=== PATIENT | male | born 1955 | race Caucasian/White ===

== ENCOUNTER 2017-09-12 07:53 | Inpatient (IN) | payer OTHER, BC ==
--- NOTE | 2017-09-12 08:44 | EDPHY ---
H & P Stated Complaint: 3 days of increasing weakness to bilat legs, difficulty in walking. HPI/ROS: CHIEF COMPLAINT: Leg weakness, "I'm losing so much strength" HISTORY OF PRESENT ILLNESS: The patient is a 62 y/o male complaining of progressive leg weakness and right-sided back pain over the past few weeks. He has a history of a remote neck injury causing incomplete quadriplegia with weakness in all extremities that is worse on the left side at baseline and multiple spinal fusions. He normally walks with a cane over short distances and wheelchair for long distances. He developed right-sided back pain a couple weeks ago that he was evaluated for by his PCP. X-rays at that time showed nothing acute. His weakness seemed to worsen from baseline around the same time and began to rapidly deteriorate this Saturday, 5 days ago. Since then his says he has been dragging his legs much more and having significant difficulty getting around. She called his neurosurgeon, Dr. Johnson, yesterday and was advised to come into the ED if symptoms worsened. This morning the patient "couldn't get in my truck this morning to go to work" so he came to the ED. He denies incontinence, saddle anesthesias, fever, recent illness, or recent trauma. REVIEW OF SYSTEMS: Constitutional: No fever, no chills Eyes: No visual changes ENT: No sore throat Respiratory: No cough, no shortness of breath Cardiac: No chest pain Gastrointestinal: No nausea, no vomiting, no abdominal pain Genitourinary: No hematuria, no dysuria Musculoskeletal: Worsening leg swelling Skin: Truncal rash for months Neurological: see HPI Psychiatric: No depression - Personal History Current Tetanus Diphtheria and Acellular Pertussis (TDAP): Yes - Medical/Surgical History PMH: PMH includes: 1. Incomplete quadriplegia secondary to neck injury 30 years ago 2. Multiple spinal fusions, spanning 8 vertebrae per patient, unsure of levels but thinks it is lumbar-midthoracic Hx Asthma: No Hx Chronic Respiratory Disease: No Hx Diabetes: No Hx Cardiac Disease: No Hx Renal Disease: No Hx Cirrhosis: No Hx Alcoholism: No Hx HIV/AIDS: No Hx Splenectomy or Spleen Trauma: No Other PMH: Back and neck surgery December. 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 Nonsmoker. Neurosurgeon: Dr. Johnson. PCP: Dr. Xiao - Physical Exam Exam: General Appearance: Alert, no distress Eyes: Pupils equal and round, no conjunctival pallor or injection ENT, Mouth: Mucous membranes moist Neck: Normal inspection Respiratory: Lungs are clear to auscultation Cardiovascular: Regular rate and rhythm Gastrointestinal: Abdomen is soft and non- tender Neurological: A&O, symmetric face, moving all extremities. Dorsiflexion of ankles is 4 on left and 4+ right, he is unable to raise his legs off bed and his left leg is worse than the right. 1+ patellar reflexes bilaterally. Gait: using walker and walking very slowly dragging both feet. Skin: Warm and dry, patchy rash on right lower thoracic area and right lateral abdomen Extremities: Nontender, 1+ pedal edema bilaterally. Psychiatric: Mood and affect normal Constitutional: Initial Vital Signs Temperature (C) 36.5 C 09/12/17 07:55 Heart Rate 55 L 09/12/17 07:55 Respiratory Rate 16 09/12/17 07:55 Blood Pressure 152/83 H 09/12/17 07:55 O2 Sat (%) 96 09/12/17 07:55 O2 Delivery Mode Nasal Cannula Allergies/Adverse Reactions: No Known Allergies Allergy (Unverified 05/18/09 07:59) Home Medications: Medication Instructions Recorded Acetaminophen [Tylenol ES 500 mg 1,500 mg PO BID PRN 09/12/17 (*)] Allopurinol [Allopurinol 300 MG 300 mg PO HS 09/12/17 (RX)] Baclofen [Baclofen 10 mg (*)] 10 mg PO HS 09/12/17 Herbals/Supplements -Info Only 1 ea PO DAILY 09/12/17 Hydrocodone/Acetaminophen 1 each PO 1200,2100 09/12/17 [Hydrocodon-Acetaminophn 10-325] Ibuprofen [Motrin (*)] 600 mg PO BID PRN 09/12/17 Indomethacin [Indocin 25 mg (*)] 50 mg PO DAILY PRN 09/12/17 Metaxalone [METAXALONE] 800 mg PO BID PRN 09/12/17 Pregabalin [Lyrica 100mg (*)] 100 mg PO TID 09/12/17 Terazosin HCl [Hytrin 2 MG (*)] 2 mg PO HS 09/12/17 Medical Decision Making - Diagnostics EKG Interpretation: EKG interpreted by me reveals normal sinus rhythm, rate 62, PVCs, no ST or T segment changes. Imaging Results: Cervical Spine MRI 09/12/17 08:42 Impression: Postsurgical changes of fusion at C4 to C7, with metal susceptibility artifact from the hardware, limiting visualization of this region. There does appear to be myelomalacia in the cervical cord. Mild degenerative disk and degenerative joint disease in the cervical spine above and below the level of fusion as above by level. Results called and discussed with Dr. Shelia Bell on September 12, 2017 at 1117 hours. Imaging: Discussed imaging studies w/ director call center sales Radiologist, I viewed and interpreted images myself ED Course/Re-evaluation: This is a 62 y/o male with incomplete quadriplegia resulting in extremity weakness that is worse on his left side who presents with several weeks of right midback pain and worsening leg weakness that accelerated over the last 5 days. He is now barely able to walk and is dragging both legs while using a walker. He has diminished strength in both legs on exam. Concerning for spinal cord compression. Plan for MRI of C/T/L/S spine, IV, basic labs, and UA. Consulted with Dr. Ortiz, neurosurgery. 1mg IV Dilaudid and 1mg IV Ativan administered prior to MRI scan. 1135: Consulted with Dr. Johnson, neurosurgery. He is reviewing imaging right now and is planning to take the pt to the OR for severe thoracic (T9-10) spinal stenosis. MRA of the thoracic spine reveals severe central spinal cord stenosis at T9-10 and possible diskitis/osteomyelitis. Reevaluated patient and discussed Dr. Johnson's recommendations with the pt. 1210: Dr. Johnson is in the ED assessing patient. Pt has been NPO throughout his ED stay. Preoperative labs and EKG unremarkable. Differential Diagnosis: includes though not limited to cauda equina syndrome, spinal fracture, osteomyelitis, epidural abscess, diskitis, CVA. - Data Points Laboratory Results: Laboratory Results 09/12/17 09:10 09/12/17 09:10 Medications Given: Acetaminophen (Tylenol) 1,000 mg PO Q8HRS FERDINAND Stop: 03/11/18 21:59 Last Admin: 09/13/17 14:45 Dose: 1,000 mg Baclofen (Baclofen) 10 mg PO HS FERDINAND Stop: 03/12/18 20:59 Last Admin: 09/13/17 20:12 Dose: 10 mg Famotidine (Pepcid) 20 mg PO BID FERDINAND Stop: 03/11/18 20:59 Last Admin: 09/13/17 20:13 Dose: 20 mg Hydromorphone HCl (Dilaudid) 0.2 - 0.4 mg IVP Q1HR PRN PRN Reason: Pain, Breakthrough Stop: 09/22/17 17:02 Last Admin: 09/13/17 20:05 Dose: 0.4 mg Norepinephrine/Sodium Chloride (Norepinephrine 8 Mcg/Ml (Premix)) 500 mls @ 0 mls/hr IV CONT FERDINAND; Titrate PRN Reason: Protocol Stop: 03/11/18 17:29 Last Admin: 09/12/17 22:20 Dose: 500 mls Sodium Chloride (Ns) 500 mls @ 1,500 mls/hr IV PRN PRN PRN Reason: map less than 85 Stop: 03/11/18 17:13 Last Admin: 09/12/17 23:03 Dose: 500 mls Methocarbamol (Robaxin) 750 mg PO QID PRN PRN Reason: Spasms Stop: 03/11/18 17:02 Last Admin: 09/13/17 16:18 Dose: 750 mg Oxycodone HCl (Oxycodone Ir) 5 - 10 mg PO Q4HRS PRN PRN Reason: Pain, Severe Able to Take PO Stop: 09/22/17 17:02 Last Admin: 09/13/17 16:17 Dose: 10 mg Polyethylene Glycol (Miralax) 17 gm PO TID FERDINAND Stop: 03/11/18 21:59 Last Admin: 09/13/17 16:18 Dose: 17 gm Pregabalin (Lyrica) 100 mg PO TID FERDINAND Stop: 03/12/18 08:59 Last Admin: 09/13/17 16:17 Dose: 100 mg Senna/Docusate Sodium (Senokot-S) 1 - 2 tab PO BID FERDINAND PRN Reason: Protocol Stop: 03/11/18 20:59 Last Admin: 09/13/17 20:13 Dose: 2 tab Terazosin HCl (Hytrin) 2 mg PO HS FERDINAND Stop: 03/12/18 20:59 Last Admin: 09/13/17 20:13 Dose: 2 mg Discontinued Medications Bacitracin (Bacitracin Syringe) Confirm Administered Dose 200,000 units IRR .STK -MED ONE Stop: 09/12/17 12:47 Last Admin: 09/12/17 14:37 Dose: 200,000 units Bupivacaine HCl (Sensorcaine 0.25% Sdv) Confirm Administered Dose 60 ml .ROUTE .STK-MED ONE Stop: 09/12/17 12:46 Last Admin: 09/12/17 15:31 Dose: 60 ml Chlorhexidine Gluconate (Hibiclens) Confirm Administered Dose 1 btl TP .STK-MED ONE Stop: 09/12/17 13:44 Last Admin: 09/12/17 14:38 Dose: 4 oz Epinephrine HCl (Epinephrine) Confirm Administered Dose 1 mg .ROUTE .STK-MED ONE Stop: 09/12/17 12:47 Last Admin: 09/12/17 14:41 Dose: 1 mg Fentanyl (Sublimaze) 25 - 100 mcg IVP Q5M PRN PRN Reason: PACU, IMMEDIATE Pain control Stop: 09/12/17 13:31 Last Admin: 09/12/17 17:26 Dose: 100 mcg Hydromorphone HCl (Dilaudid) 1 mg IVP EDNOW ONE Stop: 09/12/17 10:19 Last Admin: 09/12/17 10:31 Dose: 1 mg Hydromorphone HCl (Dilaudid) 0.1 - 0.4 mg IVP Q10M PRN PRN Reason: PACU, PAIN Stop: 09/12/17 13:31 Last Admin: 09/12/17 17:26 Dose: 0.4 mg Cefazolin Sodium (Cefazolin Syringe) 2 gm in 20 mls @ 200 mls/hr IVP ONCALL ONE PRN Reason: Protocol Stop: 09/12/17 13:00 Last Admin: 09/12/17 13:46 Dose: 20 mls Lactated Ringer's (Lr) 1,000 mls @ 0 mls/hr IV ONCE ONE PRN Reason: KVO Stop: 09/12/17 13:06 Last Admin: 09/12/17 19:57 Dose: Not Given Potassium Chloride/Sodium Chloride (Ns W/ 20 Kcl/L) 1,000 mls @ 100 mls/hr IV CONT FERDINAND Stop: 09/13/17 17:14 Last Admin: 09/13/17 06:17 Dose: 1,000 mls Cefazolin Sodium (Cefazolin Syringe) 2 gm in 20 mls @ 200 mls/hr IVP Q8HRS FERDINAND Stop: 09/13/17 06:05 Last Admin: 09/13/17 06:17 Dose: 20 mls Lorazepam (Ativan Injection) 1 mg IVP EDNOW ONE Stop: 09/12/17 10:53 Last Admin: 09/12/17 10:57 Dose: 1 mg Midazolam HCl (Versed) 2 mg IVP ONCALL ONE Stop: 09/12/17 12:32 Last Admin: 09/12/17 14:42 Dose: Not Given Thrombin (Thrombin-Jmi) Confirm Administered Dose 5,000 unit TP .STK-MED ONE Stop: 09/12/17 12:46 Last Admin: 09/12/17 14:42 Dose: 5,000 unit Departure - Departure Disposition: To OP Cath/Surgery Clinical Impression: Spinal stenosis, thoracic, Spinal cord compression, Leg weakness, bilateral Condition: Fair Report Scribed for: Shelia Bell Report Scribed by: Geovanna Johnson Date of Report: 09/12/17 Time of Report: 08:46 Physician Review and Approval Statement: 09/12/17 08:46 Portions of this note were transcribed by a medical device sales. I personally performed a history, physical exam, medical decision making, and confirmed accuracy of information the transcribed note.
[2017-09-12 09:14] LABS: PLATELET COUNT 206 10^3/uL (150-400)
[2017-09-12] MEDS ORDERED: HYDROmorphONE/DILAUDID 1 MG/ML INJ IVP ONE (10:18)
[2017-09-12] MEDS ORDERED: LORazepam 2 MG/ML INJ IVP ONE (10:52)
--- NOTE | 2017-09-12 12:23 | CPEKG ---
Heart Rate: 62 RR Interval: 968 P-R Interval: 172 QRSD Interval: 104 QT Interval: 436 QTC Interval: 443 P [place]: 46 QRS [place]: 5 T Wave [place]: 12 EKG Severity - ABNORMAL ECG - EKG Impression: SINUS RHYTHM EKG Impression: MULTIPLE VENTRICULAR PREMATURE COMPLEXES Electronically Signed By: Shelia Bell 12-Sep-2017 15:09:22
[2017-09-12] MEDS ORDERED: MIDAZOLAM 2 MG/2 ML VIAL IVP ONE (12:31)
[2017-09-12] MEDS ORDERED: ACETAMINOPHEN 500 MG TAB PO PRN (12:31)
[2017-09-12] MEDS ORDERED: ONDANSETRON 4 MG/2 ML VIAL IVP PRN ×2 (12:31→17:03)
[2017-09-12] MEDS ORDERED: HYDROmorphONE/DILAUDID 1 MG/ML INJ IVP PRN (12:31)
[2017-09-12] MEDS ORDERED: fentaNYL 100 MCG/2 ML INJ IVP PRN (12:31)
[2017-09-12] MEDS ORDERED: ALBUTEROL 3 ML DEYVIAL IH PRN (12:31)
[2017-09-12] MEDS ORDERED: DEXAMETHASONE 4 MG/ML VIAL IVP PRN (12:31)
[2017-09-12] MEDS ORDERED: NALOXONE HCL 0.4 MG/ML INJ IVP PRN (12:31)
--- NOTE | 2017-09-12 12:31 | PDANEPAE ---
ANE History of Present Illness Revision of Thoracic Fusion ANE Past Medical History - Cardiovascular History Hx Hypertension: No Hx Arrhythmias: No - Pulmonary History Hx COPD: No Hx Asthma/Reactive Airway Disease: No Hx Oxygen in Use at Home: No - Endocrine History Hx Diabetes: No - Neurological & Psychiatric Hx Hx Neurological and Psychiatric Disorders: Yes Neurological / Psychiatric History Comment: Incomplete Quadriplegia ANE Review of Systems Review of Systems: - Exercise capacity Exercise capacity: limited by disability ANE Patient History - Allergies Allergies/Adverse Reactions: No Known Allergies Allergy (Unverified 05/18/09 07:59) - Home Medications Home Medications: Allopurinol 09/12/17 [Last Taken Unknown] Baclofen 09/12/17 [Last Taken Unknown] Hydrocodone-Acetamin 10-300 mg 09/12/17 [Last Taken Unknown] Indomethacin 09/12/17 [Last Taken Unknown] Lyrica 09/12/17 [Last Taken Unknown] METAXALONE 09/12/17 [Last Taken Unknown] Terazosin HCl 09/12/17 [Last Taken Unknown] - NPO status NPO Since - Liquids (Date): 09/12/17 NPO Since - Liquids (Time): 06:00 NPO Since - Solids (Date): 09/12/17 NPO Since - Solids (Time): 06:00 - Smoking Hx Smoking Status: Never smoked ANE Labs/Vital Signs - Labs Result Diagrams: 09/12/17 09:10 09/12/17 09:10 - Vital Signs Blood Pressure: 133/50 Heart Rate: 55 Respiratory Rate: 18 O2 Sat (%): 96 Height: 177.8 cm Weight: 90.718 kg ANE Physical Exam - Airway Neck exam: FROM Mallampati Score: Class 2 Mouth exam: normal dental/mouth exam - Pulmonary Pulmonary: clear to auscultation - Cardiovascular Cardiovascular: regular rate and rhythym - ASA Status ASA Status: III, E ANE Anesthesia Plan Anesthesia Plan: general endotracheal anesthesia Lines/Monitors: arterial line Total IV Anesthesia: Yes
--- NOTE | 2017-09-12 12:32 | PDGENHP ---
History and Physical History and Physical: full note has been dictated. patient is well known to me an d has a fusion T10- Sacrum and presents with a 7 days history of progressive LE weaknes/paralysis. MRI T spine shows adjacent level breakdown with severe spinal stenosis and cord compression with some cord signal changes. he has profound weakness in his legs. plan for surgical intervention in the way of a T9/10 laminectomy/ interbody cage with extension of his hardware and fusion up to T9. all questions answered and he and his were in agreement with the plan.
[2017-09-12] MEDS ORDERED: BUPIVACAINE 0.25% 30 ML SDV ONE (12:45)
[2017-09-12] MEDS ORDERED: THROMBIN (BOVINE) 5,000 UNIT VIAL TP ONE (12:45)
[2017-09-12] MEDS ORDERED: BACITRACIN 50,000 UNITS/10 ML SYR IRR ONE (12:46)
[2017-09-12] MEDS ORDERED: SUCCINYLCHOLINE CHLORIDE 200 MG/10 ML SYR IVP ONE (12:50)
[2017-09-12] MEDS ORDERED: PROPOFOL/EMULSION 500 MG/50 ML BOTTLE IV ONE ×3 (12:50)
[2017-09-12] MEDS ORDERED: VASOPRESSIN 20 UNIT/ML VIAL ONE (12:51)
[2017-09-12] MEDS ORDERED: ceFAZolin 2 GM/SWFI 2 GM/20 ML SYR IVP ONE (12:55)
[2017-09-12] MEDS ORDERED: REMIFENTANIL HCL 1 MG VIAL ONE ×3 (12:55)
[2017-09-12] MEDS ORDERED: LIDOCAINE 2% 5 ML SDV ONE (13:00)
[2017-09-12] MEDS ORDERED: ceFAZolin 2 GM/SWFI 20 ML SYR IVP ONE (13:04)
[2017-09-12] MEDS ORDERED: LR 1,000 ML IV ONE (13:05)
--- NOTE | 2017-09-12 13:07 | GCON ---
[f rep st] CONSULTATION REASON FOR CONSULTATION: Lower extremity paralysis and weakness, progressive over 7-days. HISTORY OF PRESENT ILLNESS: This gentleman is well known to me. He is a 62- year-old gentleman with a known history of lower extremity weakness who has undergone extensive spinal surgery by myself including most recently a T10 through sacral fusion. He has also had a remote neck injury, which caused complete quadriplegia and weakness in all his extremities, a long time ago, which causes baseline left-sided greater than right-sided weakness. He generally ambulates with a cane, but states that approximately 1-week ago he developed worsening radiating pain around towards his umbilicus with worsening lower extremity weakness. He monitored this closely over last several days, and in fact, called our office on the 11 September 2016. The patient was encouraged to go to the emergency department for his ongoing weakness. He went to the emergency department this morning at [facility] where imaging studies demonstrate severe adjacent level spinal stenosis at the T9-T10 level with cord signal changes. The patient had been complaining of extensive weakness of the lower extremities, left worse than right, but no bowel or bladder incontinence, which is different from his baseline. He was unable to get into his car, which prompted his visit to the emergency department this morning. He currently denies any saddle anesthesia, fevers or recent chills and no traumas. REVIEW OF SYSTEMS: Complete 10-point review of systems from the patient intake form reviewed by myself significant only for those noted above in the HPI as well as increased bilateral leg swelling as well as increased truncal rash. PAST MEDICAL HISTORY: History of cervical spine trauma with lower extremity weakness. PAST SURGICAL HISTORY: Patient has undergone extensive spinal surgeries with most recent including a T10 to sacral fusion completed by myself at [facility]. He has also undergone prior cervical decompression fusion. 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 He is and his is at the bedside. Denies tobacco use. FAMILY HISTORY: Noncontributory. ALLERGIES: No known drug allergies. MEDICATIONS: Prior to admission: 1. Allopurinol. 2. Baclofen. 3. Vicodin. 4. Indomethacin. 5. Lyrica. 6. Metaxalone. 7. Terazosin. PHYSICAL EXAMINATION: VITAL SIGNS: Temperature 36.9, heart rate 55, respiratory rate 16, blood pressure is 152/83, saturating 96% on room air. GENERAL: The patient is lying in the bed. He has no acute distress. He is quite pleasant and cooperative with the examination. Mood and affect are appropriate. HEENT: Head is atraumatic, normocephalic. Pupils are equal, round, and reactive to light bilaterally. Extraocular movements are intact. Oropharynx is moist. CARDIOVASCULAR AND PULMONARY: Deferred. NEURO: Motor exam: The patient has 5/5 strength with bilateral animal rehabilitator strength biceps, triceps , deltoid. He has 0/5 right hip flexor and 2/5 left hip flexor, no evidence of any knee flexion extension at either leg, and 2/5 right dorsiflexion and plantar flexion of the right foot and 0/5 motion of the left plantar dorsiflexion. Sensory exam: Intact sensation to light touch throughout all the major dermatomes of bilateral upper and lower extremities throughout. Reflexes: He has 2+ reflexes at the bilateral brachioradialis and 1+ at the bilateral patella. No Babinski, no Peres. Cranial nerves 2 through 12 are intact. Tongue protrudes in the midline. Face is symmetric. Pupils are equal , round, and reactive to light bilaterally. Extraocular movements are intact. There is intact sensation. Denies numbness to his face to light touch bilaterally and hearing is intact to scratch plate bilaterally. MEDICAL DECISION MAKING: Patient underwent an MRI scan of the cervical and thoracic spine both of which were reviewed by myself on the [facility] PAC System. The MRI of the cervical spine demonstrates postsurgical changes, fusion C4 through C7 with stenosis distally artifact from hardware and limiting visualization of the area, but there is myelomalacia in the cervical cord and degenerative disk disease in the cervical spine above and below the level of fusion. Thoracic spine MRI demonstrates evidence of hardware from T10 extending into the lumbar spine. There is adjacent level breakdown with severe spinal cord stenosis T9-T10 with significant cord signal changes. There is slight kyphosis and disk height loss at the T9-T10 level. LABS: White count 4.91, platelets 206, sodium 143, potassium 4.2, BUN of 18, creatinine of 0.7. ASSESSMENT AND PLAN: The patient is a 62-year-old gentleman with a known history of prior spinal cord injury after neck trauma who has undergone prior lumbar fusions extensively by myself including most recently a T10 to sacral fusion. He presents with a 1-week history of progressive weakness in lower extremities and has profound weakness this morning on clinical examination. Imaging studies demonstrated adjacent level breakdown of the T9-T10 level with cord signal changes and severe spinal stenosis. I did review the films with the patient and his in the emergency department this afternoon where he was seen by myself. Given his profound lower extremity weakness and adjacent level breakdown, I have recommended surgical intervention in the way of a decompressive laminectomy, T9-T10 with extension of his hardware up to T9 level with interbody cage. He understands the risks, benefits, treatment and alternatives of surgery, but I am concerned about the fact of his ongoing paralysis and lack of improvement without surgical intervention. He understands and wishes to proceed. Consent has been signed at the bedside. Will to plan to take him emergently to the operating theater. All questions were answered. The patient and his are in agreement. /[id number]/MODL MTDD
[2017-09-12] MEDS ORDERED: CHLORHEXIDINE GLUC HIBICLENS 118 ML BTL TP ONE (13:43)
[2017-09-12] MEDS ORDERED: HYDROmorphONE/DILAUDID 2 MG/ML INJ ONE (15:51)
[2017-09-12] MEDS ORDERED: PROPOFOL 200 MG/20 ML VIAL ONE (16:49)
[2017-09-12] MEDS ORDERED: ALTEPLASE 2 MG VIAL IVP PRN (16:57)
[2017-09-12] MEDS ORDERED: ONDANSETRON DISINTEGRATING 4 MG TAB PO PRN (17:03)
[2017-09-12] MEDS ORDERED: BISACODYL 10 MG SUPP PR PRN (17:03)
[2017-09-12] MEDS ORDERED: MAGNESIUM HYDROXIDE 30 ML UDCUP PO PRN (17:03)
[2017-09-12] MEDS ORDERED: PROMETHAZINE HCL 25 MG/ML INJ IVP PRN (17:03)
[2017-09-12] MEDS ORDERED: LACTULOSE 20 GM/30 ML UDCUP PO PRN (17:03)
[2017-09-12] MEDS ORDERED: POLYETHYLENE GLYCOL 3350 17 GM PKT PO PRN (17:03)
[2017-09-12] MEDS ORDERED: fentaNYL 100 MCG/2 ML INJ ONE (17:24)
[2017-09-12] MEDS ORDERED: HYDROmorphONE/DILAUDID 1 MG/ML INJ ONE (17:24)
--- NOTE | 2017-09-12 17:25 | POSTOPPROG ---
Post Op Note Date of Operation: 09/12/17 Surgeon: Shamika Claudio Pasta Press Operator: Aiden Claudio PA-C Anesthesiologist: Brooke Anesthesia: GET(General Endotracheal) Pre-op Diagnosis: thoracic spinal stenosis, leg weakness Post-op Diagnosis: same Indication: severe leg weakness with associated spinal stenosis Procedure: T9-10 laminectomy, interbody cage placement, extension of fusion to T9 Findings: Please see dictation Inf/Abcess present in the surg proc area at time of surgery?: No Depth: Organ Space EBL: 100-500 Complications: none Drains: Marcio Perez Specimen(s): cultures sent PA Addendum - Addendum .: S: Pt in PACU, c/o back pain O: AAOx3 NAD VSS MAEx4 Motor 5/5 BUE, R quad 2+/5, L quad 2/5, slight twitch R foot when asked to wiggle toes, no movement left foot. No knee flexion or extension bilaterally thoracic spine incision is dressed cdi JPx1 Martin in [address] +LT A: 62 yo M s/p tie in to prior hardware with extension of fusion up to T9, T9- 10 laminectomy, interbody cage placement P: Pain management Pt is very weak in his legs and his exam is overall stable compared to pre operatively PT/OT Spine precautions Will determine what type of brace he needs tomorrow Martine, TOOs, renee POD#2 Post op xrays pending Keep MAP > 85 Call NS with any questions or concerns D/w Dr Johnson
--- NOTE | 2017-09-12 17:27 | POSTANESTH ---
Post Anesthetic Evaluation Cardiovascular Status: Normal, Stable Respiratory Status: Normal, Stable Level of Consciousness/Mental Status: Can Participate in Eval, Alert and Oriented Pain Control: Adequate, Prn Tx Ordered Nausea/Vomiting Control: Adequate, Prn Tx Ordered Complications Possibly Related to Anesthesia: None Noted
[2017-09-12] MEDS: HYDROmorphONE/DILAUDID 1 MG/ML INJ IVP PRN ×4 (18:28→22:24)
--- NOTE | 2017-09-12 19:28 | GOP ---
[f rep st] OPERATIVE REPORT DATE OF OPERATION: 09/12/2017 SURGEON: Oj Johnson MD DIANETICIST: QUINTEN oTrrez ANESTHESIA: General. PREOPERATIVE DIAGNOSIS: 1. Adjacent level breakdown at T9-T10 with history of prior fusion T10 to the sacrum. 2. Lower extremity paraparesis, progressive. 3. Back pain. POSTOPERATIVE DIAGNOSIS: 1. Adjacent level breakdown at T9-T10 with history of prior fusion T10 to sacrum. 2. Lower extremity paraparesis, progressive. 3. Back pain. PROCEDURE PERFORMED: 1. Posterior arthrodesis with approach to T9, T10, and T11. 2. Exploration of prior thoracic hardware and subsequent removal of nonsegmental instrumentation. 3. Placement of new bilateral pedicle screws into T9 from the Graftworxra 4.75 system. 4. Posterolateral fusion on the left between T9 and T10/T11, with morselized autograft and allograft. 5. Decompressive laminectomy with bilateral facetectomies, T9-T10. 6. Right-sided T9-T10 transforaminal interbody fusion using a 6 x 26 mm titanium coated PEEK cage filled with morselized autograft and allograft. 7. Use of intraoperative 3D Stealth navigation. 8. Use of intraoperative fluoroscopy, less than 1 hour physician time. 9. Use of neuromonitoring. 10. Use of the operating microscope. FINDINGS: per imaging; lots of scarring noted around the cord at the T9/10 level SPECIMENS: Culture was taken from the T9-T10 disk space. ESTIMATED BLOOD LOSS: 200 mL. INDICATIONS: Patient is a 62-year-old gentleman who is well known to me and has undergone multiple spinal fusions with the most recent one being a thoracic fusion T10 down to the lumbar spine. The patient had a 7-day history of progressive back pain with worsening lower extremity weakness and on clinical examination, had almost complete paralysis of his lower extremities. Imaging studies demonstrated spinal stenosis, severe in nature at the T9-T10 level above his prior spinal fusion. After discussion of risks, benefits, and treatment alternatives, after failing nonoperative interventions, we decided to proceed forth with surgery as described above. This was completed in an urgent manner given his profound weakness. Consents were signed and he agreed to proceed. DESCRIPTION OF PROCEDURE: Patient was brought to the operating theater and underwent general endotracheal anesthesia without complications. He had Venodynes, KRISTAN hose, and the appropriate lines placed by Anesthesia. His blood pressure was maintained with a MAP greater than 85 throughout the entire induction and throughout the entire surgical procedure. Baseline neuromonitoring was obtained in the lower extremities and was noted to be weaker in the lower extremities compared to the upper extremities with regard to the motor function. At this point, the patient was then flipped prone onto the Marcio table and all bony prominences inspected and padded. The previous incision was identified and marked more cranially. This area was then prepped and draped in usual sterile surgical fashion. A time-out was completed per protocol. The patient received antibiotics within 1 hour of incision. The incision was infiltrated with Marcaine with epinephrine and taken down with the scalpel blade. Using monopolar, the incision was taken down the midline through the thoracic fascia and a subperiosteal dissection carried out laterally to the edges of the transverse processes bilaterally at T9 with exposure of the hardware at T10 down to T11. Deep retractors were placed to maintain our exposure. We attached the 3D Stealth navigation clamp to the spinous process of T10 and completed a 3D Stealth navigation spin. Using 3D Stealth navigation, we placed the captain airline pilot holes for the bilateral pedicle screws in T9. All holes were manually palpated with no evidence of any cortical breaches. We then tapped and placed 5.0 x 45 mm screw on the left at T9 and 5.5 x 50 mm screw on the right T9 from the Medtronic Solera 4.75 system. At this point, we explored the hardware at the T10-T11 level and removed the midline cross connector which was then passed off the field. This was completed after we removed the bone growth around the hardware. The patient appeared to be solidly fused between the T9-T10 level with good bony growth around the hardware. At this point, we brought the microscope into field to assist with microscopic dissection and maintain illumination and magnification. Using a combination of bur tip on the drill bit, Kerrison punches, and Leksell rongeur, we completed decompressive laminectomy at the T9-T10 level. The tissues were noted to be extremely adherent and ligamentum flavum thickening circumferentially around the cord, which was taken down very carefully with the micro pituitaries and #2 Kerrison punch. Once we felt that we had good circumferential dissection, we resected the pars on the right side and completed a facetectomy between T9 and T10. We distracted the right-sided disk space and completed a right-sided T9/T10 diskectomy. We did a culture of the T9-T10 disk space and sent it off to Microbiology just in case based on the imaging. We measured the interbody space and then placed a 6 x 26 mm titanium- coated PEEK cage filled with morselized autograft and allograft anteriorly toward the midline. We packed additional morcellized autograft in the disk space for the interbody fusion. We let down distraction, decorticated the bone on the left side between T9 and T10-T11. The wound was irrigated copiously with bacitracin irrigation. We placed 2 lateral connectors between the T10-T11 level and connected up the rods that were connected into the heads of the screws bilaterally at T9. Given his slight kyphosis at the adjacent level, we applied some dorsal compression across the screws to help compression dorsally. The rods were then secured down with cap screws, which were tightened per the assistant maintenance manager's setting. A drain was left in the subfascial space and we decorticated the bone on the left side between T9 and T10-T11 for the posterolateral fusion. We placed morselized autograft and allograft on the left side between T9 and T10-T11 for the posterolateral fusion. A drain was left in the subfascial space and the wound was then closed in multiple layers using Vicryl sutures for the deep layers and Dermabond for the skin. The patient's wounds were dressed sterilely. The neuromonitoring was noted to be stable throughout the entire procedure. There were no complications , and the sponge, needle and instrument counts were correct at the end of the case. The patient was still asleep at the time of this dictation. COMPLICATIONS: None. /[id number]/MODL MTDD
[2017-09-12] MEDS: METHOCARBAMOL 750 MG TAB PO PRN (21:05)
[2017-09-12] MEDS: oxyCODONE IR 5 MG TAB PO PRN ×2 (21:05→22:24)
[2017-09-12] MEDS: SENNOSIDES/DOCUSATE SODIUM TAB PO SCH (21:06)
[2017-09-12] MEDS: FAMOTIDINE 20 MG TAB PO SCH (21:06)
[2017-09-12] MEDS ORDERED: ceFAZolin 2 GM/DEXTROSE 100 ML IV SCH (22:00)
[2017-09-12] MEDS: ceFAZolin 2 GM/SWFI 2 GM/20 ML SYR IVP SCH (22:20)
[2017-09-12] MEDS: NOREPINEPHRINE/NS 500 ML IV SCH (22:20)
[2017-09-12] MEDS: POLYETHYLENE GLYCOL 3350 17 GM PKT PO SCH (22:21)
[2017-09-12] MEDS: ACETAMINOPHEN 500 MG TAB PO SCH (22:24)
[2017-09-12] MEDS: NS 500 ML IV PRN (23:03)
[2017-09-12] MEDS: NS W/ 20 KCl/L 1,000 ML IV SCH (23:07)
[2017-09-13] MEDS: HYDROmorphONE/DILAUDID 1 MG/ML INJ IVP PRN ×2 (02:38→20:05)
[2017-09-13] MEDS: oxyCODONE IR 5 MG TAB PO PRN ×5 (02:42→22:02)
[2017-09-13] MEDS: METHOCARBAMOL 750 MG TAB PO PRN ×3 (04:35→16:18)
[2017-09-13 04:38] LABS: PLATELET COUNT 168 10^3/uL (150-400)
[2017-09-13] MEDS: NS W/ 20 KCl/L 1,000 ML IV SCH (06:17)
[2017-09-13] MEDS: ACETAMINOPHEN 500 MG TAB PO SCH ×3 (06:17→22:01)
[2017-09-13] MEDS: ceFAZolin 2 GM/SWFI 2 GM/20 ML SYR IVP SCH (06:17)
--- NOTE | 2017-09-13 08:31 | NEUSURGPN ---
Assessment/Plan: A: 62 yo M s/p tie in to prior hardware with extension of fusion up to T9, T9- 10 laminectomy, interbody cage placement for spinal stenosis and profound leg weakness POD#1 P: Pain management Pt leg strength is improved significantly this am PT/OT Spine precautions Pt's to bring brace from home, he should wear this when OOB Cx - NGTD, gram stain clear TEDs, SCDs, lovenox POD#2 Post op xrays pending Keep MAP > 85 Call NS with any questions or concerns PT seen and d/w Dr Johnson Subjective: Pt resting in bed, c/o significant back pain. Left foot feels numb. Objective: AAOx3 NAD VSS MAEx4 Incision dressed cdi ASHA drain productive Motor exam: R quad 4/5, L quad 4-/5, R foot df/pf 4/5, L foot wiggles toes, df/ pf 3+/5 +LT Urinary Catheter in Place: Yes Urinary Catheter Indication: Surgical Requirement Catheter Insertion Date: 09/12/17 - Physician Discussed Patient with DrBrent: Elizabeth Patient Seen by : Elizabeth Neurosurgery Physical Exam - Vitals, I&O, Labs I and O 09/12/17 09/13/17 09/14/17 05:59 05:59 05:59 Intake Total 3779 Output Total 1780 10 Balance 1998 Weight 91.9 kg 94.5 kg Intake: Oral (ml) 150 IV Intake (ml) 1900 IV Infused (ml) 1729 NS W/ 20 KCl/L 1,000 ml @ 1117 100 mls/hr IV CONT FERDINAND Rx#:[id number] Norepinephrine/Ns 500 ml 112 @ Titrate IV CONT FERDINAND Rx# :[id number] Ns 500 ml @ 1500 mls/hr 500 IV PRN PRN Rx#:[id number] Output: Urine (ml) 1300 Catheter 1300 Estimated Blood Loss (ml) 200 ASHA Drain Output (ml) 280 10 #1 Left Posterior Back 280 10 Marcio Perez Other: Number of Stools Catheter 0 Microbiology 09/12/17 16:07 Gram Stain - Final Vertebral Disc Vital Signs Temp Pulse Resp BP Pulse Ox 37.1 C 75 19 131/83 H 99 09/13/17 07:00 09/13/17 07:00 02/09/18 07:00 09/13/17 07:00 09/13/17 07:00 Laboratory Results 09/13/17 04:25 09/13/17 04:25 ICD10 Worksheet Patient Problems: Problems Problem Status Onset Leg weakness, bilateral Acute Spinal cord compression Acute Spinal stenosis, thoracic Acute
[2017-09-13] MEDS: PREGABALIN 100 MG CAP PO SCH ×2 (09:24→16:17)
[2017-09-13] MEDS: FAMOTIDINE 20 MG TAB PO SCH ×2 (09:24→20:13)
[2017-09-13] MEDS: POLYETHYLENE GLYCOL 3350 17 GM PKT PO SCH ×3 (09:25→22:47)
[2017-09-13] MEDS: SENNOSIDES/DOCUSATE SODIUM TAB PO SCH ×2 (09:25→20:13)
--- NOTE | 2017-09-13 10:07 | ASMTCASEMG ---
Living Arrangements What is your living Answers: With Spouse arrangement? Who do you live with? Type Of Residence What kind of residence do Answers: House you live in? Discharge Plan Comments Coordination Status Comments Notes: Patient is a 62 yo male who was admitted for bilateral leg weakness resulting from severe spinal stenosis and cord compression with some cord signal changes. Patient will need surgical intervention. OT/PT have been ordered. D/C needs TBD. CM will follow. Date Signed: 09/13/2017 10:06 AM Electronically Signed By:Ashley Wen LCSW
[2017-09-13] MEDS: BACLOFEN 10 MG TAB PO SCH (20:12)
[2017-09-13] MEDS: TERAZOSIN HCL 2 MG CAP PO SCH (20:13)
[2017-09-13] MEDS: ALLOPURINOL 300 MG TAB PO SCH (22:01)
[2017-09-13] MEDS: DIAZEPAM 5 MG TAB PO PRN (22:02)
[2017-09-14] MEDS: NOREPINEPHRINE/NS 500 ML IV SCH ×3 (00:06→23:12)
[2017-09-14] MEDS: NS 500 ML IV PRN ×2 (00:07→19:00)
[2017-09-14] MEDS: PREGABALIN 100 MG CAP PO SCH ×4 (03:09→20:46)
[2017-09-14] MEDS: METHOCARBAMOL 750 MG TAB PO PRN ×2 (05:08→10:35)
[2017-09-14] MEDS: POLYETHYLENE GLYCOL 3350 17 GM PKT PO SCH ×3 (05:08→20:46)
[2017-09-14] MEDS: ACETAMINOPHEN 500 MG TAB PO SCH ×3 (05:08→20:44)
[2017-09-14] MEDS: FAMOTIDINE 20 MG TAB PO SCH ×2 (07:41→20:45)
[2017-09-14] MEDS: oxyCODONE IR 5 MG TAB PO PRN ×4 (07:41→20:45)
[2017-09-14] MEDS: SENNOSIDES/DOCUSATE SODIUM TAB PO SCH ×2 (07:41→20:47)
--- NOTE | 2017-09-14 08:11 | NEUSURGPN ---
Date of Surgery: 09/12/17 Post Op Day: 2 Assessment/Plan: A: 62 yo M s/p tie in to prior hardware with extension of fusion up to T9, T9- 10 laminectomy, interbody cage placement for spinal stenosis and profound leg weakness POD#2 P: Pain management PT/OT Spine precautions Wear TLSO brace when out of bed Cx - NGTD, gram stain clear TEDs, SCDs, lovenox POD#2 Post op xrays pending Keep MAP > 85 for 5 days total, levophed if needed. Call NS with any questions or concerns Subjective: Pain controlled. [place] brace increases his incisional pain. Objective: AAOx3 NAD VSS MAEx4 Incision dressed cdi Motor exam: R quad 4-/5, L quad 4-/5, R foot df/pf 4/5, L foot wiggles toes, df/ pf 3+/5 +LT Catheter Insertion Date: 09/12/17 - Physician Discussed Patient with : Elizabeth Neurosurgery Physical Exam - Vitals, I&O, Labs I and O 09/13/17 09/14/17 09/15/17 05:59 05:59 05:59 Intake Total 3779 3559 Output Total 1780 4620 Balance 1998 Weight 91.9 kg 94.5 kg Intake: Oral (ml) 150 1150 IV Intake (ml) 1900 IV Infused (ml) 1729 2409 NS W/ 20 KCl/L 1,000 ml @ 1117 1240 100 mls/hr IV CONT FERDINAND Rx#:[id number] Norepinephrine/Ns 500 ml 112 669 @ Titrate IV CONT FERDINAND Rx# :[id number] Ns 500 ml @ 1500 mls/hr 500 500 IV PRN PRN Rx#:[id number] Output: Urine (ml) 1300 4600 Catheter 1300 4600 Estimated Blood Loss (ml) 200 ASHA Drain Output (ml) 280 20 #1 Left Posterior Back 280 20 Marcio Perez Other: Output Comment Catheter flatus Number of Stools Catheter 0 0 Microbiology 09/12/17 16:07 Gram Stain - Final Vertebral Disc Vital Signs Temp Pulse Resp BP Pulse Ox 37.1 C 95 12 127/64 H 93 09/13/17 21:00 09/14/17 07:00 09/14/17 07:00 09/14/17 07:00 09/14/17 07:00 Laboratory Results 09/13/17 04:25 09/13/17 04:25 ICD10 Worksheet Patient Problems: Problems Problem Status Onset Leg weakness, bilateral Acute Spinal cord compression Acute Spinal stenosis, thoracic Acute
[2017-09-14] MEDS ORDERED: MAGNESIUM HYDROXIDE 30 ML UDCUP PO PRN (10:47)
[2017-09-14] MEDS ORDERED: BISACODYL 10 MG SUPP PR PRN (10:47)
[2017-09-14] MEDS ORDERED: POLYETHYLENE GLYCOL 3350 17 GM PKT PO PRN (10:47)
[2017-09-14] MEDS ORDERED: LACTULOSE 20 GM/30 ML UDCUP PO PRN (10:47)
[2017-09-14] MEDS: HYDROmorphONE/DILAUDID 1 MG/ML INJ IVP PRN (13:11)
--- NOTE | 2017-09-14 13:37 | PDINTPN ---
Blueprint Machine Operator Progress Note Assessment/Plan: Assessment: Status post thoracic laminectomy and and fusion for spinal stenosis. Adequate pain control. Relative hypotension: On norepinephrine to keep MAP above 80 for cord perfusion. 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 Prophylaxis: On Lovenox and famotidine. Plan: The patient will be kept in the ICU on norepinephrine to maintain MAP 80 or greater. Continue pain management. Follow laboratory intermittently. Continue bowel protocol. Subjective: Doing well. Some expected back pain. Eating. He cannot tell yet if lower extremity strength is any better. Objective: Vital Signs Temp Pulse Resp BP Pulse Ox 37.6 C 96 14 125/68 H 90 L 09/14/17 13:00 09/14/17 13:00 09/14/17 13:00 09/14/17 13:00 09/14/17 13:00 Microbiology 09/12/17 16:07 Gram Stain - Final Vertebral Disc Laboratory Results 09/13/17 04:25 09/13/17 04:25 09/13/17 09/14/17 09/15/17 05:59 05:59 05:59 Intake Total 3779 3559 Output Total 1780 4620 1100 Balance 1998 -1061 -1100 Physical Exam - Physical Exam General Appearance: alert, no apparent distress EENT: PERRL/EOMI, other (On room air) Neck: normal inspection Respiratory: lungs clear, decreased breath sounds, No rales, No rhonchi Cardiac/Chest: regular rate, rhythm Abdomen: normal bowel sounds, non-tender, soft, distended (Somewhat distended. No BM yet.) Male Genitalia: other (Catheter in place, good urine output.) Skin: normal color, warm/dry Extremities: pedal edema (Trace) Neuro/Psych: No no motor/sensory deficits (No change in upper, lower extremity weakness and function), No cognition abnormalities ICD10 Worksheet Patient Problems: Problems Problem Status Onset Spinal stenosis, thoracic Acute Spinal cord compression Acute Leg weakness, bilateral Acute
[2017-09-14] MEDS: ENOXAPARIN 40 MG/0.4 ML SYR SC SCH (15:58)
[2017-09-14] MEDS: diphenhydrAMINE 25 MG CAP PO PRN (16:54)
[2017-09-14] MEDS ORDERED: PROTOCOL POTASSIUM 1 DOSE MISC PRN (20:07)
[2017-09-14] MEDS ORDERED: PROTOCOL MAGNESIUM 1 DOSE IV PRN (20:07)
[2017-09-14] MEDS ORDERED: METOPROLOL TARTRATE 5 MG/5 ML INJ IVP ONE (20:15)
[2017-09-14] MEDS ORDERED: POTASSIUM Cl (KCl) 50 ML IV ONE (20:28)
[2017-09-14] MEDS: ALLOPURINOL 300 MG TAB PO SCH (20:44)
[2017-09-14] MEDS: BACLOFEN 10 MG TAB PO SCH (20:44)
[2017-09-14] MEDS: TERAZOSIN HCL 2 MG CAP PO SCH (20:47)
[2017-09-14] MEDS ORDERED: SENNOSIDES/DOCUSATE SODIUM TAB PO SCH (21:00)
[2017-09-14] MEDS ORDERED: MAGNESIUM SULF 1 GM/DEXTROSE 100 ML IV ONE (22:26)
[2017-09-15] MEDS: oxyCODONE IR 5 MG TAB PO PRN ×4 (03:34→21:13)
[2017-09-15] MEDS: NOREPINEPHRINE/NS 500 ML IV SCH ×2 (03:36→17:58)
[2017-09-15] MEDS: NS 500 ML IV PRN (03:37)
[2017-09-15] MEDS ORDERED: MAGNESIUM SULF 1 GM/DEXTROSE 100 ML IV ONE (05:31)
[2017-09-15] MEDS: METHOCARBAMOL 750 MG TAB PO PRN ×3 (05:37→14:46)
[2017-09-15] MEDS: ACETAMINOPHEN 500 MG TAB PO SCH ×3 (05:37→21:12)
--- NOTE | 2017-09-15 08:31 | NEUSURGPN ---
Date of Surgery: 09/12/17 Post Op Day: 3 Assessment/Plan: A: 62 yo M s/p tie in to prior hardware with extension of fusion up to T9, T9- 10 laminectomy, interbody cage placement for spinal stenosis and profound leg weakness POD#3 P: Pain management PT/OT Spine precautions Wear TLSO brace when out of bed Cx - NGTD, gram stain clear TEDs, SCDs, lovenox POD#2 Post op xrays pending Keep MAP > 85 for 5 days total, levophed if needed. Appreciate critical care following Continue ICU status due to keeping MAPs elevated Call NS with any questions or concerns Subjective: Surgical pain controlled. No overnight issues. Objective: AAOx3 NAD VSS MAEx4 Incision dressed cdi Motor exam: R quad 4-/5, L quad 4-/5, R foot df/pf 4/5, L foot wiggles toes, df/ pf 3+/5 +LT Catheter Insertion Date: 09/12/17 Neurosurgery Physical Exam - Vitals, I&O, Labs I and O 09/14/17 09/15/17 09/16/17 05:59 05:59 05:59 Intake Total 3559 2693 Output Total 4620 2475 Balance -1061 218 Weight 94.5 kg Intake: Oral (ml) 1150 250 IV Intake (ml) 1000 IV Infused (ml) 2409 1443 NS W/ 20 KCl/L 1,000 ml @ 1240 100 mls/hr IV CONT FERDINAND Rx#:[id number] Norepinephrine/Ns 500 ml 669 1443 @ Titrate IV CONT FERDINAND Rx# :[id number] Ns 500 ml @ 1500 mls/hr 500 IV PRN PRN Rx#:[id number] Output: Urine (ml) 4600 2475 Catheter 4600 1100 Urinal 1375 ASHA Drain Output (ml) 20 #1 Left Posterior Back 20 Marcio Perez Other: Output Comment Catheter flatus Number of Voids Urinal 1 Number of Stools Catheter 0 Urinal 0 Post Void Residual Scan Volume (ml) Urinal 240 Microbiology 09/12/17 16:07 Gram Stain - Final Vertebral Disc Vital Signs Temp Pulse Resp BP Pulse Ox 37.0 C 84 17 137/63 H 95 09/15/17 07:00 09/15/17 08:00 09/15/17 08:00 09/15/17 08:00 09/15/17 08:00 Laboratory Results 09/13/17 04:25 09/15/17 04:30 ICD10 Worksheet Patient Problems: Problems Problem Status Onset Leg weakness, bilateral Acute Spinal cord compression Acute Spinal stenosis, thoracic Acute
[2017-09-15] MEDS: PREGABALIN 100 MG CAP PO SCH ×3 (08:47→21:13)
[2017-09-15] MEDS: SENNOSIDES/DOCUSATE SODIUM TAB PO SCH ×2 (08:48→21:13)
[2017-09-15] MEDS: ENOXAPARIN 40 MG/0.4 ML SYR SC SCH (08:48)
[2017-09-15] MEDS: FAMOTIDINE 20 MG TAB PO SCH ×2 (08:48→21:13)
[2017-09-15] MEDS: HYDROmorphONE/DILAUDID 1 MG/ML INJ IVP PRN (09:32)
--- NOTE | 2017-09-15 13:29 | PDINTPN ---
Communications Systems Engineer Progress Note Assessment/Plan: Assessment: Status post thoracic laminectomy and and fusion for spinal stenosis. Adequate pain control. Relative hypotension: On norepinephrine to keep MAP above 80 for cord perfusion. 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 Prophylaxis: On Lovenox and famotidine. Left lower extremity discomfort: Will rule out a DVT. Episode of SVT last night. Lasted a few minutes and spontaneously resolved. Not hypotensive, no chest pain. He has had several episodes of presumed SVT previously but evaluations did not seed cone picker the arrhythmia. Constipation: On bowel protocol. No BM yet. Plan: The patient will be kept in the ICU on norepinephrine to maintain MAP 80 or greater. Continue to monitor heart rate. If further SVT occurs then a beta- rojelio will be added. Ultrasound left lower extremity. Continue pain management. Follow laboratory intermittently. Continue bowel protocol. Subjective: Complains of pain in his left calf. He feels this may be neurogenic? Back pain is better. Objective: Vital Signs Temp Pulse Resp BP Pulse Ox 37.1 C 88 19 139/67 H 95 09/15/17 12:00 09/15/17 12:00 09/15/17 12:00 09/15/17 12:00 09/15/17 12:00 Microbiology 09/12/17 16:07 Gram Stain - Final Vertebral Disc Laboratory Results 09/13/17 04:25 09/15/17 04:30 09/14/17 09/15/17 09/16/17 05:59 05:59 05:59 Intake Total 3559 2693 Output Total 4620 2475 Balance -1061 218 Physical Exam - Physical Exam General Appearance: alert, no apparent distress, other (Up in the chair, brace in place) EENT: PERRL/EOMI, other (On room air: 95%) Neck: normal inspection Respiratory: lungs clear, decreased breath sounds (At bases) Cardiac/Chest: regular rate, rhythm Abdomen: non-tender, distended (Mild), other (No BM), No normal bowel sounds ( Decreased, present), No soft (Distant) Skin: warm/dry Extremities: swelling (Left lower extremity tender posteriorly over the calf. Approximately a 0.5 in in size greater than the right. No obvious cords.), No pedal edema Neuro/Psych: No no motor/sensory deficits, No cognition abnormalities ICD10 Worksheet Patient Problems: Problems Problem Status Onset Spinal stenosis, thoracic Acute Spinal cord compression Acute Leg weakness, bilateral Acute
[2017-09-15] MEDS: diphenhydrAMINE 25 MG CAP PO PRN (19:21)
[2017-09-15] MEDS: BACLOFEN 10 MG TAB PO SCH (21:13)
[2017-09-15] MEDS: ALLOPURINOL 300 MG TAB PO SCH (21:13)
[2017-09-15] MEDS: TERAZOSIN HCL 2 MG CAP PO SCH (21:13)
[2017-09-16] MEDS: oxyCODONE IR 5 MG TAB PO PRN ×4 (06:06→21:44)
[2017-09-16] MEDS: ACETAMINOPHEN 500 MG TAB PO SCH ×3 (06:06→21:43)
--- NOTE | 2017-09-16 06:52 | NEUSURGPN ---
Date of Surgery: 18 Post Op Day: 4 Assessment/Plan: Assessment: 62 yo M s/p tie in to prior hardware with extension of fusion up to T9, T9-10 laminectomy, interbody cage placement for spinal stenosis and profound leg weakness POD #4 Plan: -continue with pain management -PT/OT ordered -wear TLSO brace when out of bed -Cx - NGTD, gram stain clear (at 72 hrs) -TEDs, SCDs, lovenox started POD#2 -post op xrays pending -keep MAP > 85 for 5 days total, levophed if needed -appreciate critical care following -continue ICU status due to keeping MAPs elevated -call NS with any questions or concerns -d/w Dr Johnson -case management will need to find placement please Subjective: Awake and alert. NAD. Eating/drinking and voiding. No f/c/n/v/d. No new complaints per RN Objective: AAOx3 NAD VSS MAEx4 Incision dressed cdi Motor exam: R quad 3+/5, L quad 3/5, R foot df/pf 4-/5, L foot wiggles toes, df/ pf 3+/5 +LT Neuro Check Frequency: per routine Urinary Catheter in Place: No Catheter Insertion Date: 18 - Physician Discussed Patient with : Elizabeth Neurosurgery Physical Exam - Vitals, I&O, Labs I and O 18 18 18 05:59 05:59 05:59 Intake Total 2693 1483 Output Total 2475 1100 Balance 218 383 Intake: Oral (ml) 250 700 IV Intake (ml) 1000 319 IV Infused (ml) 1443 464 Norepinephrine/Ns 500 ml 1443 464 @ Titrate IV CONT FERDINAND Rx# :[id number] Output: Urine (ml) 2475 1100 Catheter 1100 Urinal 1375 1100 Other: Number of Voids Urinal 1 2 Number of Stools Urinal 0 Post Void Residual Scan Volume (ml) Urinal 240 Microbiology 09/12/17 16:07 Gram Stain - Final Vertebral Disc Vital Signs Temp Pulse Resp BP Pulse Ox 37.2 C 71 17 121/56 H 95 09/15/17 16:00 09/16/17 05:00 09/16/17 05:00 09/16/17 05:00 09/16/17 05:00 Laboratory Results 09/16/17 04:15 09/15/17 15:20 ICD10 Worksheet Patient Problems: Problems Problem Status Onset Leg weakness, bilateral Acute Spinal cord compression Acute Spinal stenosis, thoracic Acute
[2017-09-16] MEDS: ENOXAPARIN 40 MG/0.4 ML SYR SC SCH (08:14)
[2017-09-16] MEDS: FAMOTIDINE 20 MG TAB PO SCH ×2 (08:14→19:53)
[2017-09-16] MEDS: PREGABALIN 100 MG CAP PO SCH ×3 (08:15→21:44)
[2017-09-16] MEDS: SENNOSIDES/DOCUSATE SODIUM TAB PO SCH ×2 (08:15→19:53)
--- NOTE | 2017-09-16 09:11 | PDINTPN ---
Tube Drawer Progress Note Assessment/Plan: Assessment/Plan: * Status post thoracic laminectomy and fusion for spinal stenosis. Adequate pain control. * Relative hypotension: On norepinephrine to keep MAP above 80 for cord perfusion. 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 * Pain-well controlled. * Prophylaxis: On Lovenox and famotidine. * Left lower extremity discomfort: Will rule out a DVT. * Episode of SVT x1. No further episodes. * Constipation: On bowel protocol. * PT/OT-begin ambulation * Nutrition-adequate Subjective: Resting comfortably. Pain well controlled. Is having difficulty ambulating. Objective: Vital Signs Temp Pulse Resp BP Pulse Ox 37.1 C 86 16 135/70 H 93 09/16/17 08:00 09/16/17 08:00 09/16/17 08:00 09/16/17 08:00 09/16/17 08:00 Microbiology 09/12/17 16:07 Gram Stain - Final Vertebral Disc Laboratory Results 09/16/17 04:15 09/15/17 15:20 09/15/17 09/16/17 09/17/17 05:59 05:59 05:59 Intake Total 2693 2165 Output Total 2475 2000 Balance 218 165 - Time Spent With Patient Time Spent With Patient: 35 min of time spent with patient, over 1/2 involved with coordination of care or counseling. Case discussed with nursing. Physical Exam - Physical Exam General Appearance: alert EENT: PERRL/EOMI, normal ENT inspection Neck: non-tender, full range of motion, supple, normal inspection Respiratory: chest non-tender, lungs clear, normal breath sounds Cardiac/Chest: normal peripheral pulses, regular rate, rhythm Peripheral Pulses: 2+: carotid (R), carotid (L), femoral (R), femoral (L), dorsalis-pedis (R), dorsalis-pedis (L) Abdomen: normal bowel sounds, non-tender, soft Male Genitalia: deferred Rectal: deferred Skin: normal color, warm/dry Lymphatic: no adenopathy Extremities: non-tender ICD10 Worksheet Patient Problems: Problems Problem Status Onset Leg weakness, bilateral Acute Spinal cord compression Acute Spinal stenosis, thoracic Acute
[2017-09-16] MEDS: NOREPINEPHRINE/NS 500 ML IV SCH (10:14)
--- NOTE | 2017-09-16 16:11 | ASMTCMCOM ---
CM Note CM Note Notes: Spoke to patient and his [place]. They are very interested in Acute Rehab. He has [facility] which has been reluctant in the past to pay for Acute Rehab. He reports in the past being at [facility] and [facility]. He has also been at [facility] and didn't receive the rehab promised. This CM sent referrals to [facility], [facility] and [facility]. Patient and chose [facility]-they were informed and will work on ins auth. Date Signed: 09/16/2017 04:10 PM Electronically Signed By:Jane Mosley LCSW
[2017-09-16] MEDS: ALLOPURINOL 300 MG TAB PO SCH (19:53)
[2017-09-16] MEDS: TERAZOSIN HCL 2 MG CAP PO SCH (19:53)
[2017-09-16] MEDS: BACLOFEN 10 MG TAB PO SCH (19:53)
[2017-09-16] MEDS: METHOCARBAMOL 750 MG TAB PO PRN (19:56)
[2017-09-16] MEDS: DIAZEPAM 5 MG TAB PO PRN (21:44)
[2017-09-17] MEDS: NOREPINEPHRINE/NS 500 ML IV SCH (02:15)
[2017-09-17] MEDS: METHOCARBAMOL 750 MG TAB PO PRN ×2 (05:11→12:31)
[2017-09-17] MEDS: ACETAMINOPHEN 500 MG TAB PO SCH ×3 (05:12→22:16)
[2017-09-17] MEDS: oxyCODONE IR 5 MG TAB PO PRN ×4 (05:12→19:50)
--- NOTE | 2017-09-17 07:30 | NEUSURGPN ---
Assessment/Plan: Assessment: 62 yo M s/p tie in to prior hardware with extension of fusion up to T9, T9-10 laminectomy, interbody cage placement for spinal stenosis and profound leg weakness POD #5 Plan: -continue with pain management -PT/OT ordered -wear TLSO brace when out of bed -Cx - NGTD, gram stain clear (at 72 hrs) -TEDs, SCDs, lovenox started POD#2 -post op xrays show stable hardware -liberalize MAP goals and transfer to floor -appreciate critical care following -call NS with any questions or concerns -Pt seen and d/w Dr Johnson -case management will need to find placement please - working on [facility] inpt rehab Subjective: Pt resting in bed, c/o pain around ribs bilaterally, worse w/ movement Objective: AAOx3 NAD VSS MAEx4 Motor L quad 4/5, L knee flex/ex 3/5, L foot df/pf 4-/5. R quad 3+/5, R knee flex/ex 3/5, R foot df/pf 3+/5 +LT Incision dressed cdi Urinary Catheter in Place: No Catheter Insertion Date: 09/12/17 - Physician Discussed Patient with : Elizabeth Patient Seen by : Elizabeth Neurosurgery Physical Exam - Vitals, I&O, Labs I and O 09/16/17 09/17/17 09/18/17 05:59 05:59 05:59 Intake Total 2165 1820 Output Total 1999 1075 Balance 165 745 Intake: Oral (ml) 900 1600 IV Intake (ml) 319 IV Infused (ml) 946 220 Norepinephrine/Ns 500 ml 946 220 @ Titrate IV CONT FERDINAND Rx# :[id number] Output: Urine (ml) 1999 1075 Urinal 2000 1075 Other: Intake Quantity Yes Sufficient Number of Voids Urinal 2 6 Number of Stools Bedpan 1 Incontinence 1 Microbiology 09/12/17 16:07 Gram Stain - Final Vertebral Disc Vital Signs Temp Pulse Resp BP Pulse Ox 36.4 C 71 12 125/62 H 96 09/16/17 20:00 09/17/17 06:00 09/17/17 06:00 09/17/17 06:00 09/17/17 06:00 Laboratory Results 09/16/17 04:15 09/17/17 05:25 ICD10 Worksheet Patient Problems: Problems Problem Status Onset Leg weakness, bilateral Acute Spinal cord compression Acute Spinal stenosis, thoracic Acute
[2017-09-17] MEDS: ENOXAPARIN 40 MG/0.4 ML SYR SC SCH (09:39)
[2017-09-17] MEDS: FAMOTIDINE 20 MG TAB PO SCH ×2 (09:40→22:17)
[2017-09-17] MEDS: SENNOSIDES/DOCUSATE SODIUM TAB PO SCH ×2 (09:40→22:17)
[2017-09-17] MEDS: PREGABALIN 100 MG CAP PO SCH ×3 (09:40→22:17)
[2017-09-17] MEDS: TERAZOSIN HCL 2 MG CAP PO SCH (22:16)
[2017-09-17] MEDS: ALLOPURINOL 300 MG TAB PO SCH (22:16)
[2017-09-17] MEDS: BACLOFEN 10 MG TAB PO SCH (22:17)
[2017-09-17] MEDS: DIAZEPAM 5 MG TAB PO PRN (22:26)
[2017-09-18] MEDS: oxyCODONE IR 5 MG TAB PO PRN ×4 (04:31→18:29)
[2017-09-18] MEDS: ACETAMINOPHEN 500 MG TAB PO SCH ×3 (06:35→22:05)
[2017-09-18] MEDS: METHOCARBAMOL 750 MG TAB PO PRN ×2 (07:50→15:17)
--- NOTE | 2017-09-18 08:06 | NEUSURGPN ---
Date of Surgery: 18 Post Op Day: 6 Assessment/Plan: Assessment: 62 yo M s/p tie in to prior hardware with extension of fusion up to T9, T9-10 laminectomy, interbody cage placement for spinal stenosis and profound leg weakness POD #6 Plan: -continue with pain management -PT/OT ordered -wear TLSO brace when out of bed -Cx - NGTD, gram stain clear (at 72 hrs) -TEDs, SCDs, lovenox started POD#2 -post op xrays show stable hardware -liberalized MAP goals -appreciate critical care following -call NS with any questions or concerns -Pt seen and d/w Dr Johnson -case management will need to find placement please - working on [facility] inpt rehab Subjective: Awake and alert. NAD. Eating/drinking and voiding. No f/c/n/v/d. Objective: AAOx3 NAD AFVSS GUIDRY x 4 Incision dressed cdi Motor exam: R quad 3+/5, L quad 3/5, R foot df/pf 4-/5, L foot wiggles toes, df/ pf 3+/5 +LT Neuro Check Frequency: per routine Urinary Catheter in Place: No Catheter Insertion Date: 09/12/17 - Physician Discussed Patient with : Elizabeth Neurosurgery Physical Exam - Vitals, I&O, Labs I and O 18 18 18 05:59 05:59 05:59 Intake Total 1820 400 Output Total 1075 1725 225 Balance 745 -1325 -225 Intake: Oral (ml) 1600 400 IV Infused (ml) 220 Norepinephrine/Ns 500 ml 220 @ Titrate IV CONT FERDINAND Rx# :[id number] Output: Urine (ml) 1075 1725 225 Incontinence 425 Urinal 1075 1300 225 Other: Intake Quantity Yes Sufficient Number of Voids Urinal 6 Number of Stools Bedpan 1 Incontinence 1 Microbiology 09/12/17 16:07 Gram Stain - Final Vertebral Disc Vital Signs Temp Pulse Resp BP Pulse Ox 36.5 C 59 L 16 138/77 H 95 09/18/17 07:15 09/18/17 07:15 09/18/17 07:15 09/18/17 07:15 09/18/17 07:15 Laboratory Results 09/16/17 04:15 09/18/17 05:20 ICD10 Worksheet Patient Problems: Problems Problem Status Onset Leg weakness, bilateral Acute Spinal cord compression Acute Spinal stenosis, thoracic Acute
[2017-09-18] MEDS: SENNOSIDES/DOCUSATE SODIUM TAB PO SCH ×2 (09:28→22:04)
[2017-09-18] MEDS: PREGABALIN 100 MG CAP PO SCH ×3 (09:28→22:06)
[2017-09-18] MEDS: ENOXAPARIN 40 MG/0.4 ML SYR SC SCH (09:29)
[2017-09-18] MEDS: FAMOTIDINE 20 MG TAB PO SCH ×2 (09:30→22:06)
--- NOTE | 2017-09-18 14:58 | ASMTCMCOM ---
CM Note CM Note Notes: Pt and [facility] are waiting on [employer] insurance authorization for pt to d/c to [facility] inpatient rehab. CM to follow. Date Signed: 09/18/2017 02:24 PM Electronically Signed By:SHABANA Siu
[2017-09-18] MEDS: TERAZOSIN HCL 2 MG CAP PO SCH (22:06)
[2017-09-18] MEDS: BACLOFEN 10 MG TAB PO SCH (22:06)
[2017-09-18] MEDS: DIAZEPAM 5 MG TAB PO PRN (22:06)
[2017-09-18] MEDS: ALLOPURINOL 300 MG TAB PO SCH (22:06)
[2017-09-19] MEDS: METHOCARBAMOL 750 MG TAB PO PRN ×3 (01:49→14:07)
[2017-09-19] MEDS: oxyCODONE IR 5 MG TAB PO PRN ×4 (04:30→20:18)
[2017-09-19] MEDS: METAXALONE 800 MG TAB PO PRN (06:21)
[2017-09-19] MEDS: ACETAMINOPHEN 500 MG TAB PO SCH ×3 (06:22→21:10)
[2017-09-19] MEDS: SENNOSIDES/DOCUSATE SODIUM TAB PO SCH ×2 (07:50→21:10)
[2017-09-19] MEDS: FAMOTIDINE 20 MG TAB PO SCH ×2 (07:51→21:11)
[2017-09-19] MEDS: PREGABALIN 100 MG CAP PO SCH ×3 (07:51→21:11)
[2017-09-19] MEDS: ENOXAPARIN 40 MG/0.4 ML SYR SC SCH (07:51)
[2017-09-19] MEDS: HYDROmorphONE/DILAUDID 1 MG/ML INJ IVP PRN ×2 (07:53→10:00)
--- NOTE | 2017-09-19 07:54 | NEUSURGPN ---
Assessment/Plan: Assessment: 62 yo M s/p tie in to prior hardware with extension of fusion up to T9, T9-10 laminectomy, interbody cage placement for spinal stenosis and profound leg weakness POD #7 Plan: -continue with pain management -PT/OT ordered -wear TLSO brace when out of bed -Cx - NGTD, gram stain clear -Bowel protocol -TEDs, SCDs, lovenox started POD#2 -post op xrays show stable hardware -continued rib cage pain, will get MRI of the thoracic spine to eval decompression -liberalized MAP goal -call NS with any questions or concerns -Pt seen and d/w Dr Johnson -case management will need to find placement please - working on [facility] inpt rehab Subjective: Pt resting in bed, states pain is better when he is somewhat upright. Was almost able to stand up independently yesterday. Continued radiating pain. Objective: AAOX3 NAD VSS MAEx4 Motor: R quad 3+/5, R knee flex/ex 3+/5, R df/pf 4/5. L quad 3-/5, L knee flex/ ex 3-/5, L df/pf 3/5 Incision dressed cdi +LT Urinary Catheter in Place: No Catheter Insertion Date: 09/12/17 - Physician Discussed Patient with : Elizabeth Patient Seen by : Elizabeth Neurosurgery Physical Exam - Vitals, I&O, Labs I and O 09/18/17 09/19/17 09/20/17 05:59 05:59 05:59 Intake Total 400 100 Output Total 1725 1275 Balance -1325 -1175 Intake: Oral (ml) 400 100 Output: Urine (ml) 1725 1275 Incontinence 425 350 Urinal 1300 925 Other: Intake Quantity Yes Sufficient Number of Voids Incontinence 1 Microbiology 09/12/17 16:07 Gram Stain - Final Vertebral Disc Vital Signs Temp Pulse Resp BP Pulse Ox 36.7 C 63 14 116/74 92 09/19/17 07:17 09/19/17 07:17 09/19/17 07:17 09/19/17 07:17 09/19/17 07:17 Laboratory Results 09/16/17 04:15 09/19/17 00:41 ICD10 Worksheet Patient Problems: Problems Problem Status Onset Leg weakness, bilateral Acute Spinal cord compression Acute Spinal stenosis, thoracic Acute
--- NOTE | 2017-09-19 16:14 | ASMTCMCOM ---
CM Note CM Note Notes: Pt had MRI this morning which did not indicate any required intervention. [employer] insurance authorization not obtained from insurance company until after 14:00 today, this did not provide enough time to obtain appropriate d/c orders and safe transport to [facility] inpatient rehab so pt will likely d/c tomorrow. Pt and were understanding and were happy the insurance authorized [facility] inpatient rehab. CM to follow. Date Signed: 09/19/2017 04:13 PM Electronically Signed By:SHABANA Siu
[2017-09-19] MEDS: BACLOFEN 10 MG TAB PO SCH (21:11)
[2017-09-19] MEDS: TERAZOSIN HCL 2 MG CAP PO SCH (21:11)
[2017-09-19] MEDS: ALLOPURINOL 300 MG TAB PO SCH (21:11)
[2017-09-20 00:12] VITALS: RESP 18
[2017-09-20] MEDS: oxyCODONE IR 5 MG TAB PO PRN ×3 (03:37→12:55)
[2017-09-20] MEDS: METHOCARBAMOL 750 MG TAB PO PRN (03:37)
[2017-09-20] MEDS: ACETAMINOPHEN 500 MG TAB PO SCH (05:37)
[2017-09-20] MEDS: METAXALONE 800 MG TAB PO PRN (05:56)
[2017-09-20] MEDS: HYDROmorphONE/DILAUDID 1 MG/ML INJ IVP PRN (05:56)
[2017-09-20 07:38] VITALS: BP 109/58; PULSE 74; TEMP 98.7; O2SAT 90
[2017-09-20] MEDS: FAMOTIDINE 20 MG TAB PO SCH (08:16)
[2017-09-20] MEDS: SENNOSIDES/DOCUSATE SODIUM TAB PO SCH (08:16)
[2017-09-20] MEDS: ENOXAPARIN 40 MG/0.4 ML SYR SC SCH (08:16)
[2017-09-20] MEDS: PREGABALIN 100 MG CAP PO SCH (08:16)
--- NOTE | 2017-09-20 08:28 | NEUSURGPN ---
Assessment/Plan: Assessment: 62 yo M s/p tie in to prior hardware with extension of fusion up to T9, T9-10 laminectomy, interbody cage placement for spinal stenosis and profound leg weakness POD #8 Plan: -continue with pain management -PT/OT ordered -wear TLSO brace when out of bed -Cx - NGTD, gram stain clear -Bowel protocol -TEDs, SCDs, lovenox started POD#2 -post op xrays show stable hardware -continued rib cage pain, MRI of the thoracic spine reviewed by Dr. Johnson, no concerning findings. Radiologist reports continued stenosis and this is likely related to expected post op fluid collection. -liberalized MAP goal -call NS with any questions or concerns -Pt d/w Dr Johnson -DC to [facility] inpt rehab Subjective: Pt resting in bed, at bedside. Ready to go to rehab today. Objective: AAOx3 NAD VSS MAEx4 Motor: 4-/5 R quad, knee flex/ex, 4/5 df/pf. 3+/5 L quad, knee flex/ex, 4- df/pf Incision cdi surgical glue in place +LT Urinary Catheter in Place: No Catheter Insertion Date: 09/12/17 - Physician Discussed Patient with Dr.: Johnson Neurosurgery Physical Exam - Vitals, I&O, Labs I and O 09/19/1718 18 05:59 05:59 05:59 Intake Total 100 1450 Output Total 1275 900 Balance -1175 550 Intake: Oral (ml) 100 1450 Output: Urine (ml) 1275 900 Incontinence 350 75 Urinal 925 825 Other: Intake Quantity Yes Sufficient Number of Voids Bedpan 1 Incontinence 1 1 Urinal 1 Number of Stools Toilet 1 Microbiology 09/12/17 16:07 Gram Stain - Final Vertebral Disc Vital Signs Temp Pulse Resp BP Pulse Ox 37.1 C 74 18 109/58 L 90 L 09/20/17 07:36 09/20/17 07:36 09/20/17 07:36 09/20/17 07:36 09/20/17 07:36 Laboratory Results 09/16/17 04:15 09/19/17 00:41 ICD10 Worksheet Patient Problems: Problems Problem Status Onset Leg weakness, bilateral Acute Spinal cord compression Acute Spinal stenosis, thoracic Acute
--- NOTE | 2017-09-20 08:31 | PDIAF ---
- Diagnosis Code Status: Full Code - Medication Management Discharge Medications: Medications to Continue on Transfer Acetaminophen [Tylenol ES 500 mg (*)] 1,500 mg PO BID PRN 09/12/17 [Last Taken 09/12/17] Allopurinol [Allopurinol 300 MG (RX)] 300 mg PO HS 09/12/17 [Last Taken 09/11/17 ] Baclofen [Baclofen 10 mg (*)] 10 mg PO HS 09/12/17 [Last Taken 09/11/17] Metaxalone [METAXALONE] 800 mg PO BID PRN 09/12/17 [Last Taken 09/07/17] Pregabalin [Lyrica 100mg (*)] 100 mg PO TID 09/12/17 [Last Taken 09/12/17 08:00] Terazosin HCl [Hytrin 2 MG (*)] 2 mg PO HS 09/12/17 [Last Taken 09/11/17] Enoxaparin [Lovenox 40 MG (*)] 40 mg SC DAILY syr 09/20/17 [Last Taken Unknown] oxyCODONE IR [Oxycodone Ir (*)] 5 - 10 mg PO Q4HRS PRN tab 09/20/17 [Last Taken Unknown] Discharge Medications: Refer to the Discharge Home Medication list for PRN reason. - Orders Services needed: Registered Nurse, Physical Therapy, Occupational Therapy Diet Recommendation: no restrictions on diet Diet Texture: Regular Texture Diet Activity/Weight Bearing Restrictions: 5-10 lb weight limit. wear brace when out of bed. NO bending/lifting/twisting - Follow Up Care Current Providers and Referrals: Alec Xiao MD [Primary Care Provider] - As per Instructions Oj Johnson MD [Medical Doctor] -
--- NOTE | 2017-09-20 11:11 | ASMTCMCOM ---
CM Note CM Note Notes: Pt medically stable for d/c to [facility] inpatient rehab. Orders to be obtained via [employer]. [facility] stretcher transport arranged for 1300 and PCS copy in chart. Date Signed: 09/20/2017 11:10 AM Electronically Signed By:SHABANA Siu
--- NOTE | 2017-09-20 15:57 | ASDISCHSUM ---
Discharge Information Plan Status:Inpatient Rehab Medically Cleared to Leave: Discharge Date:09/20/2017 01:33 PM D/C Disposition:[facility] IP [facility] D/C Disposition:[facility] IP Projected Discharge Date:09/18/2017 11:00 AM Transportation at D/C: Discharge Delay Reason: Follow-Up Date:09/18/2017 11:00 AM Discharge Slot: Final Diagnosis:Thoracic Lami, Fusion for Spinal Stenosis Placement Information [facility] Type:[facility] Referral ID:[id number] Provider Name:[facility] Inpatient [facility] Address 1:[address] Phone Number: Address 2: Fax Number: City:[place] Selection Factors: State:[place] Patient Contact Information Contact Name:LORIE Relationship: Address:[address] City:[place] Alternate Phone: [facility]/Zip Code:[place] [address] Email: Financial Information Financial Class:HMO and PPO Plans Primary Plan Desc:[employer] [facility] Primary Plan Number:[id number] Secondary Plan Desc: OUT OF STATE [facility] Secondary Plan Number:[id number] Assessment Information [facility] Initial CM Assessment Living Arrangements What is your living Answers: With Spouse arrangement? Who do you live with? Type Of Residence What kind of residence do Answers: House you live in? Discharge Plan Comments Coordination Status Comments Notes: Patient is a 62 yo male who was admitted for bilateral leg weakness resulting from severe spinal stenosis and cord compression with some cord signal changes. Patient will need surgical intervention. OT/PT have been ordered. D/C needs TBD. CM will follow. Date Signed: 09/13/2017 10:06 AM Electronically Signed By:Ashley Wen LCSW [facility] CM Progress Note CM Note CM Note Notes: Spoke to patient and his [place]. They are very interested in Acute Rehab. He has [employer] which has been reluctant in the past to pay for Acute Rehab. He reports in the past being at [facility] and [facility]. He has also been at [facility] [address] and didn't receive the rehab promised. This CM sent referrals to [place], [facility] and [facility]. Patient and chose [facility]-they were informed and will work on ins auth. Date Signed: 09/16/2017 04:10 PM Electronically Signed By:Jane Mosley LCSW [facility] CM Progress Note CM Note CM Note Notes: Pt and [facility] are waiting on [employer] insurance authorization for pt to d/c to [facility] inpatient rehab. CM to follow. Date Signed: 09/18/2017 02:24 PM Electronically Signed By:SHABANA Siu [facility] CM Progress Note CM Note CM Note Notes: Pt had MRI this morning which did not indicate any required intervention. [employer] insurance authorization not obtained from insurance company until after 14:00 today, this did not provide enough time to obtain appropriate d/c orders and safe transport to [facility] inpatient rehab so pt will likely d/c tomorrow. Pt and were understanding and were happy the insurance authorized [facility] inpatient rehab. CM to follow. Date Signed: 09/19/2017 04:13 PM Electronically Signed By:SHABANA Siu [facility] CM Progress Note CM Note CM Note Notes: Pt medically stable for d/c to [facility] inpatient rehab. Orders to be obtained via [facility]. [facility] stretcher transport arranged for 1300 and [facility]CS copy in chart. Date Signed: 09/20/2017 11:10 AM Electronically Signed By:SHABANA Siu Intervention Information
== END 2017-09-20 13:33 | DRG 453 ==
LOC: F2N 18:15 → F3N 09-17 11:31
PROVIDERS: ADMIT Neurological Surgery; ATTEND Neurological Surgery
PROC: 0RP604Z Removal of Internal Fixation Device from Thoracic Vertebral Joint, Open Approach (ICD-10-PCS; principal; 2017-09-12 13:00)
PROC: 8E0WXBF Computer Assisted Procedure of Trunk Region, With Fluoroscopy (ICD-10-PCS; principal; 2017-09-12 13:00)
PROC: 0RG60AJ Fusion of Thoracic Vertebral Joint with Interbody Fusion Device, Posterior Approach, Anterior Column, Open Approach (ICD-10-PCS; principal; 2017-09-12 13:00)
PROC: 0RB90ZZ Excision of Thoracic Vertebral Disc, Open Approach (ICD-10-PCS; principal; 2017-09-12 13:00)
PROC: 4A1004G Monitoring of Central Nervous Electrical Activity, Intraoperative, Open Approach (ICD-10-PCS; principal; 2017-09-12 13:00)
PROC: 00NX0ZZ Release Thoracic Spinal Cord, Open Approach (ICD-10-PCS; principal; 2017-09-12 13:00)
PROC: 0RG6071 Fusion of Thoracic Vertebral Joint with Autologous Tissue Substitute, Posterior Approach, Posterior Column, Open Approach (ICD-10-PCS; principal; 2017-09-12 13:00)
PROC: 02HV33Z Insertion of Infusion Device into Superior Vena Cava, Percutaneous Approach (ICD-10-PCS; 2017-09-12 13:00)
DX: M48.04 Spinal stenosis, thoracic region (principal); G82.54 Quadriplegia, C5-C7 incomplete; S14.109S Unspecified injury at unspecified level of cervical spinal cord, sequela; Z98.1 Arthrodesis status
CPT/HCPCS: 96374; 97110-GP; 97162-GP; 97166-GO; 97530-GO; 97530-GP; 97535-GO; C1713; C1751; J0171; J0330; J0690; J1170; J1200; J1650; J2060; J2704; J2997; J3010; J3475; J3480

== ENCOUNTER 2017-09-17 11:39 | Inpatient (IN) | payer OTHER, BC ==
[2017-09-20] MEDS ORDERED: METAXALONE 800 MG TAB PO PRN (15:22)
[2017-09-20] MEDS ORDERED: MAGNESIUM HYDROXIDE 30 ML UDCUP PO PRN (15:39)
[2017-09-20] MEDS ORDERED: SENNOSIDES 17.6 MG/10 ML UDL PO PRN (15:39)
[2017-09-20] MEDS ORDERED: BISACODYL 10 MG SUPP PR PRN (15:39)
--- NOTE | 2017-09-20 15:55 | PDOREHIP ---
Admission IRF-[facility] - Admission - 3 Day Assessment Period Admission Date/Day 1: 09/20/17 Day 2: 09/21/17 Day 3: 09/22/17 - Skin Conditions # Stage 1 Pressure Ulcers-Admission: 0 # Stage 2 Pressure Ulcers-Admission: 0 # Stage 3 Pressure Ulcers-Admission: 0 # Stage 4 Pressure Ulcers-Admission: 0 # Unstageable Pressure Ulcers (Non-remove Dress)-Admission: 0 # Unstageable Pressure Ulcers (Slough/Eschar)-Admission: 0 # Unstageable Pressure Ulcers (Deep Tissue Injury)-Admission: 0
[2017-09-20] MEDS: ACETAMINOPHEN 500 MG TAB PO PRN (16:41)
[2017-09-20] MEDS: oxyCODONE IR 5 MG TAB PO PRN (16:44)
[2017-09-20] MEDS ORDERED: PREGABALIN 50 MG CAP PO ONE (17:00)
[2017-09-20] MEDS: PREGABALIN 100 MG CAP PO SCH ×2 (17:07→20:41)
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
[2017-09-20] MEDS ORDERED: METHOCARBAMOL 500 MG TAB ONE (18:20)
[2017-09-20] MEDS: METHOCARBAMOL 500 MG TAB PO SCH ×2 (18:26→20:40)
[2017-09-20] MEDS: ALLOPURINOL 300 MG TAB PO SCH (20:40)
[2017-09-20] MEDS: BACLOFEN 10 MG TAB PO SCH (20:40)
[2017-09-20] MEDS: TERAZOSIN HCL 2 MG CAP PO SCH (20:42)
[2017-09-20] MEDS ORDERED: METHOCARBAMOL 750 MG TAB PO SCH (22:00)
[2017-09-21] MEDS: oxyCODONE IR 5 MG TAB PO PRN ×5 (01:42→21:52)
[2017-09-21] MEDS: ACETAMINOPHEN 500 MG TAB PO PRN (06:38)
[2017-09-21 07:13] LABS: PLATELET COUNT 293 10^3/uL (150-400)
[2017-09-21] MEDS: METHOCARBAMOL 500 MG TAB PO SCH ×3 (08:48→18:25)
[2017-09-21] MEDS: ENOXAPARIN 40 MG/0.4 ML SYR SC SCH (08:48)
[2017-09-21] MEDS: PREGABALIN 100 MG CAP PO SCH ×3 (08:48→20:40)
[2017-09-21] MEDS ORDERED: ENOXAPARIN 40 MG/0.4 ML SYR SC SCH (09:00)
--- NOTE | 2017-09-21 10:10 | SOAPPROG ---
SOAP Progress Note Assessment/Plan: Assessment: 1. Bilateral lower extremity weakness, more pronounced on the left, with current less than antigravity strength of the right and left hip flexors, quadriceps and hamstrings. According to both the patient and his , who was present today during today's rounds, this is consistent with his immediate post surgery lower extremity strength.. PT and OT to maximize mobility and gait. Maximize activities of daily living. 2. Gout. Continue allopurinol 300 mg p.o. q.h.s. 3. Spasticity. Continue Baclofen 10 mg p.o. q.h.s for now. By his description , he may have a little bit of increased spasticity at night, however on today's exam no findings of velocity dependent spasticity and no ankle clonus. If nighttime spasticity continues to be bothersome then we may want to increase his nighttime dose of baclofen to 20 mg. Discontinue. Metaxalone 800 mg and begin Robaxin 500 mg q.6 hours. The patient also advised to apply ice 20 minutes 2-3 times per day to lower back for lower back spasms. 4. Neuropathic pain. Continue Lyrica 100 mg p.o. t.i.d. 5. Benign prostatic hypertrophy. Continue Hytrin 2 mg p.o. q.h.s. The patient has a history of frequent nighttime urination and, therefore, the dose of Hytrin may need to be titrated up. 6. DVT prophylaxis. Lovenox 40 mg subcu daily. SCDs to be worn at night. 7. Pain management. Oxycodone IR 5-10 mg; 5 mg pain level of 4/7, 10 mg pain level 8/10. 8. Spine precautions. The patient will wear [place] brace while out of bed, however discussed this with his occupational therapist who informs that he was previously showering without the [place] brace therefore will write order for him to shower without do it brace. Spine precautions are no repetitive bending , stooping, pushing, pulling, twisting or lifting. A lifting limitation of 5 pounds. 9. Left olecranon bursitis. The patient was instructed to apply ice 20 minutes several times per day. His was instructed to go to a sporting goods store and purchase elbow pads for protection. 10. Left rotator cuff tendonitis/subacromial bursitis. Physical therapy to work on rotator cuff strengthening exercises and strengthening of secondary scapular stabilizers, along with pendulum exercises. The patient may benefit from a short course of nonsteroid antiinflammatories to address subacromial bursitis/rotator cuff tendinitis. Plan: 09/21/17 09:56 09/21/17 10:14 Subjective: He is complaining of muscle spasms around the anterior and abdominal region which began after the surgery. He does not report significant parathoracic or para lumbar spasms. He does describe what sounds like intermittent lower extremity spasticity at night when he changes position while lying in bed. He does not describe ankle clonus or increased spasticity during transfers or ambulation prior to surgery. Objective: Vital Signs Temp Pulse Resp BP Pulse Ox 36.7 C 65 18 121/69 H 92 09/21/17 07:49 09/21/17 07:49 09/21/17 07:49 09/21/17 07:49 09/21/17 07:49 Laboratory Results 09/21/17 06:00 09/21/17 06:00 09/20/17 09/21/17 09/22/17 05:59 05:59 05:59 Intake Total 940 Output Total 500 Balance 440 Physical Exam - Physical Exam General Appearance: WD/WN, alert, no apparent distress (Appears comfortable seated in wheelchair) Respiratory: lungs clear Cardiac/Chest: No edema Abdomen: non-tender, distended Skin: other (Normal tone of the para thoracic and paralumbar muscles) Neuro/Psych: motor weakness (1/5 right and left hip flexors while seated, 2-/5 right and left quadriceps and hamstrings) ICD10 Worksheet Patient Problems: Problems Problem Status Onset Leg weakness, bilateral Acute Spinal cord compression Acute Spinal stenosis, thoracic Acute
[2017-09-21] MEDS: POLYETHYLENE GLYCOL 3350 17 GM PKT PO SCH (10:55)
[2017-09-21] MEDS: HYDROCORTISONE 0.5% CREAM TP SCH ×2 (13:01→21:53)
[2017-09-21] MEDS: BACLOFEN 10 MG TAB PO SCH (20:40)
[2017-09-21] MEDS: ALLOPURINOL 300 MG TAB PO SCH (20:40)
[2017-09-21] MEDS: TERAZOSIN HCL 2 MG CAP PO SCH (20:40)
[2017-09-22] MEDS: METHOCARBAMOL 500 MG TAB PO SCH ×4 (00:13→18:32)
[2017-09-22] MEDS: oxyCODONE IR 5 MG TAB PO PRN ×5 (02:04→21:08)
[2017-09-22] MEDS: PREGABALIN 100 MG CAP PO SCH ×3 (05:52→21:03)
[2017-09-22] MEDS: ACETAMINOPHEN 500 MG TAB PO PRN (06:45)
[2017-09-22] MEDS: ENOXAPARIN 40 MG/0.4 ML SYR SC SCH (08:23)
[2017-09-22] MEDS: POLYETHYLENE GLYCOL 3350 17 GM PKT PO SCH (08:23)
[2017-09-22] MEDS: HYDROCORTISONE 0.5% CREAM TP SCH ×2 (08:24→21:03)
--- NOTE | 2017-09-22 12:24 | SOAPPROG ---
SOAP Progress Note Assessment/Plan: Assessment: 1. Bilateral lower extremity weakness, more pronounced on the left, with current less than antigravity strength of the right and left hip flexors, quadriceps and hamstrings. According to both the patient and his , who was present today during today's rounds, this is consistent with his immediate post surgery lower extremity strength.. PT and OT to maximize mobility and gait. Maximize activities of daily living. 2. Gout. Continue allopurinol 300 mg p.o. q.h.s. 3. Spasticity. Continue Baclofen 10 mg p.o. q.h.s for now. By his description , he may have a little bit of increased spasticity at night, however on today's exam no findings of velocity dependent spasticity and no ankle clonus. If nighttime spasticity continues to be bothersome then we may want to increase his nighttime dose of baclofen to 20 mg. ROBAXIN INCREASED TO 500 FOUR TIMES DAILY YESTERDAY AND PATIENT REPORTS SIGNIFICANTLY LESS BACK PAIN AT NIGHT. The patient also advised to apply ice 20 minutes 2-3 times per day to lower back for lower back spasms. 4. Neuropathic pain. Continue Lyrica 100 mg p.o. t.i.d. 5. Benign prostatic hypertrophy. Continue Hytrin 2 mg p.o. q.h.s. The patient has a history of frequent nighttime urination and, therefore, the dose of Hytrin may need to be titrated up. 6. DVT prophylaxis. Lovenox 40 mg subcu daily. SCDs to be worn at night. 7. Pain management. Oxycodone IR 5-10 mg; 5 mg pain level of 4/7, 10 mg pain level 8/10. I HAVE ASKED NURSING TO REMIND HIM TO ASK FOR ICE PACKS TO APPLY TO THE PARATHORACIC REGION 20 MIN NEEDED FOR INCREASED MUSCLE SPASMS. 8. Spine precautions. The patient will wear Balaji brace while out of bed, however discussed this with his occupational therapist who informs that he was previously showering without the Bal[place] brace therefore will write order for him to shower without do it brace. Spine precautions are no repetitive bending , stooping, pushing, pulling, twisting or lifting. A lifting limitation of 5 pounds. 9. Left olecranon bursitis. AGAIN REMINDED NURSES TO CUE PATIENT to apply ice 20 minutes several times per day. HIS HAS PURCHASED ELBOW PADS WHICH HE WILL WEAR 24 HR PER DAY EXCEPT FOR WHILE IN SHOWER 10. Left rotator cuff tendonitis/subacromial bursitis. Physical therapy to work on rotator cuff strengthening exercises and strengthening of secondary scapular stabilizers, along with pendulum exercises. The patient may benefit from a short course of nonsteroid antiinflammatories to address subacromial bursitis/rotator cuff tendinitis. Plan: 09/21/17 09:56 09/21/17 10:14 09/22/17 12:22 Subjective: HE REPORTS SIGNIFICANTLY LESS BACK PAIN SINCE THE ROBAXIN WAS INCREASED TO 500 FOUR TIMES DAILY. Objective: Vital Signs Temp Pulse Resp BP Pulse Ox 36.8 C 60 16 114/71 93 09/22/17 05:57 09/22/17 05:57 09/22/17 05:57 09/22/17 05:57 09/22/17 05:57 Laboratory Results 09/21/17 06:00 09/21/17 06:00 09/21/17 09/22/17 09/23/17 05:59 05:59 05:59 Intake Total 940 1040 480 Output Total 500 1090 300 Balance 440 -50 180 Physical Exam - Physical Exam General Appearance: WD/WN, alert, no apparent distress Respiratory: chest non-tender, lungs clear Cardiac/Chest: No edema Abdomen: non-tender, soft Skin: other (LEFT ELBOW SLIGHTLY ERYTHEMATOUS OVER OLECRANON PROCESS. LEFT ELBOW) Neuro/Psych: motor weakness ICD10 Worksheet Patient Problems: Problems Problem Status Onset Leg weakness, bilateral Acute Spinal cord compression Acute Spinal stenosis, thoracic Acute
[2017-09-22] MEDS: BACLOFEN 10 MG TAB PO SCH (21:03)
[2017-09-22] MEDS: TERAZOSIN HCL 2 MG CAP PO SCH (21:03)
[2017-09-22] MEDS: ALLOPURINOL 300 MG TAB PO SCH (21:03)
[2017-09-23] MEDS: METHOCARBAMOL 500 MG TAB PO SCH ×5 (00:36→23:21)
[2017-09-23] MEDS: oxyCODONE IR 5 MG TAB PO PRN ×3 (04:33→15:39)
[2017-09-23] MEDS: PREGABALIN 100 MG CAP PO SCH ×3 (05:58→20:51)
[2017-09-23] MEDS: POLYETHYLENE GLYCOL 3350 17 GM PKT PO SCH ×2 (09:02→13:50)
[2017-09-23] MEDS: ENOXAPARIN 40 MG/0.4 ML SYR SC SCH (09:02)
[2017-09-23] MEDS: HYDROCORTISONE 0.5% CREAM TP SCH ×2 (09:04→23:22)
[2017-09-23] MEDS: DOCUSATE SODIUM 100 MG CAP PO SCH ×2 (16:24→20:50)
--- NOTE | 2017-09-23 17:27 | SOAPPROG ---
SORONNIE Progress Note Assessment/Plan: Assessment: 1. Bilateral lower extremity weakness, more pronounced on the left, with current less than antigravity strength of the right and left hip flexors, quadriceps and hamstrings. According to both the patient and his , who was present today during today's rounds, this is consistent with his immediate post surgery lower extremity strength.. PT and OT to maximize mobility and gait. Maximize activities of daily living. 2. Gout. Continue allopurinol 300 mg p.o. q.h.s. 3. Spasticity. Continue Baclofen 10 mg p.o. q.h.s for now. By his description , he may have a little bit of increased spasticity at night, however on today's exam no findings of velocity dependent spasticity and no ankle clonus. If nighttime spasticity continues to be bothersome then we may want to increase his nighttime dose of baclofen to 20 mg. ROBAXIN 500 FOUR TIMES [place]YSTAL. The patient also advised to apply ice 20 minutes 2-3 times per day to lower back for lower back spasms. 4. Neuropathic pain. Continue Lyrica 100 mg p.o. t.i.d. 5. Benign prostatic hypertrophy. Continue Hytrin 2 mg p.o. q.h.s. The patient has a history of frequent nighttime urination and, therefore, the dose of Hytrin may need to be titrated up. 6. DVT prophylaxis. Lovenox 40 mg subcu daily. SCDs to be worn at night. 7. Pain management. Oxycodone IR 5-10 mg; 5 mg pain level of 4/7, 10 mg pain level 8/10. HE HAS BEEN COMPLAINING OF INADEQUATE PAIN CONTROL AND HAS BEEN TAKING OXYCODONE EVERY 4 HR ON A FAIRLY REGULAR SCHEDULE. THEREFORE WILL BEGIN OXYCONTIN 10 MG 6:00 A.M. AND 6:00 P.M.. 8. Spine precautions. The patient will wear [place] brace while out of bed, however discussed this with his occupational therapist who informs that he was previously showering without the [place] brace therefore will write order for him to shower without do it brace. Spine precautions are no repetitive bending , stooping, pushing, pulling, twisting or lifting. A lifting limitation of 5 pounds. 9. Left olecranon bursitis. AGAIN REMINDED NURSES TO CUE PATIENT to apply ice 20 minutes several times per day. HIS HAS PURCHASED ELBOW PADS WHICH HE WILL WEAR 24 HR PER DAY EXCEPT FOR WHILE IN SHOWER 10. Left rotator cuff tendonitis/subacromial bursitis. Physical therapy to work on rotator cuff strengthening exercises and strengthening of secondary scapular stabilizers, along with pendulum exercises. The patient may benefit from a short course of nonsteroid antiinflammatories to address subacromial bursitis/rotator cuff tendinitis. 11. BOWEL PROGRAM-BY HIS REPORTS HE HAS ABOUT 2 BOWEL MOVEMENTS PER WEEK. NURSING REPORTS THAT HE IS SAID THAT HE TENDS NOT TO TAKE ANYTHING, HOWEVER HIS TOLD ME THAT HE TAKES A STOOL SOFTENER EACH WEEK. HE HAS BEEN REFUSING HIS BOWEL MEDICATIONS BECAUSE HE HAS BEEN UPSET OF HAVING FAIRLY LOOSE BOWELS AND IS AFRAID OF HAVING BOWEL INCONTINENCE. I ORDERED DOCUSATE 100 TWICE DAILY AND I WILL ALSO ORDER BENAFIBER TO HELP BULK UP HIS STOOLS. Plan: 09/21/17 09:56 09/21/17 10:14 09/22/17 12:22 09/23/17 17:28 Subjective: HE REPORTS HE IS STILL HAVING QUITE A BIT OF PAIN. HE DESCRIBES MOST OF HIS PAIN IS IN THE RIGHT PARATHORACIC REGION WITH RADIATION INTO THE RIGHT UPPER AND LOWER ABDOMINAL REGION. NURSING REPORTS THAT HE HAS BEEN TAKING OXYCODONE 5 MG EVERY 4 HR ON A FAIRLY REGULAR BASIS. HE ALSO HAS REPORTED TO NURSING THAT HE HAS BEEN ITCHING ON HIS CHEST AND TRUNK. HE HAS BEEN REFUSING BOWEL MEDICATIONS. HE HAS INDICATED THAT HIS USUAL BOWEL REGIMEN IS 2 BOWEL MOVEMENTS PER WEEK AND HE OCCASIONALLY TAKES A STOOL SOFTENER. HE HAS EXPRESSED THAT HE IS UPSET BECAUSE HIS BOWELS HAVE BEEN TOO LOOSE AND HE IS ANXIOUS OVER HAVING BOWEL INCONTINENCE. Objective: Vital Signs Temp Pulse Resp BP Pulse Ox 36.5 C 72 16 107/59 L 93 09/23/17 06:55 09/23/17 06:55 09/23/17 06:55 09/23/17 06:55 09/23/17 06:55 Laboratory Results 09/21/17 06:00 09/21/17 06:00 09/22/17 09/23/17 09/24/17 05:59 05:59 05:59 Intake Total 1040 1480 660 Output Total 1090 950 250 Balance -50 530 410 Physical Exam - Physical Exam General Appearance: alert Respiratory: lungs clear Cardiac/Chest: No edema Abdomen: non-tender, distended Skin: other (LUMBAR INCISION WITHOUT ERYTHEMA OR DRAINAGE) Neuro/Psych: alert, oriented x 3, motor weakness (NO CHANGE IN LOWER EXTREMITY MOTOR EXAM) ICD10 Worksheet Patient Problems: Problems Problem Status Onset Leg weakness, bilateral Acute Spinal cord compression Acute Spinal stenosis, thoracic Acute
[2017-09-23] MEDS: TERAZOSIN HCL 2 MG CAP PO SCH (20:50)
[2017-09-23] MEDS: BACLOFEN 10 MG TAB PO SCH (20:51)
[2017-09-23] MEDS: ALLOPURINOL 300 MG TAB PO SCH (20:51)
[2017-09-24] MEDS: oxyCODONE IR 5 MG TAB PO PRN ×4 (04:40→23:49)
[2017-09-24] MEDS: METHOCARBAMOL 500 MG TAB PO SCH ×4 (05:30→23:49)
[2017-09-24] MEDS ORDERED: PREGABALIN 50 MG CAP PO ONE (06:00)
[2017-09-24] MEDS: ENOXAPARIN 40 MG/0.4 ML SYR SC SCH (08:55)
[2017-09-24] MEDS: DOCUSATE SODIUM 100 MG CAP PO SCH ×2 (08:55→20:37)
[2017-09-24] MEDS: HYDROCORTISONE 0.5% CREAM TP SCH ×2 (08:57→20:38)
[2017-09-24] MEDS: MAG HYDROX/AL HYDROX/SIMETH 30 ML UDCUP PO PRN (09:09)
[2017-09-24] MEDS: POLYETHYLENE GLYCOL 3350 17 GM PKT PO SCH (09:46)
[2017-09-24] MEDS: PREGABALIN 100 MG CAP PO SCH ×2 (11:09→20:38)
[2017-09-24] MEDS ORDERED: POLYETHYLENE GLYCOL 3350 17 GM PKT PO PRN (11:25)
[2017-09-24 12:11] LABS: PLATELET COUNT 410 10^3/uL (150-400)
--- NOTE | 2017-09-24 12:20 | SOAPPROG ---
LAVERNE Progress Note Assessment/Plan: 62-year-old male with premorbid symptomatic cervical spinal cord injury from 30 years ago now with acute on chronic thoracic level spinal cord injury with lower limb weakness, neurogenic bowel and bladder superimposed on prior symptoms for his cervical level injury. Today's update: A total of 45 min was spent on the floor in the care of the patient, the majority of which was spent counseling and coordination of care regarding chronic spinal cord related issues including spasticity, neurogenic bowel and neurogenic bladder. All medical issues are new to this provider. Patient was treated in the for cervical level spinal cord injury at [facility]. Acute thoracic level spinal cord injury on chronic cervical level spinal cord injury with bilateral lower extremity weakness, more pronounced on the left, with current less than antigravity strength of the right and left hip flexors, quadriceps and hamstrings. Longstanding neurogenic bowel and bladder, incompletely controlled. Notably, he did have more weakness on the left leg premorbidly. * PT and OT to maximize mobility and gait. Maximize activities of daily living. * Monitor postoperatively Spinal cord injury related issues: Neurogenic bowel: Reports a history of incontinence every 3 months or so, premorbid bowel movement once or twice a week. Goal will be to get on a regularly scheduled bowel program * Daily bisacodyl suppository * Bowel medications to promote mobility and titrate to consistency * Work with nursing and occupational therapy to locate a suppository general duty nurse given his decreased hand function * Plan for KUB later in the week when clinically he appears to be cleared of stool * Ongoing upper motor neuron neurogenic bowel education * Follow-up with the rehabilitation physician for ongoing management * Monitor closely Neurogenic bladder: Reports a history of needing to urinate frequently, has bouts of incontinence. Has not had renal ultrasounds in the past. No knowledge of prior urodynamic studies. At high risk of high-pressure bladder. * Check postvoid residuals x3 * Education regarding neurogenic bladder * Outpatient evaluation with renal ultrasound * Follow-up with rehabilitation physician for long-term management * Follow-up with a urologist for possible urodynamic studies * Okay to continue terazosin as prescribed for BPH below, though as also described below he may not have BPH but rather just a history of neurogenic bladder. * Monitor closely Spasticity: Related to spinal cord injury, present in the upper limbs but no spasticity appreciated in the lower limbs at this point. this discrepancy is likely because of his new acute injury. * Continue Baclofen 10 mg p.o. q.h.s for now. * Consider increasing dose of baclofen if upper limb spasticity is problematic and as long as it is not interfering with lower limb strength * Monitor closely as he has a complex neurological status and his past distal likely evolve in an atypical fashion Neuropathic pain: Premorbid * Continue Lyrica 100 mg p.o. t.i.d. * Monitor Other medical issues: Gout: Appears to have a new gout flare of the right ring finger. Steroids and nonsteroidal anti-inflammatories are relatively contraindicated given his recent surgery. Patient has not tried colchicine in the past but is willing to. Uric acid 4.8 during the flare, and he states that in the past it has also been low during flares. On the clinical diagnostic tool, it is likely a gout flare. Normal liver and renal function. * Plan to prescribe colchicine 0.6 mg p.o. 3 times a day for the 1st day, may complicate his neurogenic bowel program because it could cause diarrhea. * Goal would be to continue colchicine at 0.6 mg daily or twice a day as tolerated for the duration of the flare if not resolved in 24 hr. * Continue allopurinol 300 mg p.o. q.h.s. * Monitor closely for improvement and consider differential diagnosis if no improvement Benign prostatic hypertrophy. Unclear if this is actually just neurogenic bladder or if he actually did have BPH. * Regardless of the etiology, continue terazosin 2 mg p.o. q.h.s. DVT prophylaxis. * Lovenox 40 mg subcutaneous daily, to continue while he is in inpatient regardless of mobility status. * SCDs to be worn at night. Pain management. This appears to be mostly acute pain related to the surgery. Goal to get pain under control so that he can participate in therapies. Opioid use may complicate his neurogenic bowel program. * Oxycodone 10 mg p.o. Twice daily, long-acting * Oxycodone 5-10 mg q.4 hours p.r.n. For breakthrough pain, short-acting * The patient also advised to apply ice 20 minutes 2-3 times per day to lower back for lower back spasms. * Changed acetaminophen dose to 1000 mg p.o. Twice daily, checking liver function tests as he stated that he would typically take up to 2000 mg single dose twice a day and sometimes for breakthrough. Advised patient to not take more than 1000 mg at a time, and take less than 3000 mg per day. Spine precautions. * The patient will wear [place] brace while out of bed, except when showering. * Spine precautions are no repetitive bending, stooping, pushing, pulling, twisting or lifting. A lifting limitation of 5 pounds. Left olecranon bursitis. * Apply ice 20 minutes several times per day. * Elbow pads to use except for when showering Left rotator cuff tendonitis/subacromial bursitis. Nonsteroidal anti- inflammatories are relatively contraindicated given his recent spine surgery. * Physical therapy to work on rotator cuff strengthening exercises and strengthening of secondary scapular stabilizers, along with pendulum exercises. Follow-up: Patient will need to follow up with physiatry for ongoing management of chronic spinal cord injury issues including neurogenic bowel, neurogenic bladder, renal ultrasound and renal function monitoring, this could be Dr. Ruelas or at [facility] per his preference. He was treated at [facility] 30 years ago for his spinal cord injury. He will also need follow up with a urologist and possibly need urodynamic studies. Follow up with surgery as well. 09/24/17 12:15 09/24/17 12:20 09/24/17 12:26 09/24/17 12:46 Subjective: Complaint: Acute on chronic spinal cord related issues No acute events overnight. Patient endorses no shortness of breath or chest pain, no new numbness, tingling, or weakness. The patient relates a history of cervical spinal cord injury in the 1980s and was treated for tetraplegia at [facility]. He has not seen by physiatry since that time except for a [facility] for acute pain issues. He endorses some bowel incontinence every 3 months or so and notes that it might be 3 or 4 days or more before he has bowel movements. He has inconsistent bowel movements when he does have them in his sometimes incontinent. He also has some bladder incontinence at times but does not quantify further. He states that these bouts of incontinence limit his activities. He has no history of a recent renal ultrasound or none that he can remember in the past. He also does not recall having urodynamic studies. He has no history of renal problems. He also endorsed taking acetaminophen 1500 mg to 2000 mg twice a day. He has done this for years. He also endorsed that in regards to bowel management, he found suppositories effective at times but has difficulty placing the because of his reduced hand function. He has not used a suppository tool in the past. He also states that his acute pain is not well controlled after surgery on the new regimen. Also notified by staff that he had new swelling of his right ring finger that he thinks is consistent with a gout flare. He has a history of gout and typically gets gout flares in the feet but can have them on other joints as well. No proximal joints, he has not had a flare for a while. Last time he had surgery he also had a flare. He has not tried colchicine but has tried nonsteroidal anti-inflammatories such as indomethacin the past which have been helpful. He has not tried steroids that he recalls. Objective: Vital Signs Temp Pulse Resp BP Pulse Ox 36.6 C 68 16 115/62 95 09/24/17 08:00 09/24/17 08:00 09/24/17 08:00 09/24/17 08:00 09/24/17 08:00 Laboratory Results 09/24/17 11:45 09/23/17 09/24/17 09/25/17 05:59 05:59 05:59 Intake Total 1480 1570 358 Output Total 950 1400 200 Balance 530 170 158 Physical Exam - Physical Exam General Appearance: WD/WN, alert, mild distress (Back pain related), other ( Wearing a back brace) EENT: No scleral icterus (R), No scleral icterus (L) Respiratory: No respiratory distress, No accessory muscle use Cardiac/Chest: normal peripheral pulses, regular rate, rhythm, No edema Abdomen: distended Skin: normal color, warm/dry, No cyanosis, No diaphoresis Extremities: swelling (Right ring finger, also with some erythema, minimal tenderness to palpation but does have pain with movement. Also has some warmth) , No normal range of motion, No normal inspection Neuro/Psych: alert, normal mood/affect, oriented x 3, motor weakness (Weakness in the bilateral upper and lower limbs, worse on the left than the right. Not quantified in detail today.), other (Spasticity is 1+ in the left-sided finger flexors, 1 in the right-sided finger flexors on the modified Arcenio scale. No clonus or spasticity in the bilateral lower limbs.) ICD10 Worksheet Patient Problems: Problems Problem Status Onset Leg weakness, bilateral Acute Spinal cord compression Acute Spinal stenosis, thoracic Acute
[2017-09-24] MEDS: COLCHICINE 0.6 MG CAP/TAB PO SCH ×2 (13:48→21:38)
[2017-09-24] MEDS: TERAZOSIN HCL 2 MG CAP PO SCH (20:37)
[2017-09-24] MEDS: SENNOSIDES 1 TAB PO SCH (20:37)
[2017-09-24] MEDS: BACLOFEN 10 MG TAB PO SCH (20:37)
[2017-09-24] MEDS: ALLOPURINOL 300 MG TAB PO SCH (20:38)
[2017-09-25] MEDS: PREGABALIN 100 MG CAP PO SCH ×3 (05:27→21:31)
[2017-09-25] MEDS: METHOCARBAMOL 500 MG TAB PO SCH ×4 (05:28→23:42)
[2017-09-25] MEDS ORDERED: BISACODYL 10 MG SUPP PR SCH (09:00)
[2017-09-25] MEDS: oxyCODONE IR 5 MG TAB PO PRN ×3 (09:27→19:09)
[2017-09-25] MEDS: ENOXAPARIN 40 MG/0.4 ML SYR SC SCH (09:28)
[2017-09-25] MEDS: DOCUSATE SODIUM 100 MG CAP PO SCH (09:33)
[2017-09-25] MEDS: SENNOSIDES 1 TAB PO SCH (09:33)
[2017-09-25] MEDS: HYDROCORTISONE 0.5% CREAM TP SCH ×2 (09:33→23:42)
[2017-09-25] MEDS ORDERED: COLCHICINE 0.6 MG CAP/TAB PO PRN (15:13)
[2017-09-25] MEDS ORDERED: SENNOSIDES 1 TAB PO PRN (15:15)
--- NOTE | 2017-09-25 15:21 | SOAPPROG ---
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 Acute thoracic level spinal cord injury on chronic cervical level spinal cord injury with bilateral lower extremity weakness, more pronounced on the left, with current less than antigravity strength of the right and left hip flexors, quadriceps and hamstrings. Longstanding neurogenic bowel and bladder, incompletely controlled. Notably, he did have more weakness on the left leg premorbidly. * PT and OT to maximize mobility and gait. Maximize activities of daily living. Assist of 2 for sliding board transfer as of 09/25/2017. * Monitor postoperatively Spinal cord injury related issues: Neurogenic bowel: Reports a history of incontinence every 3 months or so, premorbid bowel movement once or twice a week. Goal will be to get on a regularly scheduled bowel program * Daily bisacodyl suppository. He has been refusing; will change to p.r.n.. Suggest using after dinner. * Will consider stimulant and/or osmotic laxatives if no bowel movement with suppositories. * Work with nursing and occupational therapy to locate a suppository heavy equipment engine mechanic given his decreased hand function * Plan for KUB later in the week when clinically he appears to be cleared of stool * Ongoing upper motor neuron neurogenic bowel education * Monitor closely Neurogenic bladder: Reports a history of needing to urinate frequently, has bouts of incontinence. Has not had renal ultrasounds in the past. No knowledge of prior urodynamic studies. At high risk of high-pressure bladder. * Postvoid residuals 29 - 130 cc. No indication for catheterization. * Education regarding neurogenic bladder * Recommendo utpatient evaluation with renal ultrasound * Follow-up with rehabilitation physician for long-term management * Follow-up with a urologist for possible urodynamic studies * Okay to continue terazosin as prescribed for BPH below, though as also described below he may not have BPH but rather just a history of neurogenic bladder. * Monitor closely Spasticity: Related to spinal cord injury, present in the upper limbs but no spasticity appreciated in the lower limbs at this point. this discrepancy is likely because of his new acute injury. * Continue Baclofen 10 mg p.o. q.h.s for now. * Consider increasing dose of baclofen if upper limb spasticity is problematic and as long as it is not interfering with lower limb strength * Monitor closely as he has a complex neurological status and his past distal likely evolve in an atypical fashion Neuropathic pain: Premorbid * Continue Lyrica 100 mg p.o. t.i.d. * Monitor Other medical issues: Gout: Appears to have a new gout flare of the right ring finger. Steroids and nonsteroidal anti-inflammatories are relatively contraindicated given his recent surgery. Patient has not tried colchicine in the past but is willing to. Uric acid 4.8 during the flare, and he states that in the past it has also been low during flares. On the clinical diagnostic tool, it is likely a gout flare. Normal liver and renal function. * Improved after 2 doses of colchicine 0.6 mg on 09/24/2017. * Continue colchicine 0.6 mg twice daily p.r.n. Until gout flare resolves. * Continue allopurinol 300 mg p.o. q.h.s. Benign prostatic hypertrophy. Unclear if this is actually just neurogenic bladder or if he actually did have BPH. * Regardless of the etiology, continue terazosin 2 mg p.o. q.h.s. DVT prophylaxis. * Lovenox 40 mg subcutaneous daily, to continue while he is in inpatient regardless of mobility status. * SCDs to be worn at night. Pain management. This appears to be mostly acute pain related to the surgery. Goal to get pain under control so that he can participate in therapies. Opioid use may complicate his neurogenic bowel program. * Oxycodone 10 mg p.o. Twice daily, long-acting * Oxycodone 5-10 mg q.4 hours p.r.n. For breakthrough pain, short-acting * The patient also advised to apply ice 20 minutes 2-3 times per day to lower back for lower back spasms. * Changed acetaminophen dose to 1000 mg p.o. Twice daily, checking liver function tests as he stated that he would typically take up to 2000 mg single dose twice a day and sometimes for breakthrough. Advised patient to not take more than 1000 mg at a time, and take less than 3000 mg per day. Spine precautions. * The patient will wear [place] brace while out of bed, except when showering. * Spine precautions are no repetitive bending, stooping, pushing, pulling, twisting or lifting. A lifting limitation of 5 pounds. Left olecranon bursitis. * Apply ice 20 minutes several times per day. * Elbow pads to use except for when showering Left rotator cuff tendonitis/subacromial bursitis. Nonsteroidal anti- inflammatories are relatively contraindicated given his recent spine surgery. * Physical therapy to work on rotator cuff strengthening exercises and strengthening of secondary scapular stabilizers, along with pendulum exercises. Follow-up: Patient will need to follow up with physiatry for ongoing management of chronic spinal cord injury issues including neurogenic bowel, neurogenic bladder, renal ultrasound and renal function monitoring, this could be Dr. Ruelas or at [facility] per his preference. He was treated at [facility] 30 years ago for his spinal cord injury. He will also need follow up with a urologist and possibly need urodynamic studies. Follow up with surgery as well scheduled for 10/04/2017.. Tentative discharge home with family 10/14/2017. Home OT and PT. 09/25/17 15:21 Subjective: No complaints. Pain is adequately controlled. Gout pain on 3rd finger right hand is improved. He has been refusing laxatives and suppository out of concern that he will need to spend time on the toilet rather than in therapy. Discussed possibility of using suppository after dinner when there is no therapy scheduled. Objective: Vital Signs Temp Pulse Resp BP Pulse Ox 36.9 C 93 18 99/69 L 95 09/25/17 08:00 09/25/17 08:00 09/25/17 08:00 09/25/17 08:00 09/25/17 08:00 Laboratory Results 09/24/17 11:45 09/24/17 11:45 09/24/17 09/25/17 09/26/17 05:59 05:59 05:59 Intake Total 1570 998 Output Total 1400 1225 250 Balance 170 -227 -250 Physical Exam - Physical Exam General Appearance: WD/WN, alert, no apparent distress Respiratory: normal breath sounds, No crackles, No rhonchi, No wheezing Cardiac/Chest: regular rate, rhythm, No edema, No diastolic murmur, No systolic murmur Abdomen: normal bowel sounds, non-tender, soft, No distended Skin: normal color, warm/dry Neuro/Psych: alert, normal mood/affect, oriented x 3, motor weakness (Needs assist for bed mobility. Lacks sufficient arm strength to roll on side independently. Legs without antigravity strength.) ICD10 Worksheet Patient Problems: Problems Problem Status Onset Leg weakness, bilateral Acute Spinal cord compression Acute Spinal stenosis, thoracic Acute
[2017-09-25] MEDS: BACLOFEN 10 MG TAB PO SCH (21:31)
[2017-09-25] MEDS: TERAZOSIN HCL 2 MG CAP PO SCH (21:31)
[2017-09-25] MEDS: ALLOPURINOL 300 MG TAB PO SCH (21:31)
[2017-09-26] MEDS: oxyCODONE IR 5 MG TAB PO PRN ×4 (02:31→21:01)
[2017-09-26] MEDS: METHOCARBAMOL 500 MG TAB PO SCH ×4 (06:01→23:23)
[2017-09-26] MEDS: PREGABALIN 100 MG CAP PO SCH ×3 (06:02→21:01)
[2017-09-26] MEDS: ENOXAPARIN 40 MG/0.4 ML SYR SC SCH (09:11)
[2017-09-26] MEDS: HYDROCORTISONE 0.5% CREAM TP SCH (09:11)
--- NOTE | 2017-09-26 10:35 | SOAPPROG ---
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 Today's update: Per patient preference, goal will be to do bowel program nightly to avoid incontinent episodes during the day. Patient endorses having AFOs that he will bring in. He has had difficulty getting them on and off in the past because of his decreased hand function. A suppository qc manager has not been located, discussed with Sissy from occupational therapy who will look into this today with the patient. Also, he is having some discomfort that he feels may be associated with the fit of the brace, nursing will contact Pressing Department Supervisor for possible fit adjustment. A total of 35 min was spent on the floor in the care of the patient, the majority of which was spent counseling coordination of care regarding AFO fit, equipment procurement, and bowel management strategies Acute thoracic level spinal cord injury on chronic cervical level spinal cord injury with bilateral lower extremity weakness, more pronounced on the left, with current less than antigravity strength of the right and left hip flexors, quadriceps and hamstrings. Longstanding neurogenic bowel and bladder, incompletely controlled. Notably, he did have more weakness on the left leg premorbidly. * PT and OT to maximize mobility and gait. Maximize activities of daily living. Assist of 2 for sliding board transfer as of 09/25/2017. * Monitor postoperatively Spinal cord injury related issues: Neurogenic bowel: Reports a history of incontinence every 3 months or so, premorbid bowel movement once or twice a week. Goal will be to get on a regularly scheduled bowel program * Daily bisacodyl suppository. He has been refusing; will change to p.r.n.. Suggest using after dinner. * Will consider stimulant and/or osmotic laxatives if no bowel movement with suppositories. * Work with nursing and occupational therapy to locate a suppository qc manager given his decreased hand function * Plan for KUB later in the week when clinically he appears to be cleared of stool * Ongoing upper motor neuron neurogenic bowel education * Monitor closely Neurogenic bladder: Reports a history of needing to urinate frequently, has bouts of incontinence. Has not had renal ultrasounds in the past. No knowledge of prior urodynamic studies. At high risk of high-pressure bladder. * Postvoid residuals 29 - 130 cc. * Education regarding neurogenic bladder * Recommend outpatient evaluation with renal ultrasound * Follow-up with rehabilitation physician for long-term management * Follow-up with a urologist for possible urodynamic studies * Okay to continue terazosin as prescribed for BPH below, though as also described below he may not have BPH but rather just a history of neurogenic bladder. * Monitor closely Spasticity: Related to spinal cord injury, present in the upper limbs but no spasticity appreciated in the lower limbs at this point. this discrepancy is likely because of his new acute injury. * Continue Baclofen 10 mg p.o. q.h.s for now. * Consider increasing dose of baclofen if upper limb spasticity is problematic and as long as it is not interfering with lower limb strength * Monitor closely as he has a complex neurological status and his past distal likely evolve in an atypical fashion Neuropathic pain: Premorbid * Continue Lyrica 100 mg p.o. t.i.d. * Monitor Other medical issues: Gout: Appears to have a new gout flare of the right ring finger. Steroids and nonsteroidal anti-inflammatories are relatively contraindicated given his recent surgery. Patient has not tried colchicine in the past but is willing to. Uric acid 4.8 during the flare, and he states that in the past it has also been low during flares. On the clinical diagnostic tool, it is likely a gout flare. Normal liver and renal function. * Improved after 2 doses of colchicine 0.6 mg on 09/24/2017. * Continue colchicine 0.6 mg twice daily p.r.n. Until gout flare resolves. * Continue allopurinol 300 mg p.o. q.h.s. Benign prostatic hypertrophy. Unclear if this is actually just neurogenic bladder or if he actually did have BPH. * Regardless of the etiology, continue terazosin 2 mg p.o. q.h.s. DVT prophylaxis. * Lovenox 40 mg subcutaneous daily, to continue while he is in inpatient regardless of mobility status. * SCDs to be worn at night. Pain management. This appears to be mostly acute pain related to the surgery. Goal to get pain under control so that he can participate in therapies. Opioid use may complicate his neurogenic bowel program. * Oxycodone 10 mg p.o. Twice daily, long-acting * Oxycodone 5-10 mg q.4 hours p.r.n. For breakthrough pain, short-acting * The patient also advised to apply ice 20 minutes 2-3 times per day to lower back for lower back spasms. * Changed acetaminophen dose to 1000 mg p.o. Twice daily, checking liver function tests as he stated that he would typically take up to 2000 mg single dose twice a day and sometimes for breakthrough. Advised patient to not take more than 1000 mg at a time, and take less than 3000 mg per day. Spine precautions. * The patient will wear [place] brace while out of bed, except when showering. * Spine precautions are no repetitive bending, stooping, pushing, pulling, twisting or lifting. A lifting limitation of 5 pounds. Left olecranon bursitis. * Apply ice 20 minutes several times per day. * Elbow pads to use except for when showering Left rotator cuff tendonitis/subacromial bursitis. Nonsteroidal anti- inflammatories are relatively contraindicated given his recent spine surgery. * Physical therapy to work on rotator cuff strengthening exercises and strengthening of secondary scapular stabilizers, along with pendulum exercises. Follow-up: Patient will need to follow up with physiatry for ongoing management of chronic spinal cord injury issues including neurogenic bowel, neurogenic bladder, renal ultrasound and renal function monitoring, this could be Dr. Ruelas or at [facility] per his preference. He was treated at [facility] 30 years ago for his spinal cord injury. He will also need follow up with a urologist and possibly need urodynamic studies. Follow up with surgery as well scheduled for 10/04/2017.. Tentative discharge home with family 10/14/2017. Home OT and PT. 09/24/17 12:15 09/24/17 12:20 09/24/17 12:26 09/24/17 12:46 09/26/17 10:32 Subjective: Chief complaint: Neurogenic bowel management No acute events overnight. Patient denies any new shortness of breath or chest pain, no new numbness, tingling, or weakness. Patient does endorse some back discomfort that he associates with the brace made by Michael. Patient also has a secondary brace that he says was cleared by Neurosurgery to use after his surgery. Unclear where this is documented. Patient also notes that he had bilateral AFOs of unclear type and he will bring them in to trial in therapies now. A support reinsert her has not been located yet. Discussed this with occupational therapy will be working on this issue today. Patient was refusing suppositories and bowel program, electing to do them at night starting tonight. Objective: Vital Signs Temp Pulse Resp BP Pulse Ox 36.6 C 89 14 120/71 94 09/26/17 06:29 09/26/17 06:29 09/26/17 06:29 09/26/17 06:29 09/26/17 06:29 Laboratory Results 09/24/17 11:45 09/24/17 11:45 09/25/17 09/26/17 09/27/17 05:59 05:59 05:59 Intake Total 1498 1290 150 Output Total 1225 1108 Balance 273 182 150 ICD10 Worksheet Patient Problems: Problems Problem Status Onset Leg weakness, bilateral Acute Spinal cord compression Acute Spinal stenosis, thoracic Acute
[2017-09-26] MEDS: ACETAMINOPHEN 500 MG TAB PO PRN (12:49)
[2017-09-26] MEDS: BISACODYL 10 MG SUPP PR PRN (16:02)
[2017-09-26] MEDS: ALLOPURINOL 300 MG TAB PO SCH (21:01)
[2017-09-26] MEDS: TERAZOSIN HCL 2 MG CAP PO SCH (21:01)
[2017-09-26] MEDS: BACLOFEN 10 MG TAB PO SCH (21:01)
[2017-09-27] MEDS: METHOCARBAMOL 500 MG TAB PO SCH ×4 (05:45→23:42)
[2017-09-27] MEDS: oxyCODONE IR 5 MG TAB PO PRN ×3 (05:46→17:53)
[2017-09-27] MEDS: PREGABALIN 100 MG CAP PO SCH ×3 (05:46→21:02)
[2017-09-27] MEDS: ENOXAPARIN 40 MG/0.4 ML SYR SC SCH (09:29)
--- NOTE | 2017-09-27 12:29 | SOAPPROG ---
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 Acute thoracic level spinal cord injury with chronic cervical level spinal cord injury with bilateral lower extremity weakness, more pronounced on the left, with current less than antigravity strength of the right and left hip flexors, quadriceps and hamstrings. Longstanding neurogenic bowel and bladder, incompletely controlled. Notably, he did have more weakness on the left leg premorbidly. * PT and OT to maximize mobility and gait. Maximize activities of daily living. Moderate assist for sliding board transfer as of 09/26/2017. Working on standing in parallel bars. Upper body dressing is independent, lower body dressing requires maximal assist. * Monitor postoperatively Spinal cord injury related issues: Neurogenic bowel: Reports a history of incontinence every 3 months or so, premorbid bowel movement once or twice a week. Goal will be to get on a regularly scheduled bowel program * Daily bisacodyl suppository. He has been refusing; will change to p.r.n.. Suggested using after dinner and had good results yesterday 09/26/2017.. * Will consider stimulant and/or osmotic laxatives if no bowel movement with suppositories. * Work with nursing and occupational therapy to locate a suppository sales account director given his decreased hand function * Plan for KUB later in the week if clinically he appears to be constipated. * Ongoing upper motor neuron neurogenic bowel education * Monitor closely Neurogenic bladder: Reports a history of needing to urinate frequently, has bouts of incontinence. Has not had renal ultrasounds in the past. No knowledge of prior urodynamic studies. At high risk of high-pressure bladder. * Postvoid residuals 29 - 130 cc. No indication for catheterization. * Increase terazosin from 2 mg to 4 mg at HS starting 09/27/2017. Monitor for improvement in nocturia; symptoms may be due to neurogenic bladder rather than BPH.. * Education regarding neurogenic bladder * Recommend outpatient evaluation with renal ultrasound * Follow-up with rehabilitation physician for long-term management * Follow-up with a urologist for possible urodynamic studies * Monitor closely Spasticity: Related to spinal cord injury, present in the upper limbs but no spasticity appreciated in the lower limbs at this point. this discrepancy is likely because of his new acute injury. * Continue Baclofen 10 mg p.o. q.h.s for now. * Consider increasing dose of baclofen if upper limb spasticity is problematic and as long as it is not interfering with lower limb strength * Monitor closely as he has a complex neurological status and his past distal likely evolve in an atypical fashion Neuropathic pain: Premorbid * Continue Lyrica 100 mg p.o. t.i.d. * Monitor Other medical issues: Gout: Appears to have a new gout flare of the right ring finger. Steroids and nonsteroidal anti-inflammatories are relatively contraindicated given his recent surgery. Patient has not tried colchicine in the past but is willing to. Uric acid 4.8 during the flare, and he states that in the past it has also been low during flares. On the clinical diagnostic tool, it is likely a gout flare. Normal liver and renal function. * Improved after 2 doses of colchicine 0.6 mg on 09/24/2017. * Continue colchicine 0.6 mg twice daily p.r.n. Until gout flare resolves. * Continue allopurinol 300 mg p.o. q.h.s. DVT prophylaxis. * Lovenox 40 mg subcutaneous daily, to continue while he is in inpatient regardless of mobility status. * SCDs to be worn at night. Pain management. This appears to be mostly acute pain related to the surgery. Goal to get pain under control so that he can participate in therapies. Opioid use may complicate his neurogenic bowel program. * Oxycodone 10 mg p.o. Twice daily, long-acting * Oxycodone 5-10 mg q.4 hours p.r.n. For breakthrough pain, short-acting * The patient also advised to apply ice 20 minutes 2-3 times per day to lower back for lower back spasms. * Changed acetaminophen dose to 1000 mg p.o. Twice daily, checking liver function tests as he stated that he would typically take up to 2000 mg single dose twice a day and sometimes for breakthrough. Advised patient to not take more than 1000 mg at a time, and take less than 3000 mg per day. Spine precautions. * The patient will wear [place] brace while out of bed, except when showering. * Spine precautions are no repetitive bending, stooping, pushing, pulling, twisting or lifting. A lifting limitation of 5 pounds. Left olecranon bursitis. * Apply ice 20 minutes several times per day. * Elbow pads to use except for when showering Left rotator cuff tendonitis/subacromial bursitis. Nonsteroidal anti- inflammatories are relatively contraindicated given his recent spine surgery. * Physical therapy to work on rotator cuff strengthening exercises and strengthening of secondary scapular stabilizers, along with pendulum exercises. Follow-up: Patient will need to follow up with physiatry for ongoing management of chronic spinal cord injury issues including neurogenic bowel, neurogenic bladder, renal ultrasound and renal function monitoring, this could be Dr. Ruelas or at [facility] per his preference. He was treated at [facility] 30 years ago for his spinal cord injury. He will also need follow up with a urologist and possibly need urodynamic studies. Follow up with surgery as well scheduled for 10/04/2017.. Tentative discharge home with family 10/14/2017. Home OT and PT. 09/27/17 12:29 Subjective: No complaints. Reports sleep is interrupted by nocturia approximately 3 times through the night. Has pain but it is adequately controlled with his current pain medication. No fevers or chills, no cough or dyspnea. Objective: Vital Signs Temp Pulse Resp BP Pulse Ox 36.5 C 73 15 106/68 97 09/27/17 08:00 09/27/17 08:00 09/27/17 08:00 09/27/17 08:00 09/27/17 08:00 Laboratory Results 09/24/17 11:45 09/24/17 11:45 09/26/17 09/27/17 09/28/17 05:59 05:59 05:59 Intake Total 1290 750 594 Output Total 1233 905 150 Balance 57 -155 444 Physical Exam - Physical Exam General Appearance: WD/WN, alert, no apparent distress Respiratory: No respiratory distress, No accessory muscle use Skin: normal color, warm/dry Neuro/Psych: alert, normal mood/affect, oriented x 3 ICD10 Worksheet Patient Problems: Problems Problem Status Onset Leg weakness, bilateral Acute Spinal cord compression Acute Spinal stenosis, thoracic Acute
[2017-09-27] MEDS: ALLOPURINOL 300 MG TAB PO SCH (21:03)
[2017-09-27] MEDS: BACLOFEN 10 MG TAB PO SCH (21:03)
[2017-09-27] MEDS: TERAZOSIN HCL 2 MG CAP PO SCH (21:03)
[2017-09-28] MEDS: oxyCODONE IR 5 MG TAB PO PRN ×4 (03:32→19:20)
[2017-09-28] MEDS: PREGABALIN 100 MG CAP PO SCH ×3 (06:34→20:56)
[2017-09-28] MEDS: METHOCARBAMOL 500 MG TAB PO SCH ×3 (06:34→17:22)
[2017-09-28] MEDS: ENOXAPARIN 40 MG/0.4 ML SYR SC SCH (08:35)
--- NOTE | 2017-09-28 10:18 | SOAPPROG ---
LAVERNE Progress Note Assessment/Plan: A/P: 62-year-old male with premorbid symptomatic cervical spinal cord injury from 30 years ago now with acute on chronic thoracic level spinal cord injury with lower limb weakness, neurogenic bowel and bladder superimposed on prior symptoms for his cervical level injury. Acute thoracic level spinal cord injury with chronic cervical level spinal cord injury with bilateral lower extremity weakness, more pronounced on the left, with current less than antigravity strength of the right and left hip flexors, quadriceps and hamstrings. Longstanding neurogenic bowel and bladder, incompletely controlled. Notably, he did have more weakness on the left leg premorbidly. * PT and OT to maximize mobility and gait. Maximize activities of daily living. Moderate assist for sliding board transfer as of 09/26/2017. Working on standing in parallel bars. Upper body dressing is independent, lower body dressing requires maximal assist. * Monitor postoperatively Spinal cord injury related issues: Neurogenic bowel: Reports a history of incontinence every 3 months or so, premorbid bowel movement once or twice a week. Goal will be to get on a regularly scheduled bowel program * Daily bisacodyl suppository. He has been refusing; will change to p.r.n.. Suggested using after dinner and had good results yesterday 09/26/2017.. * Will consider stimulant and/or osmotic laxatives if no bowel movement with suppositories. * Work with nursing and occupational therapy to locate a suppository director state pharmacy given his decreased hand function * Plan for KUB later in the week if clinically he appears to be constipated. * Ongoing upper motor neuron neurogenic bowel education * Monitor closely Neurogenic bladder: Reports a history of needing to urinate frequently, has bouts of incontinence. Has not had renal ultrasounds in the past. No knowledge of prior urodynamic studies. At high risk of high-pressure bladder. * Postvoid residuals 29 - 130 cc. No indication for catheterization. * Increase terazosin from 2 mg to 4 mg at HS starting 09/27/2017. Monitor for improvement in nocturia; symptoms may be due to neurogenic bladder rather than BPH.. * Education regarding neurogenic bladder * Recommend outpatient evaluation with renal ultrasound * Follow-up with rehabilitation physician for long-term management * Follow-up with a urologist for possible urodynamic studies * Monitor closely Spasticity: Related to spinal cord injury, present in the upper limbs but no spasticity appreciated in the lower limbs at this point. this discrepancy is likely because of his new acute injury. * Continue Baclofen 10 mg p.o. q.h.s for now. * Consider increasing dose of baclofen if upper limb spasticity is problematic and as long as it is not interfering with lower limb strength * Monitor closely as he has a complex neurological status and his past distal likely evolve in an atypical fashion Neuropathic pain: Premorbid * Continue Lyrica 100 mg p.o. t.i.d. * Monitor Other medical issues: Gout: Appears to have a new gout flare of the right ring finger. Steroids and nonsteroidal anti-inflammatories are relatively contraindicated given his recent surgery. Patient has not tried colchicine in the past but is willing to. Uric acid 4.8 during the flare, and he states that in the past it has also been low during flares. On the clinical diagnostic tool, it is likely a gout flare. Normal liver and renal function. * Improved after 2 doses of colchicine 0.6 mg on 09/24/2017. * Continue colchicine 0.6 mg twice daily p.r.n. Until gout flare resolves. * Continue allopurinol 300 mg p.o. q.h.s. DVT prophylaxis. * Lovenox 40 mg subcutaneous daily, to continue while he is in inpatient regardless of mobility status. * SCDs to be worn at night. Pain management. This appears to be mostly acute pain related to the surgery. Goal to get pain under control so that he can participate in therapies. Opioid use may complicate his neurogenic bowel program. * Oxycodone 10 mg p.o. Twice daily, long-acting * Oxycodone 5-10 mg q.4 hours p.r.n. For breakthrough pain, short-acting * The patient also advised to apply ice 20 minutes 2-3 times per day to lower back for lower back spasms. * Changed acetaminophen dose to 1000 mg p.o. Twice daily, checking liver function tests as he stated that he would typically take up to 2000 mg single dose twice a day and sometimes for breakthrough. Advised patient to not take more than 1000 mg at a time, and take less than 3000 mg per day. Spine precautions. * The patient will wear [place] brace while out of bed, except when showering. * Spine precautions are no repetitive bending, stooping, pushing, pulling, twisting or lifting. A lifting limitation of 5 pounds. Left olecranon bursitis. * Apply ice 20 minutes several times per day. * Elbow pads to use except for when showering Left rotator cuff tendonitis/subacromial bursitis. Nonsteroidal anti- inflammatories are relatively contraindicated given his recent spine surgery. * Physical therapy to work on rotator cuff strengthening exercises and strengthening of secondary scapular stabilizers, along with pendulum exercises. Follow-up: Patient will need to follow up with physiatry for ongoing management of chronic spinal cord injury issues including neurogenic bowel, neurogenic bladder, renal ultrasound and renal function monitoring, this could be Dr. Ruelas or at [facility] per his preference. He was treated at [facility] 30 years ago for his spinal cord injury. He will also need follow up with a urologist and possibly need urodynamic studies. Follow up with surgery as well scheduled for 10/04/2017.. Tentative discharge home with family 10/14/2017. Home OT and PT. Today's Plan: Pt reporting that he understands the utility of more frequent and consistent use of suppository at least in this acute phase. We have also talked about the importance of good urinary output to decrease chance for UTI. Pt reports he knows he will need good f/u and that plans on trying to make time once he is d/c 'd so he can continue making good progress. For today - pain is adequately managed 09/28/17 10:15 Subjective: No new fevers/chills, cp, sob. Last BM was on 09/26 - plans on using the suppository today. Struggling a bit with urination - only able to complete when he is lying down. Review with RN - Talked with patient about additional bladder management- would like to continue with the same for now. 09/25 Void 300 - PVR 120 09/25 Void 150 - PVR 153 09/24 Void 150- PVR 29 09/24 Void 125 - PVR 97 Objective: Vital Signs Temp Pulse Resp BP Pulse Ox 36.7 C 94 16 101/69 90 L 09/28/17 08:00 09/28/17 08:00 09/28/17 08:00 09/28/17 08:00 09/28/17 08:00 Laboratory Results 09/24/17 11:45 09/24/17 11:45 0209/28/17 09/29/17 05:59 05:59 05:59 Intake Total 750 794 480 Output Total 909 285 100 Balance -155 -181 380 Physical Exam - Physical Exam General Appearance: alert, no apparent distress Respiratory: normal breath sounds Cardiac/Chest: regular rate, rhythm Abdomen: normal bowel sounds, non-tender Neuro/Psych: alert, normal mood/affect ICD10 Worksheet Patient Problems: Problems Problem Status Onset Leg weakness, bilateral Acute Spinal cord compression Acute Spinal stenosis, thoracic Acute
[2017-09-28] MEDS: BISACODYL 10 MG SUPP PR PRN (17:22)
[2017-09-28] MEDS: BACLOFEN 10 MG TAB PO SCH (20:56)
[2017-09-28] MEDS: TERAZOSIN HCL 2 MG CAP PO SCH (20:56)
[2017-09-28] MEDS: ALLOPURINOL 300 MG TAB PO SCH (20:56)
[2017-09-29] MEDS: METHOCARBAMOL 500 MG TAB PO SCH ×5 (00:05→23:47)
[2017-09-29] MEDS: PREGABALIN 100 MG CAP PO SCH ×3 (05:34→20:47)
[2017-09-29] MEDS: oxyCODONE IR 5 MG TAB PO PRN ×3 (06:58→17:54)
[2017-09-29] MEDS: ENOXAPARIN 40 MG/0.4 ML SYR SC SCH (08:27)
--- NOTE | 2017-09-29 10:19 | SOAPPROG ---
LAVERNE Progress Note Assessment/Plan: A/P: 62-year-old male with premorbid symptomatic cervical spinal cord injury from 30 years ago now with acute on chronic thoracic level spinal cord injury with lower limb weakness, neurogenic bowel and bladder superimposed on prior symptoms for his cervical level injury. Acute thoracic level spinal cord injury with chronic cervical level spinal cord injury with bilateral lower extremity weakness, more pronounced on the left, with current less than antigravity strength of the right and left hip flexors, quadriceps and hamstrings. Longstanding neurogenic bowel and bladder, incompletely controlled. Notably, he did have more weakness on the left leg premorbidly. * PT and OT to maximize mobility and gait. Maximize activities of daily living. Moderate assist for sliding board transfer as of 09/26/2017. Working on standing in parallel bars. Upper body dressing is independent, lower body dressing requires maximal assist. * Monitor postoperatively Spinal cord injury related issues: Neurogenic bowel: Reports a history of incontinence every 3 months or so, premorbid bowel movement once or twice a week. Goal will be to get on a regularly scheduled bowel program * Daily bisacodyl suppository. He has been refusing; will change to p.r.n.. Suggested using after dinner and had good results yesterday 09/26/2017.. * Will consider stimulant and/or osmotic laxatives if no bowel movement with suppositories. * Work with nursing and occupational therapy to locate a suppository telecommunications analyst given his decreased hand function * Plan for KUB later in the week if clinically he appears to be constipated. * Ongoing upper motor neuron neurogenic bowel education * Monitor closely Neurogenic bladder: Reports a history of needing to urinate frequently, has bouts of incontinence. Has not had renal ultrasounds in the past. No knowledge of prior urodynamic studies. At high risk of high-pressure bladder. * Postvoid residuals 29 - 130 cc. No indication for catheterization. * Increase terazosin from 2 mg to 4 mg at HS starting 09/27/2017. Monitor for improvement in nocturia; symptoms may be due to neurogenic bladder rather than BPH.. * Education regarding neurogenic bladder * Recommend outpatient evaluation with renal ultrasound * Follow-up with rehabilitation physician for long-term management * Follow-up with a urologist for possible urodynamic studies * Monitor closely Spasticity: Related to spinal cord injury, present in the upper limbs but no spasticity appreciated in the lower limbs at this point. this discrepancy is likely because of his new acute injury. * Continue Baclofen 10 mg p.o. q.h.s for now. * Consider increasing dose of baclofen if upper limb spasticity is problematic and as long as it is not interfering with lower limb strength * Monitor closely as he has a complex neurological status and his past distal likely evolve in an atypical fashion Neuropathic pain: Premorbid * Continue Lyrica 100 mg p.o. t.i.d. * Monitor Other medical issues: Gout: Appears to have a new gout flare of the right ring finger. Steroids and nonsteroidal anti-inflammatories are relatively contraindicated given his recent surgery. Patient has not tried colchicine in the past but is willing to. Uric acid 4.8 during the flare, and he states that in the past it has also been low during flares. On the clinical diagnostic tool, it is likely a gout flare. Normal liver and renal function. * Improved after 2 doses of colchicine 0.6 mg on 09/24/2017. * Continue colchicine 0.6 mg twice daily p.r.n. Until gout flare resolves. * Continue allopurinol 300 mg p.o. q.h.s. DVT prophylaxis. * Lovenox 40 mg subcutaneous daily, to continue while he is in inpatient regardless of mobility status. * SCDs to be worn at night. Pain management. This appears to be mostly acute pain related to the surgery. Goal to get pain under control so that he can participate in therapies. Opioid use may complicate his neurogenic bowel program. * Oxycodone 10 mg p.o. Twice daily, long-acting * Oxycodone 5-10 mg q.4 hours p.r.n. For breakthrough pain, short-acting * The patient also advised to apply ice 20 minutes 2-3 times per day to lower back for lower back spasms. * Changed acetaminophen dose to 1000 mg p.o. Twice daily, checking liver function tests as he stated that he would typically take up to 2000 mg single dose twice a day and sometimes for breakthrough. Advised patient to not take more than 1000 mg at a time, and take less than 3000 mg per day. Spine precautions. * The patient will wear [place] brace while out of bed, except when showering. * Spine precautions are no repetitive bending, stooping, pushing, pulling, twisting or lifting. A lifting limitation of 5 pounds. Left olecranon bursitis. * Apply ice 20 minutes several times per day. * Elbow pads to use except for when showering Left rotator cuff tendonitis/subacromial bursitis. Nonsteroidal anti- inflammatories are relatively contraindicated given his recent spine surgery. * Physical therapy to work on rotator cuff strengthening exercises and strengthening of secondary scapular stabilizers, along with pendulum exercises. Follow-up: Patient will need to follow up with physiatry for ongoing management of chronic spinal cord injury issues including neurogenic bowel, neurogenic bladder, renal ultrasound and renal function monitoring, this could be Dr. Ruelas or at [facility] per his preference. He was treated at [facility] 30 years ago for his spinal cord injury. He will also need follow up with a urologist and possibly need urodynamic studies. Follow up with surgery as well scheduled for 10/04/2017.. Tentative discharge home with family 10/14/2017. Home OT and PT. Today's Plan: Had another good BM last night with the suppository -continue current BOP plan to provide ongoing consistency. Was able to void yesterday well after the initial difficulties in the morning. Offered a condom cath overnight to help with sleep given wakes up to urinate - pt deferring at this time. Some pain along his back - will add lidoderm patch- may want to ask surgeon regarding adding naproxen. 09/29/17 10:13 Subjective: Doing well today - some pain over the middle of the back - feels muscles to patient. Did have another good bowel output last night with the suppository. Overall doing well without new concerns. Objective: Vital Signs Temp Pulse Resp BP Pulse Ox 36.6 C 67 17 108/49 L 94 09/29/17 07:35 09/29/17 07:35 09/29/17 07:35 09/29/17 07:35 09/29/17 07:35 Laboratory Results 09/24/17 11:45 09/24/17 11:45 09/28/17 09/29/17 09/30/17 05:59 05:59 05:59 Intake Total 794 840 476 Output Total 969 4147 225 Balance -181 -605 251 Physical Exam - Physical Exam General Appearance: alert, no apparent distress Respiratory: lungs clear Cardiac/Chest: regular rate, rhythm Abdomen: non-tender, soft Back: Other (well healed midline incision - minimal puffiness around the top of the incision but no erythema /warmth or other infectious concerns. Pain to palpation but in the perispinal muscles area) Neuro/Psych: alert, normal mood/affect ICD10 Worksheet Patient Problems: Problems Problem Status Onset Leg weakness, bilateral Acute Spinal cord compression Acute Spinal stenosis, thoracic Acute
[2017-09-29] MEDS: LIDOCAINE 4%/MENTHOL 1% PATCH TD SCH (10:56)
[2017-09-29] MEDS: BACLOFEN 10 MG TAB PO SCH (20:47)
[2017-09-29] MEDS: TERAZOSIN HCL 2 MG CAP PO SCH (20:47)
[2017-09-29] MEDS: ALLOPURINOL 300 MG TAB PO SCH (20:49)
[2017-09-30] MEDS: PATCH REMOVAL 1 EA PATCH TD SCH ×2 (00:51→20:55)
[2017-09-30] MEDS: oxyCODONE IR 5 MG TAB PO PRN ×4 (04:57→19:39)
[2017-09-30] MEDS: PREGABALIN 100 MG CAP PO SCH ×3 (05:00→20:51)
[2017-09-30] MEDS: METHOCARBAMOL 500 MG TAB PO SCH ×4 (05:01→23:30)
[2017-09-30] MEDS: ENOXAPARIN 40 MG/0.4 ML SYR SC SCH (09:14)
[2017-09-30] MEDS: LIDOCAINE 4%/MENTHOL 1% PATCH TD SCH (09:15)
--- NOTE | 2017-09-30 13:48 | SOAPPROG ---
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 Acute T9-T10 spinal cord injury due to spinal stenosis, status post T9-10 laminectomy and fusion on 09/12/2009, with chronic cervical level spinal cord injury with bilateral lower extremity weakness, more pronounced on the left, with current less than antigravity strength of the right and left hip flexors, quadriceps and hamstrings. Longstanding neurogenic bowel and bladder, incompletely controlled. Notably, he did have more weakness on the left leg premorbidly. * Initial functional independence measure 64 on 09/23/2017. Improved to 77 as of 09/30/2017. Needs assistance with bed mobility to get his legs in and assistance for trunk weakness to get out of bed. He stands with 2 person assist in the parallel bars and can ambulate just a few feet. 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 Independent with upper body dressing. Minimal assist to hike is pants while doing lower body dressing seated. Needs assistance for AFO and shoes. * Continue PT and OT to maximize mobility and gait. Spinal cord injury related issues: Neurogenic bowel: Reports a history of incontinence every 3 months or so, premorbid bowel movement once or twice a week. Goal will be to get on a regularly scheduled bowel program * Using bisacodyl suppository every other day after dinner with good result. * Consider stimulant and/or osmotic laxatives if no bowel movement with suppositories. * Work with nursing and occupational therapy to locate a suppository locks tender given his decreased hand function * Ongoing upper motor neuron neurogenic bowel education * Monitor closely Neurogenic bladder:? Reports a history of needing to urinate frequently, has bouts of incontinence. Has not had renal ultrasounds in the past. No knowledge of prior urodynamic studies. At high risk of high-pressure bladder. * Postvoid residuals 29 - 130 cc. No indication for catheterization. * Increased terazosin from 2 mg to 4 mg at HS starting 09/27/2017. Reports improvement. * Education regarding neurogenic bladder * Recommend outpatient evaluation with renal ultrasound * Follow-up with rehabilitation physician for long-term management * Follow-up with a urologist for possible urodynamic studies * Monitor closely Spasticity: Related to spinal cord injury, present in the upper limbs but no spasticity appreciated in the lower limbs at this point. this discrepancy is likely because of his new acute injury. * Continue Baclofen 10 mg p.o. q.h.s for now. * Consider increasing dose of baclofen if upper limb spasticity is problematic and as long as it is not interfering with lower limb strength * Per his request, changing methocarbamol to p.r.n. during the day starting on as it makes him sleepy. Neuropathic pain: Premorbid * Continue Lyrica 100 mg p.o. t.i.d. * Monitor Other medical issues: Gout: Appears to have a new gout flare of the right ring finger. Steroids and nonsteroidal anti-inflammatories are relatively contraindicated given his recent surgery. Patient has not tried colchicine in the past but is willing to. Uric acid 4.8 during the flare, and he states that in the past it has also been low during flares. On the clinical diagnostic tool, it is likely a gout flare. Normal liver and renal function. * Improved after 2 doses of colchicine 0.6 mg on 09/24/2017. * Continue colchicine 0.6 mg twice daily p.r.n. Until gout flare resolves. * Continue allopurinol 300 mg p.o. q.h.s. DVT prophylaxis. * Lovenox 40 mg subcutaneous daily, to continue while he is in inpatient regardless of mobility status. * SCDs to be worn at night. Pain management. This appears to be mostly acute pain related to the surgery. Goal to get pain under control so that he can participate in therapies. Opioid use may complicate his neurogenic bowel program. * Oxycodone 10 mg p.o. Twice daily, long-acting * Oxycodone 5-10 mg q.4 hours p.r.n. For breakthrough pain, short-acting * The patient also advised to apply ice 20 minutes 2-3 times per day to lower back for lower back spasms. * Changed acetaminophen dose to 1000 mg p.o. Twice daily, checking liver function tests as he stated that he would typically take up to 2000 mg single dose twice a day and sometimes for breakthrough. Advised patient to not take more than 1000 mg at a time, and take less than 3000 mg per day. Spine precautions. * The patient will wear [place] brace while out of bed, except when showering. * Spine precautions are no repetitive bending, stooping, pushing, pulling, twisting or lifting. A lifting limitation of 5 pounds. Left olecranon bursitis. * Apply ice 20 minutes several times per day. * Elbow pads to use except for when showering Left rotator cuff tendonitis/subacromial bursitis. Nonsteroidal anti- inflammatories are relatively contraindicated given his recent spine surgery. * Physical therapy to work on rotator cuff strengthening exercises and strengthening of secondary scapular stabilizers, along with pendulum exercises. Follow-up: Patient will need to follow up with physiatry for ongoing management of chronic spinal cord injury issues including neurogenic bowel, neurogenic bladder, renal ultrasound and renal function monitoring, this could be Dr. Ruelas or at [facility] per his preference. He was treated at [facility] 30 years ago for his spinal cord injury. He will also need follow up with a urologist and possibly need urodynamic studies. Follow up with surgery as well scheduled for 10/04/2017.. Attended staffing, 15 min. Discussed with case management, nursing, dietitian, PT, OT. Goal of transfers to and from wheelchair and car transfers with level of assistance that can provide. He plans to return to work as well. Tentative discharge home with family 10/14/2017. Home OT and PT. 09/30/17 13:48 Subjective: Has spasms of pain with certain position changes in his right lower back adjacent to an old incision otherwise overall not in pain. Thinks he had some improvement in his nocturia. Using suppository every other day with good result. Otherwise no complaints. Staff notes that he is itchy around his neck and shoulders. Objective: Vital Signs Temp Pulse Resp BP Pulse Ox 36.6 C 67 16 116/52 L 93 09/30/17 08:00 09/30/17 08:00 09/30/17 08:00 09/30/17 08:00 09/30/17 08:00 Laboratory Results 09/24/17 11:45 09/24/17 11:45 09/29/17 09/30/17 10/01/17 05:59 05:59 05:59 Intake Total 840 1664 1250 Output Total 1441 925 Balance -985 790 9041 - Time Spent With Patient Time Spent With Patient: Greater than 35 min floor time today, including more than 50% of time in coordination of care during staffing meeting, and counseling patient. Physical Exam - Physical Exam General Appearance: WD/WN, alert, no apparent distress Respiratory: No respiratory distress, No accessory muscle use Skin: normal color, warm/dry, No rash Neuro/Psych: alert, normal mood/affect, oriented x 3, motor weakness (On mat working with OT on left triceps extension without left shoulder protraction.) ICD10 Worksheet Patient Problems: Problems Problem Status Onset Leg weakness, bilateral Acute Spinal cord compression Acute Spinal stenosis, thoracic Acute
[2017-09-30] MEDS ORDERED: AQUAPHOR OINTMENT 3.5 OZ JAR TP PRN (16:23)
[2017-09-30] MEDS: BISACODYL 10 MG SUPP PR PRN (17:53)
[2017-09-30] MEDS: BACLOFEN 10 MG TAB PO SCH (20:51)
[2017-09-30] MEDS: ALLOPURINOL 300 MG TAB PO SCH (20:51)
[2017-09-30] MEDS: TERAZOSIN HCL 2 MG CAP PO SCH (20:51)
[2017-10-01] MEDS: oxyCODONE IR 5 MG TAB PO PRN ×4 (04:39→20:55)
[2017-10-01] MEDS: METHOCARBAMOL 500 MG TAB PO SCH ×2 (06:27→12:23)
[2017-10-01] MEDS: PREGABALIN 100 MG CAP PO SCH ×3 (06:28→20:55)
[2017-10-01] MEDS: LIDOCAINE 4%/MENTHOL 1% PATCH TD SCH (07:26)
[2017-10-01] MEDS: ENOXAPARIN 40 MG/0.4 ML SYR SC SCH (07:28)
--- NOTE | 2017-10-01 10:11 | SOAPPROG ---
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 Today's update: He has been continent and having a regular bowel program with suppository every other day. He is still waiting to get a suppository tool. Trying ambulation with and without AFOs, his home AFO on the left is a carbon fiber but low stiffness, the AFO on the right is high stiffness. Currently he needs a higher stiffness on the left than the right and so we will be trialing stiffer AFOs as an inpatient. He was previously using genu recurvatum to stabilize his gait, counseled him about the risks of long-term knee damage with chronic genu recurvatum. Also counseled him on the importance of urology and physical Medicine and Rehabilitation follow-up for bowel and bladder management issues. A total of 25 min was spent on the floor in the care of the patient, the majority of which was spent in counseling coordination of care regarding discharge planning and discussing options for orthotics. Acute T9-T10 spinal cord injury due to spinal stenosis, status post T9-10 laminectomy and fusion on 09/12/2009, with chronic cervical level spinal cord injury with bilateral lower extremity weakness, more pronounced on the left, with current less than antigravity strength of the right and left hip flexors, quadriceps and hamstrings. Longstanding neurogenic bowel and bladder, incompletely controlled. Notably, he did have more weakness on the left leg premorbidly. * Initial functional independence measure 64 on 09/23/2017. Improved to 77 as of 09/30/2017. Needs assistance with bed mobility to get his legs in and assistance for trunk weakness to get out of bed. He stands with 2 person assist in the parallel bars and can ambulate just a few feet. Has tenodesis bell spinner sousaphones and upper extremity weakness. Independent with upper body dressing. Minimal assist to hike is pants while doing lower body dressing seated. Needs assistance for AFO and shoes. * Continue PT and OT to maximize mobility and gait. Spinal cord injury related issues: Neurogenic bowel: Reports a history of incontinence every 3 months or so, premorbid bowel movement once or twice a week. Goal will be to get on a regularly scheduled bowel program * Using bisacodyl suppository every other day after dinner with good result. * Consider stimulant and/or osmotic laxatives if no bowel movement with suppositories. * Work with nursing and occupational therapy to locate a suppository health program specialist given his decreased hand function * Ongoing upper motor neuron neurogenic bowel education * Monitor closely Neurogenic bladder: Reports a history of needing to urinate frequently, has bouts of incontinence. Has not had renal ultrasounds in the past. No knowledge of prior urodynamic studies. At high risk of high-pressure bladder. * Postvoid residuals 29 - 130 cc. * Increased terazosin from 2 mg to 4 mg at HS starting 09/27/2017. Reports improvement. * Education regarding neurogenic bladder * Recommend outpatient evaluation with renal ultrasound * Follow-up with rehabilitation physician for long-term management * Follow-up with a urologist for possible urodynamic studies * Monitor closely Spasticity: Related to spinal cord injury, present in the upper limbs but no spasticity appreciated in the lower limbs at this point. this discrepancy is likely because of his new acute injury. * Continue Baclofen 10 mg p.o. q.h.s for now. * Consider increasing dose of baclofen if upper limb spasticity is problematic and as long as it is not interfering with lower limb strength * Per his request, changing methocarbamol to p.r.n. during the day starting on as it makes him sleepy. Neuropathic pain: Premorbid * Continue Lyrica 100 mg p.o. t.i.d. * Monitor Other medical issues: Gout: Appears to have a new gout flare of the right ring finger. Steroids and nonsteroidal anti-inflammatories are relatively contraindicated given his recent surgery. Patient has not tried colchicine in the past but is willing to. Uric acid 4.8 during the flare, and he states that in the past it has also been low during flares. On the clinical diagnostic tool, it is likely a gout flare. Normal liver and renal function. * Improved after 2 doses of colchicine 0.6 mg on 09/24/2017. * Continue colchicine 0.6 mg twice daily p.r.n. Until gout flare resolves. * Continue allopurinol 300 mg p.o. q.h.s. DVT prophylaxis. * Lovenox 40 mg subcutaneous daily, to continue while he is in inpatient regardless of mobility status. * SCDs to be worn at night. Pain management. This appears to be mostly acute pain related to the surgery. Goal to get pain under control so that he can participate in therapies. Opioid use may complicate his neurogenic bowel program. * Oxycodone 10 mg p.o. Twice daily, long-acting * Oxycodone 5-10 mg q.4 hours p.r.n. For breakthrough pain, short-acting * The patient also advised to apply ice 20 minutes 2-3 times per day to lower back for lower back spasms. May also try heat which was ordered * Changed acetaminophen dose to 1000 mg p.o. Twice daily, checking liver function tests as he stated that he would typically take up to 2000 mg single dose twice a day and sometimes for breakthrough. Advised patient to not take more than 1000 mg at a time, and take less than 3000 mg per day. Spine precautions. * The patient will wear [place] brace while out of bed, except when showering. * Spine precautions are no repetitive bending, stooping, pushing, pulling, twisting or lifting. A lifting limitation of 5 pounds. Left olecranon bursitis. * Apply ice 20 minutes several times per day. * Elbow pads to use except for when showering Left rotator cuff tendonitis/subacromial bursitis. Nonsteroidal anti- inflammatories are relatively contraindicated given his recent spine surgery. * Physical therapy to work on rotator cuff strengthening exercises and strengthening of secondary scapular stabilizers, along with pendulum exercises. Follow-up: Patient will need to follow up with physiatry for ongoing management of chronic spinal cord injury issues including neurogenic bowel, neurogenic bladder, renal ultrasound and renal function monitoring, this could be Dr. Ruelas or at [facility] per his preference. He was treated at [facility] 30 years ago for his spinal cord injury. He will also need follow up with a urologist and possibly need urodynamic studies. Follow up with surgery as well scheduled for 10/04/2017. Goal of transfers to and from wheelchair and car transfers with level of assistance that can provide. He plans to return to work as well. Tentative discharge home with family 10/14/2017. Home OT and PT. 09/24/17 12:15 09/24/17 12:20 09/24/17 12:26 09/24/17 12:46 09/26/17 10:32 10/01/17 10:08 Subjective: Chief complaint: Orthotics No acute events overnight. Patient denies any new shortness of breath or chest pain, no new numbness, tingling, or weakness. Patient brought his orthotics from home and the left 1 is a low stiffness carbon fiber AFO, the right 1 is a high stiffness carbon fiber AFO. He reports decreased knee stability on the left side in particular with this AFO and is trying to walk without them as well. He reports that he used a genu recurvatum technique for ambulation previously and thought that that was more stable. He will try a stiffer AFO with therapy. Denies any skin problems. Denies any bowel or bladder incontinence, states that every other day bowel program is going well for him. He is waiting to get a suppository health program specialist so that he can be independent in this aspect of his care. Objective: Vital Signs Temp Pulse Resp BP Pulse Ox 36.6 C 74 16 115/65 91 L 10/01/17 07:54 10/01/17 07:54 10/01/17 07:54 10/01/17 07:54 10/01/17 07:54 Laboratory Results 09/24/17 11:45 09/24/17 11:45 09/30/17 10/01/17 10/02/17 05:59 05:59 05:59 Intake Total 1664 2150 439 Output Total 925 1250 125 Balance 739 900 314 Physical Exam - Physical Exam General Appearance: WD/WN, alert, no apparent distress EENT: other (Poor eye contact), No scleral icterus (R), No scleral icterus (L) Respiratory: No respiratory distress, No accessory muscle use Cardiac/Chest: normal peripheral pulses, regular rate, rhythm, No edema Skin: normal color, warm/dry, No cyanosis, No diaphoresis Extremities: No pedal edema, No swelling Neuro/Psych: alert, normal mood/affect, oriented x 3, other (Bilateral left greater than right motor weakness in his legs.) ICD10 Worksheet Patient Problems: Problems Problem Status Onset Leg weakness, bilateral Acute Spinal cord compression Acute Spinal stenosis, thoracic Acute
[2017-10-01] MEDS: ALLOPURINOL 300 MG TAB PO SCH (20:54)
[2017-10-01] MEDS: TERAZOSIN HCL 2 MG CAP PO SCH (20:54)
[2017-10-01] MEDS: BACLOFEN 10 MG TAB PO SCH (20:55)
[2017-10-01] MEDS: PATCH REMOVAL 1 EA PATCH TD SCH (20:55)
[2017-10-02] MEDS: PREGABALIN 100 MG CAP PO SCH ×3 (05:38→21:22)
[2017-10-02] MEDS: ENOXAPARIN 40 MG/0.4 ML SYR SC SCH (08:47)
[2017-10-02] MEDS: LIDOCAINE 4%/MENTHOL 1% PATCH TD SCH (08:47)
[2017-10-02] MEDS: oxyCODONE IR 5 MG TAB PO PRN ×3 (08:52→19:30)
--- NOTE | 2017-10-02 13:26 | SOAPPROG ---
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 Acute T9-T10 spinal cord injury due to spinal stenosis, status post T9-10 laminectomy and fusion on 09/12/2009, with chronic cervical level spinal cord injury with bilateral lower extremity weakness, more pronounced on the left, with current less than antigravity strength of the right and left hip flexors, quadriceps and hamstrings. Longstanding neurogenic bowel and bladder, incompletely controlled. Notably, he did have more weakness on the left leg premorbidly. * Initial functional independence measure 64 on 09/23/2017. Improved to 77 as of 09/30/2017. Needs assistance with bed mobility to get his legs in and assistance for trunk weakness to get out of bed. He stands with 2 person assist in the parallel bars and can ambulate just a few feet. Has tenodesis tanning solution maker and upper extremity weakness. Independent with upper body dressing. Minimal assist to hike is pants while doing lower body dressing seated. Needs assistance for AFO and shoes. * Continue PT and OT to maximize mobility and gait. Spinal cord injury related issues: Neurogenic bowel: Reports a history of incontinence every 3 months or so, premorbid bowel movement once or twice a week. Goal will be to get on a regularly scheduled bowel program * Using bisacodyl suppository every other day after dinner with good result. * Now has suppository manager of security given his decreased hand function * Ongoing upper motor neuron neurogenic bowel education * Monitor closely Neurogenic bladder:? Reports a history of needing to urinate frequently, has bouts of incontinence. Has not had renal ultrasounds in the past. No knowledge of prior urodynamic studies. At high risk of high-pressure bladder. * Postvoid residuals 29 - 130 cc. No indication for catheterization. * Increased terazosin from 2 mg to 4 mg at HS starting 09/27/2017. Reports improvement. * Education regarding neurogenic bladder * Recommend outpatient evaluation with renal ultrasound * Follow-up with rehabilitation physician for long-term management * Follow-up with a urologist for possible urodynamic studies * Monitor closely Spasticity: Related to spinal cord injury, present in the upper limbs but no spasticity appreciated in the lower limbs at this point. this discrepancy is likely because of his new acute injury. * Continue Baclofen 10 mg p.o. q.h.s for now. * Consider increasing dose of baclofen if upper limb spasticity is problematic and as long as it is not interfering with lower limb strength * Per his request, changing methocarbamol to p.r.n. during the day starting on as it makes him sleepy. Neuropathic pain: Premorbid * Continue Lyrica 100 mg p.o. t.i.d. * Monitor Other medical issues: Gout: Appears to have a new gout flare of the right ring finger. Steroids and nonsteroidal anti-inflammatories are relatively contraindicated given his recent surgery. Patient has not tried colchicine in the past but is willing to. Uric acid 4.8 during the flare, and he states that in the past it has also been low during flares. On the clinical diagnostic tool, it is likely a gout flare. Normal liver and renal function. * Improved after 2 doses of colchicine 0.6 mg on 09/24/2017. * Continue colchicine 0.6 mg twice daily p.r.n. Until gout flare resolves. * Continue allopurinol 300 mg p.o. q.h.s. DVT prophylaxis. * Lovenox 40 mg subcutaneous daily, to continue while he is in inpatient regardless of mobility status. * SCDs to be worn at night. Pain management. This appears to be mostly acute pain related to the surgery. Goal to get pain under control so that he can participate in therapies. Opioid use may complicate his neurogenic bowel program. * Oxycodone 10 mg p.o. Twice daily, long-acting * Oxycodone 5-10 mg q.4 hours p.r.n. For breakthrough pain, short-acting * The patient also advised to apply ice 20 minutes 2-3 times per day to lower back for lower back spasms. * Changed acetaminophen dose to 1000 mg p.o. Twice daily, checking liver function tests as he stated that he would typically take up to 2000 mg single dose twice a day and sometimes for breakthrough. Advised patient to not take more than 1000 mg at a time, and take less than 3000 mg per day. Spine precautions. * The patient will wear [place] brace while out of bed, except when showering. * Spine precautions are no repetitive bending, stooping, pushing, pulling, twisting or lifting. A lifting limitation of 5 pounds. Left olecranon bursitis. * Apply ice 20 minutes several times per day. * Elbow pads to use except for when showering Left rotator cuff tendonitis/subacromial bursitis. Nonsteroidal anti- inflammatories are relatively contraindicated given his recent spine surgery. * Physical therapy to work on rotator cuff strengthening exercises and strengthening of secondary scapular stabilizers, along with pendulum exercises. Follow-up: Patient will need to follow up with physiatry for ongoing management of chronic spinal cord injury issues including neurogenic bowel, neurogenic bladder, renal ultrasound and renal function monitoring, this could be Dr. Ruelas or at [facility] per his preference. He was treated at [facility] 30 years ago for his spinal cord injury. He will also need follow up with a urologist and possibly need urodynamic studies. Follow up with surgery as well scheduled for 10/04/2017.. Goal of transfers to and from wheelchair and car transfers with level of assistance that can provide. He plans to return to work as well. Tentative discharge home with family 10/14/2017. Home OT and PT. 10/02/17 13:22 Subjective: Complains of back pain today says he is sore all over. Otherwise without complaints. He does not feel itchy. Bowels are moving with suppository. Objective: Vital Signs Temp Pulse Resp BP Pulse Ox 36.8 C 71 16 133/68 H 93 10/02/17 06:17 10/02/17 06:17 10/02/17 06:17 10/02/17 06:17 10/02/17 06:17 Laboratory Results 09/24/17 11:45 09/24/17 11:45 10/01/17 10/02/17 10/03/17 05:59 05:59 05:59 Intake Total 2150 1750 Output Total 1250 925 Balance 900 825 Physical Exam - Physical Exam General Appearance: WD/WN, alert, no apparent distress Respiratory: normal breath sounds, No crackles, No rhonchi, No wheezing Back: Normal inspection, Other (Mildly tender on the right side below the scapula.) Skin: normal color, warm/dry Neuro/Psych: alert, normal mood/affect, oriented x 3 ICD10 Worksheet Patient Problems: Problems Problem Status Onset Leg weakness, bilateral Acute Spinal cord compression Acute Spinal stenosis, thoracic Acute
[2017-10-02] MEDS: BISACODYL 10 MG SUPP PR PRN (17:31)
[2017-10-02] MEDS: ALLOPURINOL 300 MG TAB PO SCH (21:22)
[2017-10-02] MEDS: BACLOFEN 10 MG TAB PO SCH (21:22)
[2017-10-02] MEDS: METHOCARBAMOL 500 MG TAB PO PRN (21:22)
[2017-10-02] MEDS: TERAZOSIN HCL 2 MG CAP PO SCH (21:22)
[2017-10-03] MEDS: PATCH REMOVAL 1 EA PATCH TD SCH (00:44)
[2017-10-03] MEDS: PREGABALIN 100 MG CAP PO SCH ×3 (05:02→21:08)
[2017-10-03] MEDS: oxyCODONE IR 5 MG TAB PO PRN ×3 (06:39→17:27)
[2017-10-03] MEDS: LIDOCAINE 4%/MENTHOL 1% PATCH TD SCH (07:57)
[2017-10-03] MEDS: ENOXAPARIN 40 MG/0.4 ML SYR SC SCH (08:04)
--- NOTE | 2017-10-03 10:06 | SOAPPROG ---
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 Today's update: Starting colchicine for gout flare at the left ankle. Getting plain films of his spinal hardware to ensure stability. Counseled him at length on options for spasticity management and recommended aggressive stretching. A total of 35 min was spent on the floor in the care of the patient , the majority of which was spent in counseling coordination of care regarding the issues noted above, specially spasticity management strategies. Acute T9-T10 spinal cord injury due to spinal stenosis, status post T9-10 laminectomy and fusion on 09/12/2009, with chronic cervical level spinal cord injury with bilateral lower extremity weakness, more pronounced on the left, with current less than antigravity strength of the right and left hip flexors, quadriceps and hamstrings. Longstanding neurogenic bowel and bladder, incompletely controlled. Notably, he did have more weakness on the left leg premorbidly. * Initial functional independence measure 64 on 09/23/2017. Improved to 77 as of 09/30/2017. Needs assistance with bed mobility to get his legs in and assistance for trunk weakness to get out of bed. He stands with 2 person assist in the parallel bars and can ambulate just a few feet. 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 Independent with upper body dressing. Minimal assist to hike is pants while doing lower body dressing seated. Needs assistance for AFO and shoes. * Continue PT and OT to maximize mobility and gait. * Check plain films for hardware stability, continues to have some pain isolated in the back, helped by rest. Spinal cord injury related issues: Neurogenic bowel: Reports a history of incontinence every 3 months or so, premorbid bowel movement once or twice a week. Goal will be to get on a regularly scheduled bowel program * Using bisacodyl suppository every other day after dinner with good result. * Now has suppository liner inserter given his decreased hand function, has not used the suppository and surgery yet, still working with OT * Ongoing upper motor neuron neurogenic bowel education * Monitor closely Neurogenic bladder:? Reports a history of needing to urinate frequently, has bouts of incontinence. Has not had renal ultrasounds in the past. No knowledge of prior urodynamic studies. At high risk of high-pressure bladder. * Postvoid residuals 29 - 130 cc. * Increased terazosin from 2 mg to 4 mg at HS starting 09/27/2017. Reports improvement. * Education regarding neurogenic bladder * Recommend outpatient evaluation with renal ultrasound * Follow-up with rehabilitation physician for long-term management * Follow-up with a urologist for possible urodynamic studies * Monitor closely Spasticity: Related to spinal cord injury, present in the upper limbs but no spasticity appreciated in the lower limbs at this point. this discrepancy is likely because of his new acute injury. * Continue Baclofen 10 mg p.o. q.h.s for now. * Consider increasing dose of baclofen if upper limb spasticity is problematic and as long as it is not interfering with lower limb strength * Per his request, changing methocarbamol to p.r.n. during the day starting on as it makes him sleepy. * Discussed stretching routine and recommended aggressive stretching for management, could also modify his baclofen schedule as needed for spasticity management throughout the day and night. Neuropathic pain: Premorbid * Continue Lyrica 100 mg p.o. t.i.d. * Monitor Other medical issues: Gout: New gout symptoms of his left ankle, responded well to colchicine at his right hand with similar symptoms earlier on this visit * Restart colchicine 0.6 mg x3 doses * Continue colchicine 0.6 mg twice daily p.r.n. Until gout flare resolves. * Continue allopurinol 300 mg p.o. q.h.s. DVT prophylaxis. * Lovenox 40 mg subcutaneous daily, to continue while he is in inpatient regardless of mobility status. * SCDs to be worn at night. Pain management. This appears to be mostly acute pain related to the surgery. Goal to get pain under control so that he can participate in therapies. Opioid use may complicate his neurogenic bowel program. * Oxycodone 10 mg p.o. Twice daily, long-acting * Oxycodone 5-10 mg q.4 hours p.r.n. For breakthrough pain, short-acting * The patient also advised to apply ice 20 minutes 2-3 times per day to lower back for lower back spasms. * Changed acetaminophen dose to 1000 mg p.o. Twice daily, checking liver function tests as he stated that he would typically take up to 2000 mg single dose twice a day and sometimes for breakthrough. Advised patient to not take more than 1000 mg at a time, and take less than 3000 mg per day. Spine precautions. * The patient will wear [place] brace while out of bed, except when showering. * Spine precautions are no repetitive bending, stooping, pushing, pulling, twisting or lifting. A lifting limitation of 5 pounds. Left olecranon bursitis. * Apply ice 20 minutes several times per day. * Elbow pads to use except for when showering Left rotator cuff tendonitis/subacromial bursitis. Nonsteroidal anti- inflammatories are relatively contraindicated given his recent spine surgery. * Physical therapy to work on rotator cuff strengthening exercises and strengthening of secondary scapular stabilizers, along with pendulum exercises. Follow-up: Patient will need to follow up with physiatry for ongoing management of chronic spinal cord injury issues including neurogenic bowel, neurogenic bladder, renal ultrasound and renal function monitoring, this could be Dr. Ruelas or at [facility] per his preference. He was treated at [facility] 30 years ago for his spinal cord injury. He will also need follow up with a urologist and possibly need urodynamic studies. Follow up with surgery as well scheduled for 10/04/2017.. Goal of transfers to and from wheelchair and car transfers with level of assistance that can provide. He plans to return to work as well. Tentative discharge home with family 10/14/2017. Home OT and PT. 09/24/17 12:15 09/24/17 12:20 09/24/17 12:26 09/24/17 12:46 09/26/17 10:32 10/01/17 10:08 10/03/17 10:02 Subjective: Chief complaint: Left ankle pain No acute events overnight. Patient endorsed onset of new ankle pain on the left side that he feels is consistent with his usual gout flares. He had a gout flare previously on this admission the responded to colchicine. He is not able to take NSAIDs or steroids because of his recent surgery. He also he endorses ongoing low back pain and is a bit concerned about hardware. Otherwise , he notes ongoing spasticity is worse in the morning but he takes baclofen at night. Open to adjusting the schedule is going to think about when he has symptoms and get back to us. No new shortness of breath or chest pain, no new numbness, tingling, or weakness. He notes that he has active spasms in the lower limbs worse in the morning. Baclofen has been helpful Objective: Vital Signs Temp Pulse Resp BP Pulse Ox 36.7 C 75 16 119/69 94 10/03/17 05:09 10/03/17 05:09 10/03/17 05:09 10/03/17 05:09 10/03/17 05:09 Laboratory Results 09/24/17 11:45 09/24/17 11:45 10/02/17 10/03/17 10/04/17 05:59 05:59 05:59 Intake Total 1750 1240 Output Total 925 725 Balance 825 515 Physical Exam - Physical Exam General Appearance: alert, no apparent distress EENT: No scleral icterus (R), No scleral icterus (L) Respiratory: No respiratory distress, No accessory muscle use Cardiac/Chest: normal peripheral pulses, regular rate, rhythm Skin: normal color, warm/dry, No cyanosis, No diaphoresis Extremities: other (Left ankle with mild swelling, tenderness, warmth. He feels symptoms are consistent with his usual gout flare) Neuro/Psych: alert, normal mood/affect, oriented x 3, other (Weakness in the lower extremities greater than upper extremities, no spasticity in the lower limbs appreciated) ICD10 Worksheet Patient Problems: Problems Problem Status Onset Leg weakness, bilateral Acute Spinal cord compression Acute Spinal stenosis, thoracic Acute
[2017-10-03] MEDS: COLCHICINE 0.6 MG CAP/TAB PO SCH ×3 (12:04→21:08)
[2017-10-03] MEDS: ALLOPURINOL 300 MG TAB PO SCH (21:08)
[2017-10-03] MEDS: METHOCARBAMOL 500 MG TAB PO PRN (21:08)
[2017-10-03] MEDS: BACLOFEN 10 MG TAB PO SCH (21:08)
[2017-10-03] MEDS: TERAZOSIN HCL 2 MG CAP PO SCH (21:08)
[2017-10-04] MEDS: PATCH REMOVAL 1 EA PATCH TD SCH (02:53)
[2017-10-04] MEDS: PREGABALIN 100 MG CAP PO SCH ×3 (05:13→21:03)
[2017-10-04] MEDS: oxyCODONE IR 5 MG TAB PO PRN ×2 (07:36→14:38)
[2017-10-04] MEDS: LIDOCAINE 4%/MENTHOL 1% PATCH TD SCH (07:37)
[2017-10-04] MEDS: ENOXAPARIN 40 MG/0.4 ML SYR SC SCH (07:37)
--- NOTE | 2017-10-04 14:41 | SOAPPROG ---
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 Acute T9-T10 spinal cord injury due to spinal stenosis, status post T9-10 laminectomy and fusion on 09/12/2009. Thoracic and lumbar spine x-rays showed good placement of spinal hardware which is well seated. Chronic cervical level spinal cord injury with bilateral lower extremity weakness, more pronounced on the left, with current less than antigravity strength of the right and left hip flexors, quadriceps and hamstrings. Longstanding neurogenic bowel and bladder, incompletely controlled. Notably, he did have more weakness on the left leg premorbidly. * Initial functional independence measure 64 on 09/23/2017. Improved to 77 as of 09/30/2017. Needs assistance with bed mobility to get his legs in and assistance for trunk weakness to get out of bed. He stands with 2 person assist in the parallel bars and can ambulate just a few feet. 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 Independent with upper body dressing. Minimal assist to hike is pants while doing lower body dressing seated. Needs assistance for AFO and shoes. * Continue PT and OT to maximize mobility and gait. * Check plain films for hardware stability, continues to have some pain isolated in the back, helped by rest. Spinal cord injury related issues: Neurogenic bowel: Reports a history of incontinence every 3 months or so, premorbid bowel movement once or twice a week. Goal will be to get on a regularly scheduled bowel program * Using bisacodyl suppository every other day after dinner with good result. 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 Reports a history of needing to urinate frequently, has bouts of incontinence. Has not had renal ultrasounds in the past. No knowledge of prior urodynamic studies. At high risk of high-pressure bladder. * Postvoid residuals 29 - 130 cc. * Increased terazosin from 2 mg to 4 mg at HS starting 09/27/2017. Reports improvement. * Education regarding neurogenic bladder * Recommend outpatient evaluation with renal ultrasound * Follow-up with rehabilitation physician for long-term management * Follow-up with a urologist for possible urodynamic studies * Monitor closely Spasticity: Related to spinal cord injury, present in the upper limbs but no spasticity appreciated in the lower limbs at this point. this discrepancy is likely because of his new acute injury. The patient does not report upper extremity spasticity is being problematic. * Continue Baclofen 10 mg p.o. q.h.s for now. * Consider increasing dose of baclofen if upper limb spasticity is problematic and as long as it is not interfering with lower limb strength * Per his request, changing methocarbamol to p.r.n. during the day starting on as it makes him sleepy. * Discussed stretching routine and recommended aggressive stretching for management, could also modify his baclofen schedule as needed for spasticity management throughout the day and night. Neuropathic pain: Premorbid * Continue Lyrica 100 mg p.o. t.i.d. * Monitor Other medical issues: Gout: New gout symptoms of his left ankle, responded well to colchicine at his right hand with similar symptoms earlier on this visit * Restart colchicine 0.6 mg x3 doses * Continue colchicine 0.6 mg twice daily p.r.n. Until gout flare resolves. * Continue allopurinol 300 mg p.o. q.h.s. DVT prophylaxis. * Lovenox 40 mg subcutaneous daily, to continue while he is in inpatient regardless of mobility status. * SCDs to be worn at night. Pain management. This appears to be mostly acute pain related to the surgery. Goal to get pain under control so that he can participate in therapies. Opioid use may complicate his neurogenic bowel program. * Oxycodone 10 mg p.o. Twice daily, long-acting * Oxycodone 5-10 mg q.4 hours p.r.n. For breakthrough pain, short-acting * The patient also advised to apply ice 20 minutes 2-3 times per day to lower back for lower back spasms. * Changed acetaminophen dose to 1000 mg p.o. Twice daily, checking liver function tests as he stated that he would typically take up to 2000 mg single dose twice a day and sometimes for breakthrough. Advised patient to not take more than 1000 mg at a time, and take less than 3000 mg per day. Spine precautions. * The patient will wear [place] brace while out of bed, except when showering. * Spine precautions are no repetitive bending, stooping, pushing, pulling, twisting or lifting. A lifting limitation of 5 pounds. Left olecranon bursitis. * Apply ice 20 minutes several times per day. * Elbow pads to use except for when showering Left rotator cuff tendonitis/subacromial bursitis. Nonsteroidal anti- inflammatories are relatively contraindicated given his recent spine surgery. * Physical therapy to work on rotator cuff strengthening exercises and strengthening of secondary scapular stabilizers, along with pendulum exercises. Follow-up: Patient will need to follow up with physiatry for ongoing management of chronic spinal cord injury issues including neurogenic bowel, neurogenic bladder, renal ultrasound and renal function monitoring, this could be Dr. Ruelas or at [facility] per his preference. He was treated at [facility] 30 years ago for his spinal cord injury. He will also need follow up with a urologist and possibly need urodynamic studies. Follow up with surgery as well scheduled for 10/04/2017.. Goal of transfers to and from wheelchair and car transfers with level of assistance that can provide. He plans to return to work as well. Tentative discharge home with family 10/14/2017. Home OT a Subjective: He reports pain in both lower extremities in the morning but does not describe spasticity. He reports that strength is beginning to return into his lower extremities and has been standing in the parallel bars. He reports adequate control of back pain. Objective: Vital Signs Temp Pulse Resp BP Pulse Ox 36.6 C 95 18 116/69 95 10/03/17 18:00 10/03/17 18:00 10/03/17 18:00 10/03/17 18:00 10/03/17 18:00 Laboratory Results 09/24/17 11:45 09/24/17 11:45 10/03/17 10/04/17 10/05/17 05:59 05:59 05:59 Intake Total 1240 1410 460 Output Total 725 775 125 Balance 515 635 335 Physical Exam - Physical Exam General Appearance: WD/WN, alert, no apparent distress Respiratory: lungs clear, normal breath sounds Cardiac/Chest: regular rate, rhythm, No edema Abdomen: non-tender, soft Skin: normal color, warm/dry Extremities: No swelling, No Aravind's sign Neuro/Psych: motor weakness (Bilateral lower extremity weakness consistent with paraplegia. This is essentially unchanged from admitting physical exam) ICD10 Worksheet Patient Problems: Problems Problem Status Onset Leg weakness, bilateral Acute Spinal cord compression Acute Spinal stenosis, thoracic Acute
[2017-10-04] MEDS: BISACODYL 10 MG SUPP PR PRN (18:11)
[2017-10-04] MEDS: TERAZOSIN HCL 2 MG CAP PO SCH (21:02)
[2017-10-04] MEDS: ALLOPURINOL 300 MG TAB PO SCH (21:02)
[2017-10-04] MEDS: BACLOFEN 10 MG TAB PO SCH (21:03)
[2017-10-05] MEDS: oxyCODONE IR 5 MG TAB PO PRN ×3 (04:56→14:58)
[2017-10-05] MEDS: PATCH REMOVAL 1 EA PATCH TD SCH ×2 (04:57→21:46)
[2017-10-05] MEDS: PREGABALIN 100 MG CAP PO SCH ×3 (05:00→21:11)
[2017-10-05] MEDS: ENOXAPARIN 40 MG/0.4 ML SYR SC SCH (08:24)
[2017-10-05] MEDS: LIDOCAINE 4%/MENTHOL 1% PATCH TD SCH (08:24)
--- NOTE | 2017-10-05 11:53 | SOAPPROG ---
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 Acute T9-T10 spinal cord injury due to spinal stenosis, status post T9-10 laminectomy and fusion on 09/12/2009. Thoracic and lumbar spine x-rays showed good placement of spinal hardware which is well seated. Chronic cervical level spinal cord injury with bilateral lower extremity weakness, more pronounced on the left, with current less than antigravity strength of the right and left hip flexors, quadriceps and hamstrings. Longstanding neurogenic bowel and bladder, incompletely controlled. Notably, he did have more weakness on the left leg premorbidly. * Initial functional independence measure 64 on 09/23/2017. Improved to 77 as of 09/30/2017. Needs assistance with bed mobility to get his legs in and assistance for trunk weakness to get out of bed. He stands with 2 person assist in the parallel bars and can ambulate just a few feet. 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 Independent with upper body dressing. Minimal assist to hike is pants while doing lower body dressing seated. Needs assistance for AFO and shoes. * Continue PT and OT to maximize mobility and gait. * Check plain films for hardware stability, continues to have some pain isolated in the back, helped by rest. Spinal cord injury related issues: Neurogenic bowel: Reports a history of incontinence every 3 months or so, premorbid bowel movement once or twice a week. Goal will be to get on a regularly scheduled bowel program * Using bisacodyl suppository every other day after dinner with good result. * Now has suppository top dyeing machine tender given his decreased hand function, has not used the suppository and surgery yet, still working with OT * Ongoing upper motor neuron neurogenic bowel education * Monitor closely Neurogenic bladder:? Reports a history of needing to urinate frequently, has bouts of incontinence. Has not had renal ultrasounds in the past. No knowledge of prior urodynamic studies. At high risk of high-pressure bladder. * Postvoid residuals 29 - 130 cc. * Increased terazosin from 2 mg to 4 mg at HS starting 09/27/2017. Reports improvement. * Education regarding neurogenic bladder * Recommend outpatient evaluation with renal ultrasound * Follow-up with rehabilitation physician for long-term management * Follow-up with a urologist for possible urodynamic studies * Monitor closely Spasticity: Related to spinal cord injury, present in the upper limbs but no spasticity appreciated in the lower limbs at this point. this discrepancy is likely because of his new acute injury. The patient does not report upper extremity spasticity is being problematic. * Continue Baclofen 10 mg p.o. q.h.s for now. * Consider increasing dose of baclofen if upper limb spasticity is problematic and as long as it is not interfering with lower limb strength * Per his request, changing methocarbamol to p.r.n. during the day starting on as it makes him sleepy. * Discussed stretching routine and recommended aggressive stretching for management, could also modify his baclofen schedule as needed for spasticity management throughout the day and night. Neuropathic pain: Premorbid * Continue Lyrica 100 mg p.o. t.i.d. * Monitor Other medical issues: Gout: New gout symptoms of his left ankle, responded well to colchicine at his right hand with similar symptoms earlier on this visit * Restart colchicine 0.6 mg x3 doses * Continue colchicine 0.6 mg twice daily p.r.n. Until gout flare resolves. * Continue allopurinol 300 mg p.o. q.h.s. DVT prophylaxis. * Lovenox 40 mg subcutaneous daily, to continue while he is in inpatient regardless of mobility status. * SCDs to be worn at night. Pain management. This appears to be mostly acute pain related to the surgery. Goal to get pain under control so that he can participate in therapies. Opioid use may complicate his neurogenic bowel program. * Oxycodone 10 mg p.o. Twice daily, long-acting * Oxycodone 5-10 mg q.4 hours p.r.n. For breakthrough pain, short-acting * The patient also advised to apply ice 20 minutes 2-3 times per day to lower back for lower back spasms. * Changed acetaminophen dose to 1000 mg p.o. Twice daily, checking liver function tests as he stated that he would typically take up to 2000 mg single dose twice a day and sometimes for breakthrough. Advised patient to not take more than 1000 mg at a time, and take less than 3000 mg per day. Spine precautions. * The patient will wear [place] brace while out of bed, except when showering. * Spine precautions are no repetitive bending, stooping, pushing, pulling, twisting or lifting. A lifting limitation of 5 pounds. Left olecranon bursitis. * Apply ice 20 minutes several times per day. * Elbow pads to use except for when showering Left rotator cuff tendonitis/subacromial bursitis. Nonsteroidal anti- inflammatories are relatively contraindicated given his recent spine surgery. * Physical therapy to work on rotator cuff strengthening exercises and strengthening of secondary scapular stabilizers, along with pendulum exercises. Follow-up: Patient will need to follow up with physiatry for ongoing management of chronic spinal cord injury issues including neurogenic bowel, neurogenic bladder, renal ultrasound and renal function monitoring, this could be Dr. Ruelas or at [facility] per his preference. He was treated at [facility] 30 years ago for his spinal cord injury. He will also need follow up with a urologist and possibly need urodynamic studies. Follow up with surgery as well scheduled for 10/04/2017.. Goal of transfers to and from wheelchair and car transfers with level of assistance that can provide. He plans to return to work as well. Tentative discharge home with family 10/14/2017. Home OT a Plan: 10/05/17 11:53 Subjective: no new complaints. no further gout Objective: Vital Signs Temp Pulse Resp BP Pulse Ox 36.7 C 65 16 121/69 H 93 10/05/17 06:38 10/05/17 06:38 10/05/17 06:38 10/05/17 06:38 10/05/17 06:38 Laboratory Results 09/24/17 11:45 09/24/17 11:45 10/04/17 10/05/17 10/06/17 05:59 05:59 05:59 Intake Total 1410 1160 594 Output Total 775 900 Balance 635 260 594 Physical Exam - Physical Exam General Appearance: WD/WN, alert, no apparent distress Respiratory: No respiratory distress Neuro/Psych: alert, normal mood/affect, oriented x 3 ICD10 Worksheet Patient Problems: Problems Problem Status Onset Leg weakness, bilateral Acute Spinal cord compression Acute Spinal stenosis, thoracic Acute
[2017-10-05] MEDS: BACLOFEN 10 MG TAB PO SCH (21:11)
[2017-10-05] MEDS: ALLOPURINOL 300 MG TAB PO SCH (21:11)
[2017-10-05] MEDS: TERAZOSIN HCL 2 MG CAP PO SCH (21:11)
[2017-10-05] MEDS: MAG HYDROX/AL HYDROX/SIMETH 30 ML UDCUP PO PRN (21:20)
[2017-10-06] MEDS: oxyCODONE IR 5 MG TAB PO PRN ×4 (01:22→20:17)
[2017-10-06] MEDS: PREGABALIN 100 MG CAP PO SCH ×3 (05:25→20:18)
[2017-10-06] MEDS: LIDOCAINE 4%/MENTHOL 1% PATCH TD SCH (07:42)
[2017-10-06] MEDS: ENOXAPARIN 40 MG/0.4 ML SYR SC SCH (07:43)
--- NOTE | 2017-10-06 19:32 | SOAPPROG ---
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 Acute T9-T10 spinal cord injury due to spinal stenosis, status post T9-10 laminectomy and fusion on 09/12/2009. Thoracic and lumbar spine x-rays showed good placement of spinal hardware which is well seated. Chronic cervical level spinal cord injury with bilateral lower extremity weakness, more pronounced on the left, with current less than antigravity strength of the right and left hip flexors, quadriceps and hamstrings. Longstanding neurogenic bowel and bladder, incompletely controlled. Notably, he did have more weakness on the left leg premorbidly. * Initial functional independence measure 64 on 09/23/2017. Improved to 77 as of 09/30/2017. Needs assistance with bed mobility to get his legs in and assistance for trunk weakness to get out of bed. He stands with 2 person assist in the parallel bars and can ambulate just a few feet. 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 Independent with upper body dressing. Minimal assist to hike is pants while doing lower body dressing seated. Needs assistance for AFO and shoes. * Continue PT and OT to maximize mobility and gait. * Check plain films for hardware stability, continues to have some pain isolated in the back, helped by rest. Spinal cord injury related issues: Neurogenic bowel: Reports a history of incontinence every 3 months or so, premorbid bowel movement once or twice a week. Goal will be to get on a regularly scheduled bowel program * Using bisacodyl suppository every other day after dinner with good result. 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 Reports a history of needing to urinate frequently, has bouts of incontinence. Has not had renal ultrasounds in the past. No knowledge of prior urodynamic studies. At high risk of high-pressure bladder. * Postvoid residuals 29 - 130 cc. * Increased terazosin from 2 mg to 4 mg at HS starting 09/27/2017. Reports improvement. * Education regarding neurogenic bladder * Recommend outpatient evaluation with renal ultrasound * Follow-up with rehabilitation physician for long-term management * Follow-up with a urologist for possible urodynamic studies * Monitor closely Spasticity: Related to spinal cord injury, present in the upper limbs but no spasticity appreciated in the lower limbs at this point. this discrepancy is likely because of his new acute injury. The patient does not report upper extremity spasticity is being problematic. * Continue Baclofen 10 mg p.o. q.h.s for now. * Consider increasing dose of baclofen if upper limb spasticity is problematic and as long as it is not interfering with lower limb strength * Per his request, changing methocarbamol to p.r.n. during the day starting on as it makes him sleepy. * Discussed stretching routine and recommended aggressive stretching for management, could also modify his baclofen schedule as needed for spasticity management throughout the day and night. Neuropathic pain: Premorbid * Continue Lyrica 100 mg p.o. t.i.d. * Monitor Other medical issues: Gout: New gout symptoms of his left ankle, responded well to colchicine at his right hand with similar symptoms earlier on this visit * Restart colchicine 0.6 mg x3 doses * Continue colchicine 0.6 mg twice daily p.r.n. Until gout flare resolves. * Continue allopurinol 300 mg p.o. q.h.s. DVT prophylaxis. * Lovenox 40 mg subcutaneous daily, to continue while he is in inpatient regardless of mobility status. * SCDs to be worn at night. Pain management. This appears to be mostly acute pain related to the surgery. Goal to get pain under control so that he can participate in therapies. Opioid use may complicate his neurogenic bowel program. * Oxycodone 10 mg p.o. Twice daily, long-acting * Oxycodone 5-10 mg q.4 hours p.r.n. For breakthrough pain, short-acting * The patient also advised to apply ice 20 minutes 2-3 times per day to lower back for lower back spasms. * Changed acetaminophen dose to 1000 mg p.o. Twice daily, checking liver function tests as he stated that he would typically take up to 2000 mg single dose twice a day and sometimes for breakthrough. Advised patient to not take more than 1000 mg at a time, and take less than 3000 mg per day. Spine precautions. * The patient will wear [place] brace while out of bed, except when showering. * Spine precautions are no repetitive bending, stooping, pushing, pulling, twisting or lifting. A lifting limitation of 5 pounds. Left olecranon bursitis. * Apply ice 20 minutes several times per day. * Elbow pads to use except for when showering Left rotator cuff tendonitis/subacromial bursitis. Nonsteroidal anti- inflammatories are relatively contraindicated given his recent spine surgery. * Physical therapy to work on rotator cuff strengthening exercises and strengthening of secondary scapular stabilizers, along with pendulum exercises. Follow-up: Patient will need to follow up with physiatry for ongoing management of chronic spinal cord injury issues including neurogenic bowel, neurogenic bladder, renal ultrasound and renal function monitoring, this could be Dr. Ruelas or at [facility] per his preference. He was treated at [facility] 30 years ago for his spinal cord injury. He will also need follow up with a urologist and possibly need urodynamic studies. Follow up with surgery as well scheduled for 10/04/2017.. Goal of transfers to and from wheelchair and car transfers with level of assistance that can provide. He plans to return to work as well. Tentative discharge home with family 10/14/2017. Home OT a Plan: 10/05/17 11:53 Subjective: No new complaints or events Objective: Vital Signs Temp Pulse Resp BP Pulse Ox 36.8 C 79 17 102/63 97 10/06/17 18:18 10/06/17 18:18 10/06/17 18:18 10/06/17 18:18 10/06/17 18:18 Laboratory Results 09/24/17 11:45 09/24/17 11:45 10/05/17 10/06/17 10/07/17 05:59 05:59 05:59 Intake Total 1160 1324 1012 Output Total 900 525 250 Balance 260 799 762 Physical Exam - Physical Exam General Appearance: WD/WN, alert, no apparent distress Respiratory: lungs clear, normal breath sounds, No respiratory distress Cardiac/Chest: regular rate, rhythm Abdomen: non-tender, soft Neuro/Psych: alert, normal mood/affect ICD10 Worksheet Patient Problems: Problems Problem Status Onset Leg weakness, bilateral Acute Spinal cord compression Acute Spinal stenosis, thoracic Acute
[2017-10-06] MEDS: ALLOPURINOL 300 MG TAB PO SCH (20:17)
[2017-10-06] MEDS: BACLOFEN 10 MG TAB PO SCH (20:17)
[2017-10-06] MEDS: TERAZOSIN HCL 2 MG CAP PO SCH (20:17)
[2017-10-06] MEDS: PATCH REMOVAL 1 EA PATCH TD SCH (20:18)
[2017-10-07] MEDS: PREGABALIN 100 MG CAP PO SCH ×3 (06:24→20:44)
[2017-10-07] MEDS: oxyCODONE IR 5 MG TAB PO PRN ×2 (06:27→20:43)
[2017-10-07] MEDS: ENOXAPARIN 40 MG/0.4 ML SYR SC SCH (07:25)
[2017-10-07] MEDS: METHOCARBAMOL 500 MG TAB PO PRN (07:25)
[2017-10-07] MEDS: LIDOCAINE 4%/MENTHOL 1% PATCH TD SCH (08:13)
[2017-10-07] MEDS: BISACODYL 10 MG SUPP PR PRN (13:29)
--- NOTE | 2017-10-07 13:40 | SOAPPROG ---
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 Acute T9-T10 spinal cord injury due to spinal stenosis, status post T9-10 laminectomy and fusion on 09/12/2009. Thoracic and lumbar spine x-rays showed good placement of spinal hardware which is well seated. Chronic cervical level spinal cord injury with bilateral lower extremity weakness, more pronounced on the left, with current less than antigravity strength of the right and left hip flexors, quadriceps and hamstrings. Longstanding neurogenic bowel and bladder, incompletely controlled. Notably, he did have more weakness on the left leg premorbidly. * Initial functional independence measure 64 on 09/23/2017. Improved to 77 as of 09/30/2017. Current fem score is 85. Needs assistance with bed mobility to get his legs in and assistance for trunk weakness to get out of bed. He stands with 2 person assist in the parallel bars and can ambulate just a few feet. 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 Independent with upper body dressing. Minimal assist to hike is pants while doing lower body dressing seated. Needs assistance for AFO and shoes. PATIENT WOULD BENEFIT FROM AN ADDITIONAL 2-3 WEEKS PHYSICAL THERAPY TO IMPROVE ABILITY TO PERFORM ADLS, FOR BED MOBILITY, TRANSFERS AND STANDING TO ASSIST WITH TRANSFERS. * Continue PT and OT to maximize mobility and gait. * Check plain films for hardware stability, continues to have some pain isolated in the back, helped by rest. Spinal cord injury related issues: Neurogenic bowel: Reports a history of incontinence every 3 months or so, premorbid bowel movement once or twice a week. Goal will be to get on a regularly scheduled bowel program * Using bisacodyl suppository every other day after dinner with good result. 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 Reports a history of needing to urinate frequently, has bouts of incontinence. Has not had renal ultrasounds in the past. No knowledge of prior urodynamic studies. At high risk of high-pressure bladder. * Postvoid residuals 29 - 130 cc. * Increased terazosin from 2 mg to 4 mg at HS starting 09/27/2017. Reports improvement. * Education regarding neurogenic bladder * Recommend outpatient evaluation with renal ultrasound * Follow-up with rehabilitation physician for long-term management * Follow-up with a urologist for possible urodynamic studies * Monitor closely Spasticity: Related to spinal cord injury, present in the upper limbs but no spasticity appreciated in the lower limbs at this point. this discrepancy is likely because of his new acute injury. The patient does not report upper extremity spasticity is being problematic. * Continue Baclofen 10 mg p.o. q.h.s for now. * Consider increasing dose of baclofen if upper limb spasticity is problematic and as long as it is not interfering with lower limb strength * Per his request, changing methocarbamol to p.r.n. during the day starting on as it makes him sleepy. * Discussed stretching routine and recommended aggressive stretching for management, could also modify his baclofen schedule as needed for spasticity management throughout the day and night. * WILL CHANGE ROBAXIN DOSAGE TO REGULARLY SCHEDULED 750 MG IN THE MORNING, AND 750 MG P.R.N. AFTERNOON AND EVENING. Neuropathic pain: Premorbid * Continue Lyrica 100 mg p.o. t.i.d. * Monitor LEFT ROTATOR CUFF TENDINITIS-WILL ASK OCCUPATIONAL THERAPY TO PERFORM PENDULUM EXERCISES AND TO PROVIDE PATIENT WITH A THERA-BAND TO STRENGTH IN THE SUPRASPINATUS AND INFRASPINATUS. ALSO TO IMPROVE POSTURE WHILE SITTING IN WHEELCHAIR, PARTICULARLY DURING ADLS, WOULD BENEFIT FROM EXERCISES TO STRENGTHEN THE SHOULDER ELEVATORS AND RETRACTORS Other medical issues: Gout: New gout symptoms of his left ankle, responded well to colchicine at his right hand with similar symptoms earlier on this visit * Restart colchicine 0.6 mg x3 doses * Continue colchicine 0.6 mg twice daily p.r.n. Until gout flare resolves. * Continue allopurinol 300 mg p.o. q.h.s. DVT prophylaxis. * Lovenox 40 mg subcutaneous daily, to continue while he is in inpatient regardless of mobility status. * SCDs to be worn at night. Pain management. This appears to be mostly acute pain related to the surgery. Goal to get pain under control so that he can participate in therapies. Opioid use may complicate his neurogenic bowel program. * Oxycodone 10 mg p.o. Twice daily, long-acting * Oxycodone 5-10 mg q.4 hours p.r.n. For breakthrough pain, short-acting * The patient also advised to apply ice 20 minutes 2-3 times per day to lower back for lower back spasms. * Changed acetaminophen dose to 1000 mg p.o. Twice daily, checking liver function tests as he stated that he would typically take up to 2000 mg single dose twice a day and sometimes for breakthrough. Advised patient to not take more than 1000 mg at a time, and take less than 3000 mg per day. * WILL BEGIN ZOLOFT 25 MG DAILY TO SEE IF THIS RAISES HIS PAIN THRESHOLD Spine precautions. * The patient will wear [place] brace while out of bed, except when showering. * Spine precautions are no repetitive bending, stooping, pushing, pulling, twisting or lifting. A lifting limitation of 5 pounds. Left olecranon bursitis. * Apply ice 20 minutes several times per day. * Elbow pads to use except for when showering Left rotator cuff tendonitis/subacromial bursitis. Nonsteroidal anti- inflammatories are relatively contraindicated given his recent spine surgery. * Physical therapy to work on rotator cuff strengthening exercises and strengthening of secondary scapular stabilizers, along with pendulum exercises. Follow-up: Patient will need to follow up with physiatry for ongoing management of chronic spinal cord injury issues including neurogenic bowel, neurogenic bladder, renal ultrasound and renal function monitoring, this could be Dr. Ruelas or at [facility] per his preference. He was treated at [facility] 30 years ago for his spinal cord injury. He will also need follow up with a urologist and possibly need urodynamic studies. Follow up with surgery as well scheduled for 10/04/2017.. Goal of transfers to and from wheelchair and car transfers with level of assistance that can provide. He plans to return to work as well. Tentative discharge home with family 10/14/2017. Home OT a 10/07/17 13:36 Subjective: He reports that his pain is worse in the morning increasing to about 9/10 in the arms and back. He reports some upper extremity stiffness along with pain in the left subacromial region. Objective: Vital Signs Temp Pulse Resp BP Pulse Ox 36.6 C 85 17 140/76 H 98 10/07/17 07:47 10/07/17 07:46 10/07/17 07:46 10/07/17 07:46 10/07/17 07:46 Laboratory Results 09/24/17 11:45 09/24/17 11:45 10/06/17 10/07/17 10/08/17 05:59 05:59 05:59 Intake Total 1324 1512 360 Output Total 525 550 150 Balance 799 962 210 Physical Exam - Physical Exam General Appearance: no apparent distress Respiratory: chest non-tender, lungs clear, normal breath sounds Cardiac/Chest: No edema Abdomen: normal bowel sounds, non-tender, soft Skin: warm/dry, other (Thoracic and lumbar spine incision is healing well.) Extremities: other (rotator cuff tenderness in the left subacromial region), No swelling, No Aravind's sign Neuro/Psych: motor weakness (Lower extremity motor exam unchanged from prior today's evaluation. 2-/5 right and left hip flexors, quadriceps and ankle dorsiflexors. No lower extremity spasticity) ICD10 Worksheet Patient Problems: Problems Problem Status Onset Leg weakness, bilateral Acute Spinal cord compression Acute Spinal stenosis, thoracic Acute
[2017-10-07] MEDS: METHOCARBAMOL 750 MG TAB PO SCH ×2 (15:50→20:44)
[2017-10-07] MEDS: TERAZOSIN HCL 2 MG CAP PO SCH (20:43)
[2017-10-07] MEDS: BACLOFEN 10 MG TAB PO SCH (20:44)
[2017-10-07] MEDS: ALLOPURINOL 300 MG TAB PO SCH (20:44)
[2017-10-07] MEDS: PATCH REMOVAL 1 EA PATCH TD SCH (20:48)
[2017-10-08] MEDS: PREGABALIN 100 MG CAP PO SCH ×3 (06:23→20:40)
[2017-10-08] MEDS: oxyCODONE IR 5 MG TAB PO PRN ×3 (06:27→17:29)
[2017-10-08] MEDS: LIDOCAINE 4%/MENTHOL 1% PATCH TD SCH (08:07)
[2017-10-08] MEDS: ENOXAPARIN 40 MG/0.4 ML SYR SC SCH (08:08)
[2017-10-08] MEDS: METHOCARBAMOL 750 MG TAB PO SCH ×3 (08:08→20:40)
[2017-10-08] MEDS: SERTRALINE HCL 25 MG TAB PO SCH (08:08)
[2017-10-08] MEDS: COLCHICINE 0.6 MG CAP/TAB PO SCH ×2 (08:15→20:40)
--- NOTE | 2017-10-08 12:19 | SOAPPROG ---
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 FAMILY MEETING TODAY WERE PROGRESS IN OCCUPATIONAL AND PHYSICAL THERAPY WERE DISCUSSED. PHYSICAL THERAPY STATES THE PATIENT HAS SOME ACTIVE MOVEMENT IN LOWER EXTREMITIES, BUT IT IS NOT FUNCTIONAL. OCCUPATIONAL THERAPY AGREED WITH THIS AND BOTH DISCIPLINE ARE WORKING ON TRANSFER TRAINING IN ANTICIPATION OF DISCHARGE HOME IN WHICH SHE WILL BE WHEELCHAIR DEPENDENT. COUNSELED PATIENT AND HIS THAT A GENERAL COURSE IN A SPINAL CORD INJURY HE MAY VERY WELL CONTINUED TO HAVE SLOW BUT STEADY GAINS IN TERMS OF VOLITIONAL LOWER EXTREMITY MOTOR CONTROL. PATIENT AND HIS ARE ALSO CONSIDERING A SHORT STAY AT [facility] WELL OUTPATIENT SPINAL CORD INJURY THERAPY AT [facility] Acute T9-T10 spinal cord injury due to spinal stenosis, status post T9-10 laminectomy and fusion on 09/12/2009. Thoracic and lumbar spine x-rays showed good placement of spinal hardware which is well seated. Chronic cervical level spinal cord injury with bilateral lower extremity weakness, more pronounced on the left, with current less than antigravity strength of the right and left hip flexors, quadriceps and hamstrings. Longstanding neurogenic bowel and bladder, incompletely controlled. Notably, he did have more weakness on the left leg premorbidly. * Initial functional independence measure 64 on 09/23/2017. Improved to 77 as of 09/30/2017. Current fem score is 85. Needs assistance with bed mobility to get his legs in and assistance for trunk weakness to get out of bed. He stands with 2 person assist in the parallel bars and can ambulate just a few feet. 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 Independent with upper body dressing. Minimal assist to hike is pants while doing lower body dressing seated. Needs assistance for AFO and shoes. PATIENT WOULD BENEFIT FROM AN ADDITIONAL 2-3 WEEKS PHYSICAL THERAPY TO IMPROVE ABILITY TO PERFORM ADLS, FOR BED MOBILITY, TRANSFERS AND STANDING TO ASSIST WITH TRANSFERS. * Continue PT and OT to maximize mobility and gait. * Check plain films for hardware stability, continues to have some pain isolated in the back, helped by rest. Spinal cord injury related issues: Neurogenic bowel: Reports a history of incontinence every 3 months or so, premorbid bowel movement once or twice a week. Goal will be to get on a regularly scheduled bowel program * Using bisacodyl suppository every other day after dinner with good result. 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 Reports a history of needing to urinate frequently, has bouts of incontinence. Has not had renal ultrasounds in the past. No knowledge of prior urodynamic studies. At high risk of high-pressure bladder. DURING FAMILY MEETING TODAY CASE MANAGEMENT STATES THAT THEY WILL HELP ARRANGE FOR HIM TO SEE A UROLOGIST AN OUTPATIENT. * Postvoid residuals 29 - 130 cc. * Increased terazosin from 2 mg to 4 mg at HS starting 09/27/2017. Reports improvement. * Education regarding neurogenic bladder * Recommend outpatient evaluation with renal ultrasound * Follow-up with rehabilitation physician for long-term management * Follow-up with a urologist for possible urodynamic studies * Monitor closely Spasticity: Related to spinal cord injury, present in the upper limbs but no spasticity appreciated in the lower limbs at this point. this discrepancy is likely because of his new acute injury. The patient does not report upper extremity spasticity is being problematic. * Continue Baclofen 10 mg p.o. q.h.s for now. * Consider increasing dose of baclofen if upper limb spasticity is problematic and as long as it is not interfering with lower limb strength * BECAUSE OF HIS COMPLAINTS OF INCREASED PAIN IN THE MORNING CHANGED HIM BACK TO 750 ROBAXIN SCHEDULED IN THE MORNING. HIS ROBAXIN WAS PREVIOUSLY CHANGED TO P.R.N. during the day starting on 09/30/2017 BECAUSE IT WAS MAKING HIM SLEEPY. HOWEVER, IF SLEEPINESS OVER SHADOWS PAIN RELIEF IN THEN WILL SWITCH HIM BACK TO P.R.N. IN THE MORNING. * Discussed stretching routine and recommended aggressive stretching for management, could also modify his baclofen schedule as needed for spasticity management throughout the day and night. Neuropathic pain: Premorbid * Continue Lyrica 100 mg p.o. t.i.d. * Monitor LEFT ROTATOR CUFF TENDINITIS-WILL ASK OCCUPATIONAL THERAPY TO PERFORM PENDULUM EXERCISES AND TO PROVIDE PATIENT WITH A THERA-BAND TO STRENGTH IN THE SUPRASPINATUS AND INFRASPINATUS. ALSO TO IMPROVE POSTURE WHILE SITTING IN WHEELCHAIR, PARTICULARLY DURING ADLS, WOULD BENEFIT FROM EXERCISES TO STRENGTHEN THE SHOULDER ELEVATORS AND RETRACTORS Other medical issues: Gout: New gout symptoms of his left ankle, responded well to colchicine at his right hand with similar symptoms earlier on this visit * Restart colchicine 0.6 mg TWICE DAILY DAY BEGINNING THIS MORNING APPARENTLY THIS WAS NOT STARTED OR WAS DISCONTINUED. * Continue allopurinol 300 mg p.o. q.h.s. DVT prophylaxis. * Lovenox 40 mg subcutaneous daily, to continue while he is in inpatient regardless of mobility status. * SCDs to be worn at night. Pain management. This appears to be mostly acute pain related to the surgery. Goal to get pain under control so that he can participate in therapies. Opioid use may complicate his neurogenic bowel program. * Oxycodone 10 mg p.o. Twice daily, long-acting * Oxycodone 5-10 mg q.4 hours p.r.n. For breakthrough pain, short-acting * The patient also advised to apply ice 20 minutes 2-3 times per day to lower back for lower back spasms. * Changed acetaminophen dose to 1000 mg p.o. Twice daily, checking liver function tests as he stated that he would typically take up to 2000 mg single dose twice a day and sometimes for breakthrough. Advised patient to not take more than 1000 mg at a time, and take less than 3000 mg per day. * BEGAN ZOLOFT 25 MG DAILY BEGINNING TODAY TO SEE IF THIS RAISES HIS PAIN THRESHOLD Spine precautions. * The patient will wear Balaji brace while out of bed, except when showering. * Spine precautions are no repetitive bending, stooping, pushing, pulling, twisting or lifting. A lifting limitation of 5 pounds. INSOMNIA-HAVE COUNSELED PATIENT TO ASK FOR ROBAXIN THIS EVENING TO SEE IF THIS HELPS WITH SLEEP AND IF THIS DOES NOT IMPROVE INSOMNIA THEN WILL BEGIN MELATONIN TOMORROW. Left olecranon bursitis. * Apply ice 20 minutes several times per day. * Elbow pads to use except for when showering Left rotator cuff tendonitis/subacromial bursitis. Nonsteroidal anti- inflammatories are relatively contraindicated given his recent spine surgery. * Physical therapy to work on rotator cuff strengthening exercises and strengthening of secondary scapular stabilizers, along with pendulum exercises. Follow-up: Patient will need to follow up with physiatry for ongoing management of chronic spinal cord injury issues including neurogenic bowel, neurogenic bladder, renal ultrasound and renal function monitoring, this could be Dr. Ruelas or at [facility], [place] per his preference. He was treated at [facility], [place] 30 years ago for his spinal cord injury. He will also need follow up with a urologist and possibly need urodynamic studies. Follow up with surgery as well scheduled for 10/04/2017.. Goal of transfers to and from wheelchair and car transfers with level of assistance that can provide. He plans to return to work as well. Tentative discharge home with family 10/14/2017. Home OT a Subjective: He reports that he is not sleeping well. Occupational therapy reports that he felt a little weak during therapy today. This may have been related to poor sleep last p.m. or from receiving Robaxin earlier this morning. He reports bladder continence. He has not had an erection since admission, however he reports he has feeling in the perineal region. He is using a suppository to have bowel movements. He reports sensation in his feet and he can feel mild improvements in motor recruitment in the lower extremities. Objective: Vital Signs Temp Pulse Resp BP Pulse Ox 36.6 C 99 16 100/63 94 10/07/17 18:29 10/08/17 08:00 10/08/17 08:00 10/08/17 08:00 10/08/17 08:00 Laboratory Results 09/24/17 11:45 09/24/17 11:45 10/07/17 10/08/17 10/09/17 05:59 05:59 05:59 Intake Total 1512 1370 380 Output Total 550 1050 Balance 962 320 380 Physical Exam - Physical Exam General Appearance: WD/WN, alert, no apparent distress Respiratory: lungs clear, normal breath sounds Abdomen: non-tender, soft Skin: normal color, warm/dry Extremities: No swelling, No Aravind's sign Neuro/Psych: alert, motor weakness (Neurological exam is consistent with incomplete quadriplegia with new onset paraplegia secondary to recent thoracolumbar myelopathy.), other (No lower extremity spasticity.) ICD10 Worksheet Patient Problems: Problems Problem Status Onset Leg weakness, bilateral Acute Spinal cord compression Acute Spinal stenosis, thoracic Acute
[2017-10-08] MEDS: BISACODYL 10 MG SUPP PR PRN (17:30)
[2017-10-08] MEDS: TERAZOSIN HCL 2 MG CAP PO SCH (20:40)
[2017-10-08] MEDS: BACLOFEN 10 MG TAB PO SCH (20:40)
[2017-10-08] MEDS: ALLOPURINOL 300 MG TAB PO SCH (20:40)
[2017-10-08] MEDS: PATCH REMOVAL 1 EA PATCH TD SCH (20:48)
[2017-10-09] MEDS: oxyCODONE IR 5 MG TAB PO PRN ×4 (05:18→21:14)
[2017-10-09] MEDS: PREGABALIN 100 MG CAP PO SCH ×3 (05:18→21:10)
[2017-10-09] MEDS: MAG HYDROX/AL HYDROX/SIMETH 30 ML UDCUP PO PRN ×2 (06:16→13:57)
[2017-10-09] MEDS: METHOCARBAMOL 750 MG TAB PO SCH ×3 (08:49→21:10)
[2017-10-09] MEDS: LIDOCAINE 4%/MENTHOL 1% PATCH TD SCH (08:49)
[2017-10-09] MEDS: COLCHICINE 0.6 MG CAP/TAB PO SCH ×2 (08:50→21:10)
[2017-10-09] MEDS: ENOXAPARIN 40 MG/0.4 ML SYR SC SCH (08:50)
[2017-10-09] MEDS: SERTRALINE HCL 25 MG TAB PO SCH (08:51)
--- NOTE | 2017-10-09 12:07 | SOAPPROG ---
SOAP Progress Note Assessment/Plan: Assessment: Assessment: 62-year-old male with premorbid symptomatic cervical spinal cord injury from 30 years ago now with acute on chronic thoracic level spinal cord injury with lower limb weakness, neurogenic bowel and bladder superimposed on prior symptoms for his cervical level injury. Acute T9-T10 spinal cord injury due to spinal stenosis, status post T9-10 laminectomy and fusion on 09/12/2009. Thoracic and lumbar spine x-rays showed good placement of spinal hardware which is well seated. Chronic cervical level spinal cord injury with bilateral lower extremity weakness, more pronounced on the left, with current less than antigravity strength of the right and left hip flexors, quadriceps and hamstrings. Longstanding neurogenic bowel and bladder, incompletely controlled. Notably, he did have more weakness on the left leg premorbidly. Initial functional independence measure 64 on 09/23/2017. Improved to 77 as of 09/30/2017. Current fem score is 85. Needs assistance with bed mobility to get his legs in and assistance for trunk weakness to get out of bed. He stands with 2 person assist in the parallel bars and can ambulate just a few feet. 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 Independent with upper body dressing. Minimal assist to hike is pants while doing lower body dressing seated. Needs assistance for AFO and shoes. PATIENT WOULD BENEFIT FROM AN ADDITIONAL 2-3 WEEKS PHYSICAL THERAPY TO IMPROVE ABILITY TO PERFORM ADLS, FOR BED MOBILITY, TRANSFERS AND STANDING TO ASSIST WITH TRANSFERS. Continue PT and OT to maximize mobility and gait. Check plain films for hardware stability, continues to have some pain isolated in the back, helped by rest. ACUTE GOUTY ATTACK LEFT ANKLE-SO FAR HE HAS RECEIVED 3 DOSES OF COLCHICINE 0.6 MG. WHEN THIS WAS INITIATED, HE DID NOT RECEIVE A LOADING DOSE OF 1.2 MG. THIS WAS CONFIRMED WITH PHARMACY THIS MORNING. WILL CONTINUE COLCHICINE 0.6 MG TWICE DAILY AND WILL DISCONTINUE AFTER THURSDAYS LAST DOSE. Spinal cord injury related issues: Neurogenic bowel: Reports a history of incontinence every 3 months or so, premorbid bowel movement once or twice a week. Goal will be to get on a regularly scheduled bowel program Using bisacodyl suppository every other day after dinner with good result. Now has suppository service tester given his decreased hand function, has not used the suppository and surgery yet, still working with OT Ongoing upper motor neuron neurogenic bowel education Monitor closely Neurogenic bladder: HE CURRENTLY REPORTS BLADDER CONTINENCE BUT HAS URGENCY AFTER 5 MIN. Reports a history of needing to urinate frequently, has bouts of incontinence. Has not had renal ultrasounds in the past. No knowledge of prior urodynamic studies. At high risk of high-pressure bladder. DURING FAMILY MEETING TODAY CASE MANAGEMENT STATES THAT THEY WILL HELP ARRANGE FOR HIM TO SEE A UROLOGIST AN OUTPATIENT. Postvoid residuals 29 - 130 cc. Increased terazosin from 2 mg to 4 mg at HS starting 09/27/2017. Reports improvement. Education regarding neurogenic bladder Recommend outpatient evaluation with renal ultrasound Follow-up with rehabilitation physician for long-term management Follow-up with a urologist for possible urodynamic studies Monitor closely Spasticity: Related to spinal cord injury, present in the upper limbs but no spasticity appreciated in the lower limbs at this point. this discrepancy is likely because of his new acute injury. The patient does not report upper extremity spasticity is being problematic. Continue Baclofen 10 mg p.o. q.h.s for now. Consider increasing dose of baclofen if upper limb spasticity is problematic and as long as it is not interfering with lower limb strength Discussed stretching routine and recommended aggressive stretching for management, could also modify his baclofen schedule as needed for spasticity management throughout the day and night. BACK SPASMS-HE REPORTS LESS BACK SPASMS WITH ROBAXIN 750 IN THE MORNING SO WE WILL KEEP THIS AT REGULARLY SCHEDULED. REVIEWED WITH PATIENT THAT THE AFTERNOON AND EVENING DOSE OF ROBAXIN IS P.R.N.. HE VERBALIZED UNDERSTANDING OF THIS. HE STATES THAT IN THE PAST HE HAS TAKEN INDOMETHACIN DURING ACUTE GOUTY FLARE UPS BUT DISCUSSED WITH HIM HESITATION TO PRESCRIBE THIS GIVEN THE FACT THAT THIS MEDICATION CAN CAUSE GI BLEEDING. Neuropathic pain: Premorbid Continue Lyrica 100 mg p.o. t.i.d. Monitor LEFT ROTATOR CUFF TENDINITIS-WILL ASK OCCUPATIONAL THERAPY TO PERFORM PENDULUM EXERCISES AND TO PROVIDE PATIENT WITH A THERA-BAND TO STRENGTH IN THE SUPRASPINATUS AND INFRASPINATUS. ALSO TO IMPROVE POSTURE WHILE SITTING IN WHEELCHAIR, PARTICULARLY DURING ADLS, WOULD BENEFIT FROM EXERCISES TO STRENGTHEN THE SHOULDER ELEVATORS AND RETRACTORS Other medical issues: DVT prophylaxis. Lovenox 40 mg subcutaneous daily, to continue while he is in inpatient regardless of mobility status. SCDs to be worn at night. Pain management. This appears to be mostly acute pain related to the surgery. Goal to get pain under control so that he can participate in therapies. Opioid use may complicate his neurogenic bowel program. Oxycodone 10 mg p.o. Twice daily, long-acting Oxycodone 5-10 mg q.4 hours p.r.n. For breakthrough pain, short-acting The patient also advised to apply ice 20 minutes 2-3 times per day to lower back for lower back spasms. Changed acetaminophen dose to 1000 mg p.o. Twice daily, checking liver function tests as he stated that he would typically take up to 2000 mg single dose twice a day and sometimes for breakthrough. Advised patient to not take more than 1000 mg at a time, and take less than 3000 mg per day. BEGAN ZOLOFT 25 MG DAILY BEGINNING TODAY TO SEE IF THIS RAISES HIS PAIN THRESHOLD Spine precautions. The patient will wear Bruce brace while out of bed, except when showering. Spine precautions are no repetitive bending, stooping, pushing, pulling, twisting or lifting. A lifting limitation of 5 pounds. INSOMNIA-HAVE COUNSELED PATIENT TO ASK FOR ROBAXIN THIS EVENING TO SEE IF THIS HELPS WITH SLEEP AND IF THIS DOES NOT IMPROVE INSOMNIA THEN WILL BEGIN MELATONIN TOMORROW. Left olecranon bursitis. Apply ice 20 minutes several times per day. Elbow pads to use except for when showering Left rotator cuff tendonitis/subacromial bursitis. Nonsteroidal anti- inflammatories are relatively contraindicated given his recent spine surgery. Physical therapy to work on rotator cuff strengthening exercises and strengthening of secondary scapular stabilizers, along with pendulum exercises. Follow-up: Patient will need to follow up with physiatry for ongoing management of chronic spinal cord injury issues including neurogenic bowel, neurogenic bladder, renal ultrasound and renal function monitoring, this could be Dr. Ruelas or at [facility] per his preference. He was treated at [facility] 30 years ago for his spinal cord injury. He will also need follow up with a urologist and possibly need urodynamic studies. Follow up with surgery as well scheduled for 10/04/2017.. Goal of transfers to and from wheelchair and car transfers with level of assistance that can provide. He plans to return to work as well. Tentative discharge home with family 10/14/2017. 10/09/17 12:01 10/09/17 12:07 10/09/17 12:08 Subjective: HE REPORTS RIGHT ANKLE PAIN DUE TO RECENT GOUTY FLARE UP. HE REPORTS LESS BACK PAIN AND SPASM SINCE THE ROBAXIN HAS BEEN CHANGED TO BEING REGULARLY SCHEDULED FOR THE MORNING DOSE ONLY. HE REPORTS OVERALL GOOD PAIN MANAGEMENT. Objective: Vital Signs Temp Pulse Resp BP Pulse Ox 36.4 C 63 16 120/75 93 10/09/17 05:29 10/09/17 05:29 10/09/17 05:29 10/09/17 05:29 10/09/17 05:29 Laboratory Results 09/24/17 11:45 09/24/17 11:45 10/08/17 10/09/17 10/10/17 05:59 05:59 05:59 Intake Total 1370 2080 Output Total 1050 750 Balance 320 1330 Physical Exam - Physical Exam General Appearance: WD/WN, alert, no apparent distress Respiratory: lungs clear, normal breath sounds Abdomen: normal bowel sounds, non-tender, soft Extremities: pedal edema (RIGHT ANKLE SWELLING WITH INCREASED PAIN WHEN INVERSION IS COMBINED WITH PLANTAR FLEXION.), No swelling, No Aravind's sign Neuro/Psych: motor weakness (NO CHANGE IN LOWER EXTREMITY MOTOR EXAM) ICD10 Worksheet Patient Problems: Problems Problem Status Onset Leg weakness, bilateral Acute Spinal cord compression Acute Spinal stenosis, thoracic Acute
[2017-10-09] MEDS: BACLOFEN 10 MG TAB PO SCH (21:10)
[2017-10-09] MEDS: TERAZOSIN HCL 2 MG CAP PO SCH (21:10)
[2017-10-09] MEDS: ALLOPURINOL 300 MG TAB PO SCH (21:10)
[2017-10-09] MEDS: PATCH REMOVAL 1 EA PATCH TD SCH (21:32)
[2017-10-10] MEDS: PREGABALIN 100 MG CAP PO SCH ×3 (05:19→21:10)
[2017-10-10] MEDS: oxyCODONE IR 5 MG TAB PO PRN ×3 (06:45→21:09)
[2017-10-10] MEDS: SERTRALINE HCL 25 MG TAB PO SCH (08:28)
[2017-10-10] MEDS: COLCHICINE 0.6 MG CAP/TAB PO SCH ×2 (08:28→21:10)
[2017-10-10] MEDS: METHOCARBAMOL 750 MG TAB PO SCH (08:28)
[2017-10-10] MEDS: ENOXAPARIN 40 MG/0.4 ML SYR SC SCH (08:39)
[2017-10-10] MEDS: LIDOCAINE 4%/MENTHOL 1% PATCH TD SCH (08:40)
--- NOTE | 2017-10-10 11:23 | SOAPPROG ---
SOAP Progress Note Assessment/Plan: Assessment: Assessment: 62-year-old male with premorbid symptomatic cervical spinal cord injury from 30 years ago now with acute on chronic thoracic level spinal cord injury with lower limb weakness, neurogenic bowel and bladder superimposed on prior symptoms for his cervical level injury. Acute T9-T10 spinal cord injury due to spinal stenosis, status post T9-10 laminectomy and fusion on 09/12/2009. Thoracic and lumbar spine x-rays showed good placement of spinal hardware which is well seated. Chronic cervical level spinal cord injury with bilateral lower extremity weakness, more pronounced on the left, with current less than antigravity strength of the right and left hip flexors, quadriceps and hamstrings. Longstanding neurogenic bowel and bladder, incompletely controlled. Notably, he did have more weakness on the left leg premorbidly. Initial functional independence measure 64 on 09/23/2017. Improved to 77 as of 09/30/2017. Current fem score is 85. Needs assistance with bed mobility to get his legs in and assistance for trunk weakness to get out of bed. He stands with 2 person assist in the parallel bars and can ambulate just a few feet. 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 Independent with upper body dressing. Minimal assist to hike is pants while doing lower body dressing seated. Needs assistance for AFO and shoes. HAD LENGTHY CONVERSATION WITH HIS DIAL POLISHER REGARDING DISCHARGE DISPOSITION. SHE IS TRYING TO CONTACT AND [facility] IT TO SEE IF HE CAN HAVE A 2 WEEK EXTENSION AN INPATIENT HERE ON THE REHAB UNIT. UNFORTUNATELY APPARENTLY NO ONE FROM THE INSURANCE COMPANY HAS RETURNED HER CALL REGARDING THIS. I GAVE HIM THE DIAL POLISHER LEASE OF MY CELL PHONE NUMBER IN CASE I NEED TO DO A PEER TO PEER PHONE CALL WITH SOMEBODY FROM [facility]. ACUTE GOUTY ATTACK LEFT ANKLE-HE WILL RECEIVE HIS LAST 2 DOSES OF COLCHICINE TODAY. OLECRANON BURSITIS-HE HAS HAD ANOTHER FLARE UP. I DO NOT THINK HE HAS BEEN WEARING HIS LEFT ELBOW PAD. HE WAS INSTRUCTED TO REAPPLY LEFT ELBOW PAD AND ICE 20 MIN SEVERAL TIMES PER DAY. Spinal cord injury related issues: Neurogenic bowel: Reports a history of incontinence every 3 months or so, premorbid bowel movement once or twice a week. Goal will be to get on a regularly scheduled bowel program Using bisacodyl suppository every other day after dinner with good result. Now has suppository student assistance counselor given his decreased hand function, has not used the suppository and surgery yet, still working with OT Ongoing upper motor neuron neurogenic bowel education Monitor closely Neurogenic bladder: HE CURRENTLY REPORTS BLADDER CONTINENCE BUT HAS URGENCY AFTER 5 MIN. Reports a history of needing to urinate frequently, has bouts of incontinence. Has not had renal ultrasounds in the past. No knowledge of prior urodynamic studies. At high risk of high-pressure bladder. DURING FAMILY MEETING TODAY CASE MANAGEMENT STATES THAT THEY WILL HELP ARRANGE FOR HIM TO SEE A UROLOGIST AN OUTPATIENT. Postvoid residuals 29 - 130 cc. Increased terazosin from 2 mg to 4 mg at HS starting 09/27/2017. Reports improvement. Education regarding neurogenic bladder Recommend outpatient evaluation with renal ultrasound Follow-up with rehabilitation physician for long-term management Follow-up with a urologist for possible urodynamic studies Monitor closely Spasticity: Related to spinal cord injury, present in the upper limbs but no spasticity appreciated in the lower limbs at this point. this discrepancy is likely because of his new acute injury. The patient does not report upper extremity spasticity is being problematic. Continue Baclofen 10 mg p.o. q.h.s for now. Consider increasing dose of baclofen if upper limb spasticity is problematic and as long as it is not interfering with lower limb strength Discussed stretching routine and recommended aggressive stretching for management, could also modify his baclofen schedule as needed for spasticity management throughout the day and night. BACK SPASMS-HE REPORTS HE IS A LITTLE TOO SLEEPY IN THE MORNING AND HE ATTRIBUTES THIS TO THE REGULARLY SCHEDULED ROBAXIN. THEREFORE WILL DC REGULARLY SCHEDULED ROBAXIN AND CHANGED TO 500 Q.8H P.R.N. MUSCLE SPASTICITY. Neuropathic pain: Premorbid Continue Lyrica 100 mg p.o. t.i.d. Monitor LEFT ROTATOR CUFF TENDINITIS-WILL ASK OCCUPATIONAL THERAPY TO PERFORM PENDULUM EXERCISES AND TO PROVIDE PATIENT WITH A THERA-BAND TO STRENGTH IN THE SUPRASPINATUS AND INFRASPINATUS. ALSO TO IMPROVE POSTURE WHILE SITTING IN WHEELCHAIR, PARTICULARLY DURING ADLS, WOULD BENEFIT FROM EXERCISES TO STRENGTHEN THE SHOULDER ELEVATORS AND RETRACTORS Other medical issues: DVT prophylaxis. Lovenox 40 mg subcutaneous daily, to continue while he is in inpatient regardless of mobility status. SCDs to be worn at night. Pain management. This appears to be mostly acute pain related to the surgery. Goal to get pain under control so that he can participate in therapies. Opioid use may complicate his neurogenic bowel program. Oxycodone 10 mg p.o. Twice daily, long-acting Oxycodone 5-10 mg q.4 hours p.r.n. For breakthrough pain, short-acting The patient also advised to apply ice 20 minutes 2-3 times per day to lower back for lower back spasms. Changed acetaminophen dose to 1000 mg p.o. Twice daily, checking liver function tests as he stated that he would typically take up to 2000 mg single dose twice a day and sometimes for breakthrough. Advised patient to not take more than 1000 mg at a time, and take less than 3000 mg per day. BEGAN ZOLOFT 25 MG DAILY BEGINNING TODAY TO SEE IF THIS RAISES HIS PAIN THRESHOLD Spine precautions. The patient will wear Balaji brace while out of bed, except when showering. Spine precautions are no repetitive bending, stooping, pushing, pulling, twisting or lifting. A lifting limitation of 5 pounds. INSOMNIA-HAVE COUNSELED PATIENT TO ASK FOR ROBAXIN THIS EVENING TO SEE IF THIS HELPS WITH SLEEP AND IF THIS DOES NOT IMPROVE INSOMNIA THEN WILL BEGIN MELATONIN TOMORROW. Left olecranon bursitis. Apply ice 20 minutes several times per day. Elbow pads to use except for when showering Left rotator cuff tendonitis/subacromial bursitis. Nonsteroidal anti- inflammatories are relatively contraindicated given his recent spine surgery. Physical therapy to work on rotator cuff strengthening exercises and strengthening of secondary scapular stabilizers, along with pendulum exercises. Follow-up: Patient will need to follow up with physiatry for ongoing management of chronic spinal cord injury issues including neurogenic bowel, neurogenic bladder, renal ultrasound and renal function monitoring, this could be Dr. Ruelas or at [facility] per his preference. He was treated at [facility] 30 years ago for his spinal cord injury. He will also need follow up with a urologist and possibly need urodynamic studies. Follow up with surgery as well scheduled for 10/04/2017.. Goal of transfers to and from wheelchair and car transfers with level of assistance that can provide. He plans to return to work as well. Tentative discharge home with family 10/14/2017. 10/09/17 12:01 10/09/17 12:07 10/09/17 12:08 10/10/17 11:19 Subjective: HE REPORTS LEFT ELBOW PAIN DUE TO FLARE UP OF LATTER BALM BURSITIS. HIS ANKLE PAIN FROM THE RECENT GOUTY ATTACK IS SUBSIDING. Objective: Vital Signs Temp Pulse Resp BP Pulse Ox 36.9 C 60 16 123/68 H 94 10/10/17 06:33 10/10/17 06:33 10/10/17 06:33 10/10/17 06:33 10/10/17 06:33 Laboratory Results 09/24/17 11:45 09/24/17 11:45 10/09/17 10/10/17 10/11/17 05:59 05:59 05:59 Intake Total 2080 1198 476 Output Total 750 200 Balance 1330 998 476 Physical Exam - Physical Exam General Appearance: WD/WN, alert, no apparent distress Respiratory: lungs clear, normal breath sounds Abdomen: normal bowel sounds, non-tender, soft Extremities: pedal edema, other (PRONOUNCED SWELLING LEFT ELBOW DUE TO OLECRANON BURSITIS. NO ERYTHEMA.), No swelling, No Aravind's sign Neuro/Psych: motor weakness (COMPLETE QUADRIPLEGIA. PATIENT IS SHOWING SLIGHT INCREASES INABILITY TO FLEX THE RIGHT AND LEFT HIPS AND EXTEND THE RIGHT AND LEFT LEGS.) ICD10 Worksheet Patient Problems: Problems Problem Status Onset Leg weakness, bilateral Acute Spinal cord compression Acute Spinal stenosis, thoracic Acute
[2017-10-10] MEDS ORDERED: METHOCARBAMOL 500 MG TAB PO PRN (11:45)
[2017-10-10] MEDS: BISACODYL 10 MG SUPP PR PRN (18:09)
[2017-10-10] MEDS: ALLOPURINOL 300 MG TAB PO SCH (21:09)
[2017-10-10] MEDS: BACLOFEN 10 MG TAB PO SCH (21:10)
[2017-10-10] MEDS: TERAZOSIN HCL 2 MG CAP PO SCH (21:10)
[2017-10-11] MEDS: PATCH REMOVAL 1 EA PATCH TD SCH ×2 (01:37→20:48)
[2017-10-11] MEDS: oxyCODONE IR 5 MG TAB PO PRN ×3 (06:12→18:01)
[2017-10-11] MEDS: PREGABALIN 100 MG CAP PO SCH ×3 (06:13→20:46)
[2017-10-11] MEDS: ENOXAPARIN 40 MG/0.4 ML SYR SC SCH (09:14)
[2017-10-11] MEDS: SERTRALINE HCL 25 MG TAB PO SCH (09:14)
[2017-10-11] MEDS: COLCHICINE 0.6 MG CAP/TAB PO SCH ×2 (09:14→20:45)
[2017-10-11] MEDS: LIDOCAINE 4%/MENTHOL 1% PATCH TD SCH (09:15)
--- NOTE | 2017-10-11 09:26 | SOAPPROG ---
SOAP Progress Note Assessment/Plan: Assessment: Assessment: 62-year-old male with premorbid symptomatic cervical spinal cord injury from 30 years ago now with acute on chronic thoracic level spinal cord injury with lower limb weakness, neurogenic bowel and bladder superimposed on prior symptoms for his cervical level injury. Acute T9-T10 spinal cord injury due to spinal stenosis, status post T9-10 laminectomy and fusion on 09/12/2009. Thoracic and lumbar spine x-rays showed good placement of spinal hardware which is well seated. Chronic cervical level spinal cord injury with bilateral lower extremity weakness, more pronounced on the left, with current less than antigravity strength of the right and left hip flexors, quadriceps and hamstrings. Longstanding neurogenic bowel and bladder, incompletely controlled. Notably, he did have more weakness on the left leg premorbidly. Initial functional independence measure 64 on 09/23/2017. Improved to 77 as of 09/30/2017. Current fem score is 85. Needs assistance with bed mobility to get his legs in and assistance for trunk weakness to get out of bed. He stands with 2 person assist in the parallel bars and can ambulate just a few feet. 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 Independent with upper body dressing. Minimal assist to hike is pants while doing lower body dressing seated. Needs assistance for AFO and shoes. HAD LENGTHY CONVERSATION WITH HIS CLINIC LPN REGARDING DISCHARGE DISPOSITION. SHE IS TRYING TO CONTACT AND [facility] IT TO SEE IF HE CAN HAVE A 2 WEEK EXTENSION AN INPATIENT HERE ON THE REHAB UNIT. UNFORTUNATELY APPARENTLY NO ONE FROM THE INSURANCE COMPANY HAS RETURNED HER CALL REGARDING THIS. I GAVE HIM THE CLINIC LPN LEASE OF MY CELL PHONE NUMBER IN CASE I NEED TO DO A PEER TO PEER PHONE CALL WITH SOMEBODY FROM [facility]. Gout-he finished his final dose of colchicine yesterday. He was counseled that in the future when he has gouty attacks he needs to remember the 1.2 mg loading dose. The previous gouty attack go did cause some impeding min in his rehab progress regarding physical therapy. OLECRANON BURSITIS-keep off left elbow as much as possible. Wear elbow pad at all times. Ice 20 min several times per day. Spinal cord injury related issues: Neurogenic bowel: Reports a history of incontinence every 3 months or so, premorbid bowel movement once or twice a week. Goal will be to get on a regularly scheduled bowel program Using bisacodyl suppository every other day after dinner with good result. Now has suppository manager investigations given his decreased hand function, has not used the suppository and surgery yet, still working with OT Ongoing upper motor neuron neurogenic bowel education Monitor closely Neurogenic bladder: HE CURRENTLY REPORTS BLADDER CONTINENCE BUT HAS URGENCY AFTER 5 MIN. Reports a history of needing to urinate frequently, has bouts of incontinence. Has not had renal ultrasounds in the past. No knowledge of prior urodynamic studies. At high risk of high-pressure bladder. DURING FAMILY MEETING TODAY CASE MANAGEMENT STATES THAT THEY WILL HELP ARRANGE FOR HIM TO SEE A UROLOGIST AN OUTPATIENT. Postvoid residuals 29 - 130 cc. Increased terazosin from 2 mg to 4 mg at HS starting 09/27/2017. Reports improvement. Education regarding neurogenic bladder Recommend outpatient evaluation with renal ultrasound Follow-up with rehabilitation physician for long-term management Follow-up with a urologist for possible urodynamic studies Monitor closely Spasticity: CURRENTLY NOT AN ISSUE. Related to spinal cord injury, present in the upper limbs but no spasticity appreciated in the lower limbs at this point. this discrepancy is likely because of his new acute injury. The patient does not report upper extremity spasticity is being problematic. Continue Baclofen 10 mg p.o. q.h.s for now. Consider increasing dose of baclofen if upper limb spasticity is problematic and as long as it is not interfering with lower limb strength Discussed stretching routine and recommended aggressive stretching for management, could also modify his baclofen schedule as needed for spasticity management throughout the day and night. BACK SPASMS-HE REPORTS HE IS A LITTLE TOO SLEEPY IN THE MORNING AND HE ATTRIBUTES THIS TO THE REGULARLY SCHEDULED ROBAXIN. THEREFORE WILL DC REGULARLY SCHEDULED ROBAXIN AND CHANGED TO 500 Q.8H P.R.N. MUSCLE SPASTICITY. Neuropathic pain: Premorbid Continue Lyrica 100 mg p.o. t.i.d. Monitor LEFT ROTATOR CUFF TENDINITIS-WILL ASK OCCUPATIONAL THERAPY TO PERFORM PENDULUM EXERCISES AND TO PROVIDE PATIENT WITH A THERA-BAND TO STRENGTH IN THE SUPRASPINATUS AND INFRASPINATUS. ALSO TO IMPROVE POSTURE WHILE SITTING IN WHEELCHAIR, PARTICULARLY DURING ADLS, WOULD BENEFIT FROM EXERCISES TO STRENGTHEN THE SHOULDER ELEVATORS AND RETRACTORS Other medical issues: DVT prophylaxis. Lovenox 40 mg subcutaneous daily, to continue while he is in inpatient regardless of mobility status. SCDs to be worn at night. Pain management. This appears to be mostly acute pain related to the surgery. Goal to get pain under control so that he can participate in therapies. Opioid use may complicate his neurogenic bowel program. Oxycodone 10 mg p.o. Twice daily, long-acting Oxycodone 5-10 mg q.4 hours p.r.n. For breakthrough pain, short-acting The patient also advised to apply ice 20 minutes 2-3 times per day to lower back for lower back spasms. Changed acetaminophen dose to 1000 mg p.o. Twice daily, checking liver function tests as he stated that he would typically take up to 2000 mg single dose twice a day and sometimes for breakthrough. Advised patient to not take more than 1000 mg at a time, and take less than 3000 mg per day. BEGAN ZOLOFT 25 MG DAILY BEGINNING TODAY TO SEE IF THIS RAISES HIS PAIN THRESHOLD Spine precautions. The patient will wear Balaji brace while out of bed, except when showering. Spine precautions are no repetitive bending, stooping, pushing, pulling, twisting or lifting. A lifting limitation of 5 pounds. INSOMNIA-HAVE COUNSELED PATIENT TO ASK FOR ROBAXIN THIS EVENING TO SEE IF THIS HELPS WITH SLEEP AND IF THIS DOES NOT IMPROVE INSOMNIA THEN WILL BEGIN MELATONIN TOMORROW. Left olecranon bursitis. Apply ice 20 minutes several times per day. Elbow pads to use except for when showering Left rotator cuff tendonitis/subacromial bursitis. Nonsteroidal anti- inflammatories are relatively contraindicated given his recent spine surgery. Physical therapy to work on rotator cuff strengthening exercises and strengthening of secondary scapular stabilizers, along with pendulum exercises. Follow-up: Patient will need to follow up with physiatry for ongoing management of chronic spinal cord injury issues including neurogenic bowel, neurogenic bladder, renal ultrasound and renal function monitoring, this could be Dr. Ruelas or at [facility] per his preference. He was treated at [facility] 30 years ago for his spinal cord injury. He will also need follow up with a urologist and possibly need urodynamic studies. Follow up with surgery as well scheduled for 10/04/2017.. Goal of transfers to and from wheelchair and car transfers with level of assistance that can provide. He plans to return to work as well. Tentative discharge home with family 10/14/2017. 10/09/17 12:01 10/09/17 12:07 10/09/17 12:08 10/10/17 11:19 10/11/17 09:26 Subjective: He reports his ankle pain is still subsiding. Yesterday was his 3rd and final day of the colchicine. He has been icing his left elbow. Objective: Vital Signs Temp Pulse Resp BP Pulse Ox 36.7 C 59 L 16 126/73 H 94 10/11/17 06:13 10/11/17 06:13 10/11/17 06:13 10/11/17 06:13 10/11/17 06:13 Laboratory Results 09/24/17 11:45 09/24/17 11:45 10/10/17 10/11/17 10/12/17 05:59 05:59 05:59 Intake Total 1198 1012 400 Output Total 200 825 500 Balance 998 187 -100 Physical Exam - Physical Exam General Appearance: WD/WN, alert, no apparent distress Respiratory: lungs clear, normal breath sounds Abdomen: normal bowel sounds, non-tender Extremities: other (Right and left ankles are mildly edematous, less pronounced when compared to previous visit. Left elbow olecranon bursitis), No swelling, No Aravind's sign Neuro/Psych: motor weakness (Incomplete quadriplegia his right lower extremity is stronger than his left but by today's exam he is showing it least 1/2 grade improvement in motor recruitment of the hip flexors, hamstrings and ankle dorsiflexors.) ICD10 Worksheet Patient Problems: Problems Problem Status Onset Leg weakness, bilateral Acute Spinal cord compression Acute Spinal stenosis, thoracic Acute
[2017-10-11] MEDS: TERAZOSIN HCL 2 MG CAP PO SCH (20:45)
[2017-10-11] MEDS: BACLOFEN 10 MG TAB PO SCH (20:45)
[2017-10-11] MEDS: ALLOPURINOL 300 MG TAB PO SCH (20:45)
[2017-10-12] MEDS: PREGABALIN 100 MG CAP PO SCH ×3 (06:30→21:21)
[2017-10-12] MEDS: oxyCODONE IR 5 MG TAB PO PRN ×4 (06:34→21:22)
[2017-10-12] MEDS: SERTRALINE HCL 25 MG TAB PO SCH (07:42)
[2017-10-12] MEDS: COLCHICINE 0.6 MG CAP/TAB PO SCH ×2 (07:42→21:21)
[2017-10-12] MEDS: ENOXAPARIN 40 MG/0.4 ML SYR SC SCH (07:42)
[2017-10-12] MEDS: LIDOCAINE 4%/MENTHOL 1% PATCH TD SCH (07:46)
--- NOTE | 2017-10-12 10:43 | SOAPPROG ---
SOAP Progress Note Assessment/Plan: Assessment/Plan: 62-year-old male with premorbid symptomatic cervical spinal cord injury from 30 years ago now with acute on chronic thoracic level spinal cord injury with lower limb weakness, neurogenic bowel and bladder superimposed on prior symptoms for his cervical level injury. Acute T9-T10 spinal cord injury due to spinal stenosis, status post T9-10 laminectomy and fusion on 09/12/2009. Thoracic and lumbar spine x-rays showed good placement of spinal hardware which is well seated. Chronic cervical level spinal cord injury with bilateral lower extremity weakness, more pronounced on the left, with current less than antigravity strength of the right and left hip flexors, quadriceps and hamstrings. Longstanding neurogenic bowel and bladder, incompletely controlled. Notably, he did have more weakness on the left leg premorbidly. Initial functional independence measure 64 on 09/23/2017. Improved to 77 as of 09/30/2017. Current fim score is 85. Needs assistance with bed mobility to get his legs in and assistance for trunk weakness to get out of bed. He stands with 2 person assist in the parallel bars and can ambulate just a few feet. 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 Independent with upper body dressing. Minimal assist to hike is pants while doing lower body dressing seated. Needs assistance for AFO and shoes. HAD LENGTHY CONVERSATION WITH HIS FASHION CONSULTANT SELLING REGARDING DISCHARGE DISPOSITION. SHE IS TRYING TO CONTACT AND [facility] IT TO SEE IF HE CAN HAVE A 2 WEEK EXTENSION AN INPATIENT HERE ON THE REHAB UNIT. UNFORTUNATELY APPARENTLY NO ONE FROM THE INSURANCE COMPANY HAS RETURNED HER CALL REGARDING THIS. I GAVE HIM THE FASHION CONSULTANT SELLING LEASE OF MY CELL PHONE NUMBER IN CASE I NEED TO DO A PEER TO PEER PHONE CALL WITH SOMEBODY FROM [facility]. Gout-he finished his final dose of colchicine 10/11. He was counseled that in the future when he has gouty attacks he needs to remember the 1.2 mg loading dose. The previous gouty attack did impede in his rehab progress regarding physical therapy. OLECRANON BURSITIS-keep off left elbow as much as possible. Wear elbow pad at all times. Ice 20 min several times per day. Spinal cord injury related issues: Neurogenic bowel: Reports a history of incontinence every 3 months or so, premorbid bowel movement once or twice a week. Goal will be to get on a regularly scheduled bowel program Using bisacodyl suppository every other day after dinner with good result. Now has suppository prevention coordinator given his decreased hand function, has not used the suppository yet, still working with OT Ongoing upper motor neuron neurogenic bowel education Monitor closely Neurogenic bladder: HE CURRENTLY REPORTS BLADDER CONTINENCE BUT HAS URGENCY AFTER 5 MIN. Reports a history of needing to urinate frequently, has bouts of incontinence. Has not had renal ultrasounds in the past. No knowledge of prior urodynamic studies. At high risk of high-pressure bladder. DURING FAMILY MEETING TODAY CASE MANAGEMENT STATES THAT THEY WILL HELP ARRANGE FOR HIM TO SEE A UROLOGIST AN OUTPATIENT. Postvoid residuals 29 - 130 cc. Increased terazosin from 2 mg to 4 mg at HS starting 09/27/2017. Reports improvement. Education regarding neurogenic bladder Recommend outpatient evaluation with renal ultrasound Follow-up with rehabilitation physician for long-term management Follow-up with a urologist for possible urodynamic studies Monitor closely Spasticity: CURRENTLY NOT AN ISSUE. Related to spinal cord injury, present in the upper limbs but no spasticity appreciated in the lower limbs at this point. this discrepancy is likely because of his new acute injury. The patient does not report upper extremity spasticity is being problematic. Continue Baclofen 10 mg p.o. q.h.s for now. Consider increasing dose of baclofen if upper limb spasticity is problematic and as long as it is not interfering with lower limb strength Discussed stretching routine and recommended aggressive stretching for management, could also modify his baclofen schedule as needed for spasticity management throughout the day and night. BACK SPASMS-HE REPORTS HE IS A LITTLE TOO SLEEPY IN THE MORNING AND HE ATTRIBUTES THIS TO THE REGULARLY SCHEDULED ROBAXIN. THEREFORE WILL DC REGULARLY SCHEDULED ROBAXIN AND CHANGED TO 500 Q.8H P.R.N. MUSCLE SPASTICITY. Neuropathic pain: Premorbid Continue Lyrica 100 mg p.o. t.i.d. Monitor LEFT ROTATOR CUFF TENDINITIS-WILL ASK OCCUPATIONAL THERAPY TO PERFORM PENDULUM EXERCISES AND TO PROVIDE PATIENT WITH A THERA-BAND TO STRENGTH IN THE SUPRASPINATUS AND INFRASPINATUS. ALSO TO IMPROVE POSTURE WHILE SITTING IN WHEELCHAIR, PARTICULARLY DURING ADLS, WOULD BENEFIT FROM EXERCISES TO STRENGTHEN THE SHOULDER ELEVATORS AND RETRACTORS Other medical issues: DVT prophylaxis. Lovenox 40 mg subcutaneous daily, to continue while he is in inpatient regardless of mobility status. SCDs to be worn at night. Pain management. This appears to be mostly acute pain related to the surgery. Goal to get pain under control so that he can participate in therapies. Opioid use may complicate his neurogenic bowel program. Oxycodone 10 mg p.o. Twice daily, long-acting Oxycodone 5-10 mg q.4 hours p.r.n. For breakthrough pain, short-acting The patient also advised to apply ice 20 minutes 2-3 times per day to lower back for lower back spasms. Changed acetaminophen dose to 1000 mg p.o. Twice daily, checking liver function tests as he stated that he would typically take up to 2000 mg single dose twice a day and sometimes for breakthrough. Advised patient to not take more than 1000 mg at a time, and take less than 3000 mg per day. BEGAN ZOLOFT 25 MG DAILY BEGINNING TODAY TO SEE IF THIS RAISES HIS PAIN THRESHOLD Spine precautions. The patient will wear Balaji brace while out of bed, except when showering. Spine precautions are no repetitive bending, stooping, pushing, pulling, twisting or lifting. A lifting limitation of 5 pounds. INSOMNIA-HAVE COUNSELED PATIENT TO ASK FOR ROBAXIN THIS EVENING TO SEE IF THIS HELPS WITH SLEEP AND IF THIS DOES NOT IMPROVE INSOMNIA THEN WILL BEGIN MELATONIN TOMORROW. Left olecranon bursitis. Apply ice 20 minutes several times per day. Elbow pads to use except for when showering Left rotator cuff tendonitis/subacromial bursitis. Nonsteroidal anti- inflammatories are relatively contraindicated given his recent spine surgery. Physical therapy to work on rotator cuff strengthening exercises and strengthening of secondary scapular stabilizers, along with pendulum exercises. Follow-up: Patient will need to follow up with physiatry for ongoing management of chronic spinal cord injury issues including neurogenic bowel, neurogenic bladder, renal ultrasound and renal function monitoring, this could be Dr. Ruelas or at [facility] per his preference. He was treated at [facility] 30 years ago for his spinal cord injury. He will also need follow up with a urologist and possibly need urodynamic studies. Follow up with surgery as well scheduled for 10/04/2017.. Goal of transfers to and from wheelchair and car transfers with level of assistance that can provide. He plans to return to work as well. Tentative discharge home with family 10/14/2017. Today's Plan: We were able to discuss the f/u care that he will need after he is discharged. His reported that they have called to [facility] and have been able to talk about setting up outpt therapy. Discussed with them that would be good to set an outpt visit with Dr. Mondragon as well for referrals for Renal US and to the urologist for a urological evaluation. Pt needs to also continue with a regular bowel program. no acute needs today - gout fare has resolved. 10/12/17 10:38 Subjective: Doing pretty well - has made some good progress during his inpatient stay and feeling stronger and more capable of performing self cares. Feeling ready for his upcoming d/c. Reports that his recent gout flare has resolved and that the pain is subsided. No fevers/chills. no recent incontinence/invols Objective: Vital Signs Temp Pulse Resp BP Pulse Ox 36.7 C 62 15 110/65 91 L 10/12/17 07:10 10/12/17 07:10 10/12/17 07:10 10/12/17 07:10 10/12/17 07:10 Laboratory Results 09/24/17 11:45 09/24/17 11:45 10/11/17 10/12/17 10/13/17 05:59 05:59 06:59 Intake Total 1012 630 Output Total 825 1500 200 Balance 187 -870 -200 Physical Exam - Physical Exam General Appearance: alert, no apparent distress EENT: PERRL/EOMI Respiratory: lungs clear Cardiac/Chest: regular rate, rhythm Abdomen: non-tender, soft Extremities: non-tender Neuro/Psych: normal mood/affect, oriented x 3 ICD10 Worksheet Patient Problems: Problems Problem Status Onset Leg weakness, bilateral Acute Spinal cord compression Acute Spinal stenosis, thoracic Acute
[2017-10-12] MEDS: BACLOFEN 10 MG TAB PO SCH (21:21)
[2017-10-12] MEDS: TERAZOSIN HCL 2 MG CAP PO SCH (21:21)
[2017-10-12] MEDS: ALLOPURINOL 300 MG TAB PO SCH (21:21)
[2017-10-12] MEDS: PATCH REMOVAL 1 EA PATCH TD SCH (23:18)
[2017-10-13] MEDS: PREGABALIN 100 MG CAP PO SCH ×3 (05:56→21:13)
[2017-10-13] MEDS: oxyCODONE IR 5 MG TAB PO PRN ×3 (05:56→18:18)
[2017-10-13] MEDS: SERTRALINE HCL 25 MG TAB PO SCH (08:20)
[2017-10-13] MEDS: ENOXAPARIN 40 MG/0.4 ML SYR SC SCH (08:20)
[2017-10-13] MEDS: LIDOCAINE 4%/MENTHOL 1% PATCH TD SCH (08:20)
[2017-10-13] MEDS: COLCHICINE 0.6 MG CAP/TAB PO SCH ×2 (08:20→21:13)
--- NOTE | 2017-10-13 10:41 | SOAPPROG ---
SOAP Progress Note Assessment/Plan: Assessment/Plan: 62-year-old male with premorbid symptomatic cervical spinal cord injury from 30 years ago now with acute on chronic thoracic level spinal cord injury with lower limb weakness, neurogenic bowel and bladder superimposed on prior symptoms for his cervical level injury. Acute T9-T10 spinal cord injury due to spinal stenosis, status post T9-10 laminectomy and fusion on 09/12/2009. Thoracic and lumbar spine x-rays showed good placement of spinal hardware which is well seated. Chronic cervical level spinal cord injury with bilateral lower extremity weakness, more pronounced on the left, with current less than antigravity strength of the right and left hip flexors, quadriceps and hamstrings. Longstanding neurogenic bowel and bladder, incompletely controlled. Notably, he did have more weakness on the left leg premorbidly. Initial functional independence measure 64 on 09/23/2017. Improved to 77 as of 09/30/2017. Current fim score is 85. Needs assistance with bed mobility to get his legs in and assistance for trunk weakness to get out of bed. He stands with 2 person assist in the parallel bars and can ambulate just a few feet. 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 Independent with upper body dressing. Minimal assist to hike is pants while doing lower body dressing seated. Needs assistance for AFO and shoes. HAD LENGTHY CONVERSATION WITH HIS STATE'S ATTORNEY REGARDING DISCHARGE DISPOSITION. SHE IS TRYING TO CONTACT AND [facility] IT TO SEE IF HE CAN HAVE A 2 WEEK EXTENSION AN INPATIENT HERE ON THE REHAB UNIT. UNFORTUNATELY APPARENTLY NO ONE FROM THE INSURANCE COMPANY HAS RETURNED HER CALL REGARDING THIS. I GAVE HIM THE STATE'S ATTORNEY LEASE OF MY CELL PHONE NUMBER IN CASE I NEED TO DO A PEER TO PEER PHONE CALL WITH SOMEBODY FROM [facility]. Gout-he finished his final dose of colchicine 10/11. He was counseled that in the future when he has gouty attacks he needs to remember the 1.2 mg loading dose. The previous gouty attack did impede in his rehab progress regarding physical therapy. OLECRANON BURSITIS-keep off left elbow as much as possible. Wear elbow pad at all times. Ice 20 min several times per day. Spinal cord injury related issues: Neurogenic bowel: Reports a history of incontinence every 3 months or so, premorbid bowel movement once or twice a week. Goal will be to get on a regularly scheduled bowel program Using bisacodyl suppository every other day after dinner with good result. 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 Reports a history of needing to urinate frequently, has bouts of incontinence. Has not had renal ultrasounds in the past. No knowledge of prior urodynamic studies. At high risk of high-pressure bladder. DURING FAMILY MEETING TODAY CASE MANAGEMENT STATES THAT THEY WILL HELP ARRANGE FOR HIM TO SEE A UROLOGIST AN OUTPATIENT. Postvoid residuals 29 - 130 cc. Increased terazosin from 2 mg to 4 mg at HS starting 09/27/2017. Reports improvement. Education regarding neurogenic bladder Recommend outpatient evaluation with renal ultrasound Follow-up with rehabilitation physician for long-term management Follow-up with a urologist for possible urodynamic studies Monitor closely Spasticity: CURRENTLY NOT AN ISSUE. Related to spinal cord injury, present in the upper limbs but no spasticity appreciated in the lower limbs at this point. this discrepancy is likely because of his new acute injury. The patient does not report upper extremity spasticity is being problematic. Continue Baclofen 10 mg p.o. q.h.s for now. Consider increasing dose of baclofen if upper limb spasticity is problematic and as long as it is not interfering with lower limb strength Discussed stretching routine and recommended aggressive stretching for management, could also modify his baclofen schedule as needed for spasticity management throughout the day and night. BACK SPASMS-HE REPORTS HE IS A LITTLE TOO SLEEPY IN THE MORNING AND HE ATTRIBUTES THIS TO THE REGULARLY SCHEDULED ROBAXIN. THEREFORE WILL DC REGULARLY SCHEDULED ROBAXIN AND CHANGED TO 500 Q.8H P.R.N. MUSCLE SPASTICITY. Neuropathic pain: Premorbid Continue Lyrica 100 mg p.o. t.i.d. Monitor LEFT ROTATOR CUFF TENDINITIS-WILL ASK OCCUPATIONAL THERAPY TO PERFORM PENDULUM EXERCISES AND TO PROVIDE PATIENT WITH A THERA-BAND TO STRENGTH IN THE SUPRASPINATUS AND INFRASPINATUS. ALSO TO IMPROVE POSTURE WHILE SITTING IN WHEELCHAIR, PARTICULARLY DURING ADLS, WOULD BENEFIT FROM EXERCISES TO STRENGTHEN THE SHOULDER ELEVATORS AND RETRACTORS Other medical issues: DVT prophylaxis. Lovenox 40 mg subcutaneous daily, to continue while he is in inpatient regardless of mobility status. SCDs to be worn at night. Pain management. This appears to be mostly acute pain related to the surgery. Goal to get pain under control so that he can participate in therapies. Opioid use may complicate his neurogenic bowel program. Oxycodone 10 mg p.o. Twice daily, long-acting Oxycodone 5-10 mg q.4 hours p.r.n. For breakthrough pain, short-acting The patient also advised to apply ice 20 minutes 2-3 times per day to lower back for lower back spasms. Changed acetaminophen dose to 1000 mg p.o. Twice daily, checking liver function tests as he stated that he would typically take up to 2000 mg single dose twice a day and sometimes for breakthrough. Advised patient to not take more than 1000 mg at a time, and take less than 3000 mg per day. BEGAN ZOLOFT 25 MG DAILY BEGINNING TODAY TO SEE IF THIS RAISES HIS PAIN THRESHOLD Spine precautions. The patient will wear Balaji brace while out of bed, except when showering. Spine precautions are no repetitive bending, stooping, pushing, pulling, twisting or lifting. A lifting limitation of 5 pounds. INSOMNIA-HAVE COUNSELED PATIENT TO ASK FOR ROBAXIN THIS EVENING TO SEE IF THIS HELPS WITH SLEEP AND IF THIS DOES NOT IMPROVE INSOMNIA THEN WILL BEGIN MELATONIN TOMORROW. Left olecranon bursitis. Apply ice 20 minutes several times per day. Elbow pads to use except for when showering Left rotator cuff tendonitis/subacromial bursitis. Nonsteroidal anti- inflammatories are relatively contraindicated given his recent spine surgery. Physical therapy to work on rotator cuff strengthening exercises and strengthening of secondary scapular stabilizers, along with pendulum exercises. Follow-up: Patient will need to follow up with physiatry for ongoing management of chronic spinal cord injury issues including neurogenic bowel, neurogenic bladder, renal ultrasound and renal function monitoring, this could be Dr. Ruelas or at [facility] per his preference. He was treated at [facility] 30 years ago for his spinal cord injury. He will also need follow up with a urologist and possibly need urodynamic studies. Follow up with surgery as well scheduled for 10/04/2017.. Goal of transfers to and from wheelchair and car transfers with level of assistance that can provide. He plans to return to work as well. Tentative discharge home with family 10/14/2017. Today's Plan: no new flares of gout - doing well with regards to continence/ control of his bowel and bladder. Pain is well controlled and no new concerns. Continue current rehab plan as outlined 10/13/17 10:38 Subjective: Doing well - slept pretty well last night - did have to get up a few times to use the restroom but use to this. No new pain concerns. Objective: Vital Signs Temp Pulse Resp BP Pulse Ox 36.8 C 87 14 99/59 L 92 10/13/17 08:00 10/13/17 08:00 10/13/17 08:00 10/13/17 08:00 10/13/17 08:00 Laboratory Results 09/24/17 11:45 09/24/17 11:45 10/12/17 10/13/17 10/14/17 04:59 05:59 05:59 Intake Total Output Total Balance Physical Exam - Physical Exam General Appearance: no apparent distress Respiratory: lungs clear, normal breath sounds Cardiac/Chest: regular rate, rhythm Abdomen: non-tender, soft Extremities: non-tender Neuro/Psych: normal mood/affect, oriented x 3 ICD10 Worksheet Patient Problems: Problems Problem Status Onset Leg weakness, bilateral Acute Spinal cord compression Acute Spinal stenosis, thoracic Acute
[2017-10-13] MEDS: TERAZOSIN HCL 2 MG CAP PO SCH (21:13)
[2017-10-13] MEDS: ALLOPURINOL 300 MG TAB PO SCH (21:13)
[2017-10-13] MEDS: BACLOFEN 10 MG TAB PO SCH (21:13)
[2017-10-13] MEDS: PATCH REMOVAL 1 EA PATCH TD SCH (22:39)
[2017-10-13] MEDS: BISACODYL 10 MG SUPP PR PRN (22:40)
[2017-10-14] MEDS: oxyCODONE IR 5 MG TAB PO PRN ×3 (05:31→21:03)
[2017-10-14] MEDS: PREGABALIN 100 MG CAP PO SCH ×3 (05:32→21:04)
[2017-10-14] MEDS: LIDOCAINE 4%/MENTHOL 1% PATCH TD SCH (07:58)
[2017-10-14] MEDS: COLCHICINE 0.6 MG CAP/TAB PO SCH ×2 (08:01→21:03)
[2017-10-14] MEDS: SERTRALINE HCL 25 MG TAB PO SCH (08:01)
[2017-10-14] MEDS: ENOXAPARIN 40 MG/0.4 ML SYR SC SCH (08:55)
[2017-10-14] MEDS: ACETAMINOPHEN 500 MG TAB PO PRN (09:02)
--- NOTE | 2017-10-14 14:09 | SOAPPROG ---
SOAP Progress Note Assessment/Plan: Assessment: Assessment: 62-year-old male with premorbid symptomatic cervical spinal cord injury from 30 years ago now with acute on chronic thoracic level spinal cord injury with lower limb weakness, neurogenic bowel and bladder superimposed on prior symptoms for his cervical level injury. Acute T9-T10 spinal cord injury due to spinal stenosis, status post T9-10 laminectomy and fusion on 09/12/2009. Thoracic and lumbar spine x-rays showed good placement of spinal hardware which is well seated. Chronic cervical level spinal cord injury with bilateral lower extremity weakness, more pronounced on the left. Overall neurological picture is chronic incomplete quadriplegia with paraplegia. Fortunately, I was able to get his inpatient stay extended by 1 week after discussing his case with the medical front desk specialist at [facility] . Initial functional independence measure 64 on 09/23/2017. Improved to 77 as of 09/30/2017. Current fem score is 85. Rehab staffing today: Case management his ramp has been installed. His had family training during the weekend. Tentative discharge date is set for 10/22. Physical therapy: He will be going home wheelchair dependent. He needs minimal assist to get out of bed he can perform lateral transfers standby assist with setup on level with slide board. He is stand pivot transfer with contact guard assist. He can ambulate 10-15 feet using AFOs with the FWW. He is independent with wheelchair mobility. Nursing reports that he is using the bowel suppository every other day. He was unable to use a suppository device and his has been assisting with this. He is continent of urine. Occupational therapy reports he is standby assist with grooming, hygiene, upper extremity dressing at the wheelchair level. Needs minimal assistance with lower body dressing moderate assistance with bathing. He is Min assist for lateral toilet transfers. Gout-he finished his final dose of colchicine yesterday. He was counseled that in the future when he has gouty attacks he needs to remember the 1.2 mg loading dose. The previous gouty attack go did cause some impeding min in his rehab progress regarding physical therapy. OLECRANON BURSITIS-keep off left elbow as much as possible. Wear elbow pad at all times. Ice 20 min several times per day. Spinal cord injury related issues: Neurogenic bowel: Reports a history of incontinence every 3 months or so, premorbid bowel movement once or twice a week. Goal will be to get on a regularly scheduled bowel program Using bisacodyl suppository every other day after dinner with good result. 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 Reports a history of needing to urinate frequently, has bouts of incontinence. Has not had renal ultrasounds in the past. No knowledge of prior urodynamic studies. At high risk of high-pressure bladder. DURING FAMILY MEETING TODAY CASE MANAGEMENT STATES THAT THEY WILL HELP ARRANGE FOR HIM TO SEE A UROLOGIST AN OUTPATIENT. Postvoid residuals 29 - 130 cc. Increased terazosin from 2 mg to 4 mg at HS starting 09/27/2017. Reports improvement. Education regarding neurogenic bladder Recommend outpatient evaluation with renal ultrasound Follow-up with rehabilitation physician for long-term management Follow-up with a urologist for possible urodynamic studies Monitor closely Spasticity: CURRENTLY NOT AN ISSUE. Related to spinal cord injury, present in the upper limbs but no spasticity appreciated in the lower limbs at this point. this discrepancy is likely because of his new acute injury. The patient does not report upper extremity spasticity is being problematic. Continue Baclofen 10 mg p.o. q.h.s for now. Consider increasing dose of baclofen if upper limb spasticity is problematic and as long as it is not interfering with lower limb strength Discussed stretching routine and recommended aggressive stretching for management, could also modify his baclofen schedule as needed for spasticity management throughout the day and night. BACK SPASMS-HE REPORTS HE IS A LITTLE TOO SLEEPY IN THE MORNING AND HE ATTRIBUTES THIS TO THE REGULARLY SCHEDULED ROBAXIN. THEREFORE WILL DC REGULARLY SCHEDULED ROBAXIN AND CHANGED TO 500 Q.8H P.R.N. MUSCLE SPASTICITY. Neuropathic pain: Premorbid Continue Lyrica 100 mg p.o. t.i.d. Monitor LEFT ROTATOR CUFF TENDINITIS-consider subacromial bursa injection with corticosteroid. WILL ASK OCCUPATIONAL THERAPY TO PERFORM PENDULUM EXERCISES AND TO PROVIDE PATIENT WITH A THERA-BAND TO STRENGTH IN THE SUPRASPINATUS AND INFRASPINATUS. ALSO TO IMPROVE POSTURE WHILE SITTING IN WHEELCHAIR, PARTICULARLY DURING ADLS, WOULD BENEFIT FROM EXERCISES TO STRENGTHEN THE SHOULDER ELEVATORS AND RETRACTORS Other medical issues: DVT prophylaxis. Lovenox 40 mg subcutaneous daily, to continue while he is in inpatient regardless of mobility status. SCDs to be worn at night. Pain management. This appears to be mostly acute pain related to the surgery. Goal to get pain under control so that he can participate in therapies. Opioid use may complicate his neurogenic bowel program. Oxycodone 10 mg p.o. Twice daily, long-acting Oxycodone 5-10 mg q.4 hours p.r.n. For breakthrough pain, short-acting The patient also advised to apply ice 20 minutes 2-3 times per day to lower back for lower back spasms. Changed acetaminophen dose to 1000 mg p.o. Twice daily, checking liver function tests as he stated that he would typically take up to 2000 mg single dose twice a day and sometimes for breakthrough. Advised patient to not take more than 1000 mg at a time, and take less than 3000 mg per day. BEGAN ZOLOFT 25 MG DAILY BEGINNING TODAY TO SEE IF THIS RAISES HIS PAIN THRESHOLD Spine precautions. The patient will wear Wyano brace while out of bed, except when showering. Spine precautions are no repetitive bending, stooping, pushing, pulling, twisting or lifting. A lifting limitation of 5 pounds. Left olecranon bursitis. Apply ice 20 minutes several times per day. Elbow pads to use except for when showering Follow-up: Patient will need to follow up with physiatry for ongoing management of chronic spinal cord injury issues including neurogenic bowel, neurogenic bladder, renal ultrasound and renal function monitoring, this could be Dr. Ruelas or at [facility] per his preference. He was treated at [facility] 30 years ago for his spinal cord injury. He will also need follow up with a urologist and possibly need urodynamic studies. Follow up with surgery as well scheduled for 10/04/2017.. 10/09/17 12:01 10/09/17 12:07 10/09/17 12:08 10/10/17 11:19 10/11/17 09:26 10/14/17 14:10 Subjective: He reports that his ankle pain is diminishing. He continues to complain of left subacromial pain which is worse at he performs a push up in his wheelchair to transfer. He notes this usually occurs 30-60 minutes after performing this activity. He states he has been given some rotator cuff strengthening exercises by my occupational therapy. He reports that his back pain and spasms are well controlled on the Robaxin p.r.n.. Objective: Vital Signs Temp Pulse Resp BP Pulse Ox 36.6 C 57 L 16 106/63 93 10/14/17 08:00 10/14/17 08:00 10/14/17 08:00 10/14/17 08:00 10/14/17 08:00 Laboratory Results 09/24/17 11:45 09/24/17 11:45 10/13/17 10/14/17 10/15/17 05:59 05:59 05:59 Intake Total 1180 600 Output Total 700 Balance 480 600 Physical Exam - Physical Exam General Appearance: WD/WN, alert, no apparent distress Respiratory: chest non-tender, lungs clear Abdomen: normal bowel sounds, non-tender, soft Extremities: other (Left elbow at in place. Olecranon bursitis noted), No swelling, No Aravind's sign (Left subacromial region is tender to palpation and increased with overhead activity. Positive Sosa test. Negative drop arm test. Positive Yergason's test.) Neuro/Psych: motor weakness (Incomplete quadriplegia with new onset paraplegia. Lower extremity motor exam unchanged from prior today's exam. No lower extremity hypertonicity. No ankle clonus.) ICD10 Worksheet Patient Problems: Problems Problem Status Onset Leg weakness, bilateral Acute Spinal cord compression Acute Spinal stenosis, thoracic Acute
[2017-10-14] MEDS: ALLOPURINOL 300 MG TAB PO SCH (21:04)
[2017-10-14] MEDS: TERAZOSIN HCL 2 MG CAP PO SCH (21:04)
[2017-10-14] MEDS: BACLOFEN 10 MG TAB PO SCH (21:04)
[2017-10-14] MEDS: PATCH REMOVAL 1 EA PATCH TD SCH (23:32)
[2017-10-15] MEDS: oxyCODONE IR 5 MG TAB PO PRN ×4 (05:37→21:09)
[2017-10-15] MEDS: PREGABALIN 100 MG CAP PO SCH ×3 (05:37→21:08)
[2017-10-15 08:54] LABS: PLATELET COUNT 226 10^3/uL (150-400)
--- NOTE | 2017-10-15 09:17 | SOAPPROG ---
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 Today's update: Patient feels that morning spasticity is sufficient controlled with his baclofen 10 mg p.o. At bedtime. He denies any history of heterotopic ossification but notes that he has some pain in his right hip but mostly when ambulating. No history of trauma, continue to monitor. He has not had any history of autonomic dysreflexia and I do not think that that is the reason he has variable blood pressure. Continue to monitor. A total of 25 min was spent on the floor in the care of the patient, the majority of which was spent in counseling coordination of care regarding incidence and symptoms of heterotopic ossification and autonomic dysreflexia with the patient. Acute T9-T10 spinal cord injury due to spinal stenosis, status post T9-10 laminectomy and fusion on 09/12/2009, on chronic cervical level tetraplegia. Spine x-rays on rehab reportedly normal for hardware. Chronic cervical level spinal cord injury with bilateral lower extremity weakness, more pronounced on the left. Physical therapy: He will be going home wheelchair dependent. He needs minimal assist to get out of bed he can perform lateral transfers standby assist with setup on level with slide board. He is stand pivot transfer with contact guard assist. He can ambulate 10-15 feet using AFOs with the FWW. He is independent with wheelchair mobility. Nursing reports that he is using the bowel suppository every other day. He was unable to use a suppository device and his has been assisting with this. He is continent of urine. Occupational therapy reports he is standby assist with grooming, hygiene, upper extremity dressing at the wheelchair level. Needs minimal assistance with lower body dressing moderate assistance with bathing. He is Min assist for lateral toilet transfers. Gout-he finished his final dose of colchicine course. Improved, no longer interfering with therapy. Olecranon bursitis-keep off left elbow as much as possible. Wear elbow pad at all times. Ice 20 min several times per day. Spinal cord injury related issues: Neurogenic bowel: Reports a history of incontinence every 3 months or so, premorbid bowel movement once or twice a week. Goal will be to get on a regularly scheduled bowel program Using bisacodyl suppository every other day after dinner with good result. 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 Reports a history of needing to urinate frequently, has bouts of incontinence. Has not had renal ultrasounds in the past. No knowledge of prior urodynamic studies. At high risk of high-pressure bladder. Increased terazosin from 2 mg to 4 mg at HS starting 09/27/2017. Reports improvement. Education regarding neurogenic bladder Recommend outpatient evaluation with renal ultrasound Follow-up with rehabilitation physician for long-term management Follow-up with a urologist for possible urodynamic studies Monitor closely Spasticity: Related to spinal cord injury, present in the upper limbs but no spasticity appreciated in the lower limbs at this point. this discrepancy is likely because of his new acute injury. The patient does not report upper extremity spasticity is being problematic. Continue Baclofen 10 mg p.o. q.h.s for now. Consider increasing dose of baclofen if upper limb spasticity is problematic and as long as it is not interfering with lower limb strength Back spasms: Continue physical therapy and symptomatic treatment Neuropathic pain: Premorbid Continue Lyrica 100 mg p.o. t.i.d. Monitor Left rotator cuff tendinosis-consider subacromial bursa injection with corticosteroid. Working with occupational therapy Other medical issues: DVT prophylaxis. Lovenox 40 mg subcutaneous daily, to continue while he is in inpatient regardless of mobility status. SCDs to be worn at night. Pain management. This appears to be mostly acute pain related to the surgery. Goal to get pain under control so that he can participate in therapies. Opioid use may complicate his neurogenic bowel program. Oxycodone 10 mg p.o. Twice daily, long-acting Oxycodone 5-10 mg q.4 hours p.r.n. For breakthrough pain, short-acting The patient also advised to apply ice 20 minutes 2-3 times per day to lower back for lower back spasms. Changed acetaminophen dose to 1000 mg p.o. Twice daily, checking liver function tests as he stated that he would typically take up to 2000 mg single dose twice a day and sometimes for breakthrough. Advised patient to not take more than 1000 mg at a time, and take less than 3000 mg per day. Was started on Zoloft 25 mg daily for pain management issues Spine precautions. The patient will wear Balaji brace while out of bed, except when showering. Spine precautions are no repetitive bending, stooping, pushing, pulling, twisting or lifting. A lifting limitation of 5 pounds. Left olecranon bursitis. Apply ice 20 minutes several times per day. Elbow pads to use except for when showering Follow-up: Patient will need to follow up with physiatry for ongoing management of chronic spinal cord injury issues including neurogenic bowel, neurogenic bladder, renal ultrasound and renal function monitoring, this could be Dr. Ruelas or at per his preference. He was treated at 30 years ago for his spinal cord injury. He will also need follow up with a urologist and possibly need urodynamic studies. Follow up with surgery as well scheduled for 10/04/2017. Goal of transfers to and from wheelchair and car transfers with level of assistance that can provide. He plans to return to work as well. Tentative discharge home with family 10/22/2017. Home OT and PT. 09/24/17 12:15 09/24/17 12:20 09/24/17 12:26 09/24/17 12:46 09/26/17 10:32 10/01/17 10:08 10/03/17 10:02 10/15/17 09:11 Subjective: Chief complaint: Chronic spinal cord injury issues No acute events overnight. Patient denies any history of heterotopic ossification, has not had problems with hip pain in the past but it notes some hip pain when working with therapists. He feels that is likely related to disuse. Additionally, he denies any history of autonomic dysreflexia symptoms but does endorse some periodic orthostatic hypotension that does not interfere with his function and he is able to anticipating control well. Denies any new shortness of breath or chest pain, no new numbness, tingling, or weakness. He feels spasticity is well controlled on the baclofen 10 mg p.o. At bedtime. Objective: Vital Signs Temp Pulse Resp BP Pulse Ox 36.7 C 53 L 16 107/63 94 10/15/17 08:00 10/15/17 08:00 10/15/17 08:00 10/15/17 08:00 10/15/17 08:00 Laboratory Results 10/15/17 06:00 10/14/17 10/15/17 10/16/17 05:59 05:59 05:59 Intake Total 1180 1050 120 Output Total 700 900 Balance 480 150 120 Physical Exam - Physical Exam General Appearance: alert, no apparent distress EENT: No scleral icterus (R), No scleral icterus (L) Respiratory: No respiratory distress, No accessory muscle use Cardiac/Chest: normal peripheral pulses, regular rate, rhythm, No edema Skin: other (Some dry scaly skin on his pretibial skin) Extremities: other (No tenderness around the lateral, medial, or posterior aspect of his right hip.), No pedal edema, No swelling Neuro/Psych: alert, normal mood/affect, oriented x 3 ICD10 Worksheet Patient Problems: Problems Problem Status Onset Leg weakness, bilateral Acute Spinal cord compression Acute Spinal stenosis, thoracic Acute
[2017-10-15] MEDS: COLCHICINE 0.6 MG CAP/TAB PO SCH ×2 (09:28→21:09)
[2017-10-15] MEDS: ENOXAPARIN 40 MG/0.4 ML SYR SC SCH (09:28)
[2017-10-15] MEDS: LIDOCAINE 4%/MENTHOL 1% PATCH TD SCH (09:29)
[2017-10-15] MEDS: SERTRALINE HCL 25 MG TAB PO SCH (09:30)
[2017-10-15] MEDS: BISACODYL 10 MG SUPP PR PRN (18:20)
[2017-10-15] MEDS: BACLOFEN 10 MG TAB PO SCH (21:08)
[2017-10-15] MEDS: ALLOPURINOL 300 MG TAB PO SCH (21:08)
[2017-10-15] MEDS: TERAZOSIN HCL 2 MG CAP PO SCH (21:08)
[2017-10-15] MEDS: PATCH REMOVAL 1 EA PATCH TD SCH (21:15)
[2017-10-16] MEDS: PREGABALIN 100 MG CAP PO SCH ×3 (05:56→21:03)
[2017-10-16] MEDS: oxyCODONE IR 5 MG TAB PO PRN ×3 (05:58→18:15)
[2017-10-16] MEDS: LIDOCAINE 4%/MENTHOL 1% PATCH TD SCH (08:12)
[2017-10-16] MEDS: SERTRALINE HCL 25 MG TAB PO SCH (08:13)
[2017-10-16] MEDS: COLCHICINE 0.6 MG CAP/TAB PO SCH ×2 (08:13→21:02)
[2017-10-16] MEDS: ENOXAPARIN 40 MG/0.4 ML SYR SC SCH (08:13)
--- NOTE | 2017-10-16 13:36 | SOAPPROG ---
SOAP Progress Note Assessment/Plan: Assessment: 62-year-old male with acute T9-T10 spinal cord injury due to spinal stenosis, status post T9-10 laminectomy and fusion on 09/12/2009, with chronic cervical level spinal cord injury with bilateral lower extremity weakness, more pronounced on the left. Longstanding neurogenic bowel and bladder, incompletely controlled. Notably, he did have more weakness on the left leg premorbidly. * Initial functional independence measure 64 on 09/23/2017. Improved to 77 as of 09/30/2017. He will be going home wheelchair dependent. He needs minimal assist to get out of bed he can perform lateral transfers standby assist with setup on level with slide board. He is stand pivot transfer with contact guard assist. He can ambulate 10-15 feet using AFOs with the FWW. He is independent with wheelchair mobility. 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 Independent with upper body dressing. Minimal assist to hike is pants while doing lower body dressing seated. Needs assistance for AFO and shoes. * Continue PT and OT to maximize mobility and gait. Spinal cord injury related issues: Neurogenic bowel: Reports a history of incontinence every 3 months or so, premorbid bowel movement once or twice a week. Goal will be to get on a regularly scheduled bowel program * Using bisacodyl suppository every other day after dinner with good result. 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 * Ongoing upper motor neuron neurogenic bowel education * Monitor closely Neurogenic bladder:? Reports a history of needing to urinate frequently, has bouts of incontinence. Has not had renal ultrasounds in the past. No knowledge of prior urodynamic studies. At high risk of high-pressure bladder. * Postvoid residuals 29 - 130 cc. No indication for catheterization. * Increased terazosin from 2 mg to 4 mg at HS starting 09/27/2017. Reports improvement. * Education regarding neurogenic bladder * Recommend outpatient evaluation with renal ultrasound * Follow-up with rehabilitation physician for long-term management * Follow-up with a urologist for possible urodynamic studies * Monitor closely Spasticity: Related to spinal cord injury, present in the upper limbs but no spasticity appreciated in the lower limbs at this point. this discrepancy is likely because of his new acute injury. * Continue Baclofen 10 mg p.o. q.h.s for now. * Consider increasing dose of baclofen if upper limb spasticity is problematic and as long as it is not interfering with lower limb strength * Per his request, changing methocarbamol to p.r.n. during the day starting on as it makes him sleepy. Neuropathic pain: Premorbid * Continue Lyrica 100 mg p.o. t.i.d. * Monitor Back pain. Premorbid use of hydrocodone. * Will schedule acetaminophen 1000 mg p.o. Three times daily starting 10/16/2017. * Discussed opiate use and that it would be in his best interest to reduce. Continue to monitor. Other medical issues: Gout: Flares resolved and continues scheduled colchicine. * Continue allopurinol 300 mg p.o. q.h.s. DVT prophylaxis. * Lovenox 40 mg subcutaneous daily, to continue while he is in inpatient regardless of mobility status. * SCDs to be worn at night. Spine precautions. * The patient will wear Balaji brace while out of bed, except when showering. * Spine precautions are no repetitive bending, stooping, pushing, pulling, twisting or lifting. A lifting limitation of 5 pounds. Left olecranon bursitis. * Apply ice 20 minutes several times per day. * Elbow pads to use except for when showering Left rotator cuff tendonitis/subacromial bursitis. Nonsteroidal anti- inflammatories are relatively contraindicated given his recent spine surgery. * Physical therapy to work on rotator cuff strengthening exercises and strengthening of secondary scapular stabilizers, along with pendulum exercises. Follow-up: Patient will need to follow up with physiatry for ongoing management of chronic spinal cord injury issues including neurogenic bowel, neurogenic bladder, renal ultrasound and renal function monitoring, this could be Dr. Ruelas or at [facility] per his preference. He was treated at [facility] 30 years ago for his spinal cord injury. He will also need follow up with a urologist and possibly need urodynamic studies. Goal of transfers to and from wheelchair and car transfers with level of assistance that can provide. He plans to return to work as well. Tentative discharge home with family 10/22/2017. Home OT and PT. 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 Says he has continued pain in the back. Reports that prior to his surgery he was using hydrocodone approximately once or twice a day. Says back pain has been worse for the past day. Also has left shoulder pain related to chronic wheelchair use for decades. Otherwise without any acute complaints. Objective: Vital Signs Temp Pulse Resp BP Pulse Ox 37.0 C 76 18 103/61 96 10/16/17 08:00 10/16/17 08:00 10/16/17 08:00 10/16/17 08:00 10/16/17 08:00 Laboratory Results 10/15/17 06:00 10/15/17 06:00 10/15/17 10/16/17 10/17/17 05:59 05:59 05:59 Intake Total 1050 608 Output Total 900 850 300 Balance 150 -242 -300 Physical Exam - Physical Exam General Appearance: WD/WN, alert, no apparent distress Respiratory: No respiratory distress, No accessory muscle use Skin: normal color, warm/dry Neuro/Psych: alert, normal mood/affect, oriented x 3 ICD10 Worksheet Patient Problems: Problems Problem Status Onset Leg weakness, bilateral Acute Spinal cord compression Acute Spinal stenosis, thoracic Acute
[2017-10-16] MEDS: ACETAMINOPHEN 500 MG TAB PO SCH ×2 (15:06→21:03)
[2017-10-16] MEDS: TERAZOSIN HCL 2 MG CAP PO SCH (21:02)
[2017-10-16] MEDS: ALLOPURINOL 300 MG TAB PO SCH (21:03)
[2017-10-16] MEDS: BACLOFEN 10 MG TAB PO SCH (21:03)
[2017-10-16] MEDS: PATCH REMOVAL 1 EA PATCH TD SCH (21:08)
[2017-10-17] MEDS: PREGABALIN 100 MG CAP PO SCH ×3 (06:04→21:19)
[2017-10-17] MEDS: ACETAMINOPHEN 500 MG TAB PO SCH ×3 (06:05→21:18)
[2017-10-17] MEDS: oxyCODONE IR 5 MG TAB PO PRN ×3 (06:09→21:19)
[2017-10-17] MEDS: SERTRALINE HCL 25 MG TAB PO SCH (08:04)
[2017-10-17] MEDS: LIDOCAINE 4%/MENTHOL 1% PATCH TD SCH (08:04)
[2017-10-17] MEDS: COLCHICINE 0.6 MG CAP/TAB PO SCH (08:04)
[2017-10-17] MEDS: ENOXAPARIN 40 MG/0.4 ML SYR SC SCH (08:04)
--- NOTE | 2017-10-17 09:02 | SOAPPROG ---
SOAP Progress Note Assessment/Plan: 62-year-old male with acute T9-T10 spinal cord injury due to spinal stenosis, status post T9-10 laminectomy and fusion on 09/12/2009, with chronic cervical level spinal cord injury with bilateral lower extremity weakness, more pronounced on the left. Longstanding neurogenic bowel and bladder, incompletely controlled. Notably, he did have more weakness on the left leg premorbidly. Today's update: Shoulder pain and exam consistent with mild impingement, recommending ongoing stretching and strengthening. Consider subacromial joint injection, but defer for now. Okay to stop colchicine and he will likely need some of this medication for his discharge home. No gout symptoms currently. He will also consider a decrease in his pain medications overall. He mostly endorses intermittent pain and 1st choice would be to decrease the long-acting opioids. He should use chemoprophylaxis for VTE prevention for 8 weeks following injury (ending approximately November 07) per PVA guidelines. A total of 35 min was spent on the floor in the care of the patient, the majority of which was spent counseling and coordination of care regarding pain management strategies, potentially decreasing medications, shoulder pain treatment strategies, and gout history. Function: * Initial functional independence measure 64 on 09/23/2017. Improved to 77 as of 09/30/2017. He will be going home with manual wheelchair as his primary mobility. He needs minimal assist to get out of bed he can perform lateral transfers standby assist with setup on level with slide board. He is stand pivot transfer with contact guard assist. He can ambulate 10-15 feet using AFOs with the FWW. He is independent with wheelchair mobility. 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 Independent with upper body dressing. Minimal assist to hike is pants while doing lower body dressing seated. Needs assistance for AFO and shoes. * Continue PT and OT to maximize mobility and gait. Spinal cord injury related issues: Neurogenic bowel: Reports a history of incontinence every 3 months or so, premorbid bowel movement once or twice a week. Goal will be to get on a regularly scheduled bowel program * Using bisacodyl suppository every other day after dinner with good result. 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 * Ongoing upper motor neuron neurogenic bowel education * Monitor closely Neurogenic bladder:? Reports a history of needing to urinate frequently, has bouts of incontinence. Has not had renal ultrasounds in the past. No knowledge of prior urodynamic studies. At high risk of high-pressure bladder. * Postvoid residuals 29 - 130 cc. No indication for catheterization. * Increased terazosin from 2 mg to 4 mg at HS starting 09/27/2017. Reports improvement. * Education regarding neurogenic bladder * Recommend outpatient evaluation with renal ultrasound * Follow-up with rehabilitation physician for long-term management * Follow-up with a urologist for possible urodynamic studies * Monitor closely Spasticity: Related to spinal cord injury, present in the upper limbs but no spasticity appreciated in the lower limbs at this point. this discrepancy is likely because of his new acute injury. * Continue Baclofen 10 mg p.o. q.h.s for now. * Consider increasing dose of baclofen if upper limb spasticity is problematic and as long as it is not interfering with lower limb strength * Per his request, changing methocarbamol to p.r.n. during the day starting on as it makes him sleepy. Neuropathic pain: Premorbid, he is not sure of the status and we could consider decreasing his Lyrica as a trial. This could happen as an inpatient or outpatient. * Continue Lyrica 100 mg p.o. t.i.d. * Monitor Back pain. Premorbid use of hydrocodone. * Will schedule acetaminophen 1000 mg p.o. Three times daily starting 10/16/2017. * Discussed opiate use and that it would be in his best interest to reduce. Continue to monitor. He will consider decreases. Other medical issues: Gout: Flares resolved. * Continue allopurinol 300 mg p.o. q.h.s. * Discontinue colchicine, would restart if he had a flare DVT prophylaxis. * Lovenox 40 mg subcutaneous daily, to continue while he is in inpatient regardless of mobility status. He should continue this as an outpatient until approximately November 07, or a total of 8 weeks after injury. Per the PVA guidelines. * SCDs to be worn at night. Spine precautions. * The patient will wear [place] brace while out of bed, except when showering. * Spine precautions are no repetitive bending, stooping, pushing, pulling, twisting or lifting. A lifting limitation of 5 pounds. Left olecranon bursitis. * Apply ice 20 minutes several times per day. * Elbow pads to use except for when showering Left rotator cuff tendonitis/subacromial bursitis. Nonsteroidal anti- inflammatories are relatively contraindicated given his recent spine surgery. * Physical therapy to work on rotator cuff strengthening exercises and strengthening of secondary scapular stabilizers, along with pendulum exercises. * No steroid injection for now given recent surgery, continue stretching and strengthening. Follow-up: Patient will need to follow up with physiatry for ongoing management of chronic spinal cord injury issues including neurogenic bowel, neurogenic bladder, renal ultrasound and renal function monitoring, this could be Dr. Ruelas or at [facility] per his preference. He was treated at [facility] 30 years ago for his spinal cord injury. He will also need follow up with a urologist and possibly need urodynamic studies. Goal of transfers to and from wheelchair and car transfers with level of assistance that can provide. He plans to return to work as well. Tentative discharge home with family 10/22/2017. Home OT and PT. 09/24/17 12:15 09/24/17 12:20 09/24/17 12:26 09/24/17 12:46 09/26/17 10:32 10/01/17 10:08 10/03/17 10:02 10/15/17 09:11 10/17/17 08:54 10/17/17 09:04 Subjective: Chief complaint: Shoulder pain No acute events overnight. Patient denies any new shortness of breath or chest pain, no new numbness, tingling, or weakness. He does endorse some ongoing left -sided shoulder pain greater than right. Mostly associates it with greater weight-bearing on his arms given his lower extremity weakness. Pain medications have been stable for a long. At time and we discussed decreasing numb starting with long-acting opioids, patient is unsure about this and feels that he is ambulating more in may have more pain. He would not like to the change them at this point. I counseled that these changes could happen as an inpatient or potentially as an outpatient but that he should consider it. No further gout symptoms, he is okay with stopping colchicine. Asked by nursing about the duration of Lovenox and whether he will need on discharge. Additionally, he reports he has not had shoulder problems in the past. Objective: Vital Signs Temp Pulse Resp BP Pulse Ox 36.6 C 61 18 105/60 94 10/16/17 19:30 10/16/17 19:30 10/16/17 19:30 10/16/17 19:30 10/16/17 19:30 Laboratory Results 10/15/17 06:00 10/15/17 06:00 10/16/17 10/17/17 10/18/17 05:59 05:59 05:59 Intake Total 608 1999 Output Total 850 2049 Balance -242 -50 Physical Exam - Physical Exam General Appearance: WD/WN, alert, no apparent distress EENT: No scleral icterus (R), No scleral icterus (L) Respiratory: No respiratory distress, No accessory muscle use Cardiac/Chest: normal peripheral pulses, regular rate, rhythm, No edema Skin: normal color, warm/dry, No cyanosis, No diaphoresis Extremities: other (No tenderness to palpation about the shoulder joint, no redness or swelling. Patient endorsed a little bit of discomfort with Sosa test, no tenderness on the biceps tendon groove. Other range of motion not painful but he does endorse a little bit of discomfort on the empty can test.), No pedal edema, No swelling Neuro/Psych: alert, normal mood/affect, oriented x 3, motor weakness (Bilateral leg weakness) ICD10 Worksheet Patient Problems: Problems Problem Status Onset Leg weakness, bilateral Acute Spinal cord compression Acute Spinal stenosis, thoracic Acute
[2017-10-17] MEDS: BISACODYL 10 MG SUPP PR PRN (18:04)
[2017-10-17] MEDS: TERAZOSIN HCL 2 MG CAP PO SCH (21:18)
[2017-10-17] MEDS: ALLOPURINOL 300 MG TAB PO SCH (21:19)
[2017-10-17] MEDS: BACLOFEN 10 MG TAB PO SCH (21:19)
[2017-10-17] MEDS: PATCH REMOVAL 1 EA PATCH TD SCH (22:34)
[2017-10-18] MEDS: PREGABALIN 100 MG CAP PO SCH ×3 (05:13→21:22)
[2017-10-18] MEDS: ACETAMINOPHEN 500 MG TAB PO SCH ×3 (05:13→21:23)
[2017-10-18] MEDS: oxyCODONE IR 5 MG TAB PO PRN ×3 (05:15→17:59)
[2017-10-18] MEDS: LIDOCAINE 4%/MENTHOL 1% PATCH TD SCH (09:00)
[2017-10-18] MEDS: SERTRALINE HCL 25 MG TAB PO SCH (09:12)
[2017-10-18] MEDS: ENOXAPARIN 40 MG/0.4 ML SYR SC SCH (09:15)
--- NOTE | 2017-10-18 11:51 | SOAPPROG ---
SOAP Progress Note Assessment/Plan: Assessment: 62-year-old male with acute T9-T10 spinal cord injury due to spinal stenosis, status post T9-10 laminectomy and fusion on 09/12/2009, with chronic cervical level spinal cord injury with bilateral lower extremity weakness, more pronounced on the left. Longstanding neurogenic bowel and bladder, incompletely controlled. Notably, he did have more weakness on the left leg premorbidly. * Initial functional independence measure 64 on 09/23/2017. Improved to 77 as of 09/30/2017; plateau at 85 subsequently. He will be going home wheelchair dependent. He needs minimal assist to get out of bed he can perform lateral transfers standby assist with setup on level with slide board. He is stand pivot transfer with contact guard assist. He can ambulate 10-15 feet using AFOs with the FWW. He is independent with wheelchair mobility. 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 Independent with upper body dressing. Minimal assist to hike is pants while doing lower body dressing seated. Needs assistance for AFO and shoes. * Continue PT and OT to maximize mobility and gait. Spinal cord injury related issues: Neurogenic bowel: Reports a history of incontinence every 3 months or so, premorbid bowel movement once or twice a week. Goal will be to get on a regularly scheduled bowel program * Using bisacodyl suppository every other day after dinner with good result. 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 assists. * Ongoing upper motor neuron neurogenic bowel education * Monitor closely Neurogenic bladder:? Reports a history of needing to urinate frequently, has bouts of incontinence. Has not had renal ultrasounds in the past. No knowledge of prior urodynamic studies. At high risk of high-pressure bladder. * Postvoid residuals 29 - 130 cc. No indication for catheterization. * Increased terazosin from 2 mg to 4 mg at HS starting 09/27/2017. Reports improvement. * Education regarding neurogenic bladder * Recommend outpatient evaluation with renal ultrasound * Follow-up with rehabilitation physician for long-term management * Follow-up with a urologist for possible urodynamic studies * Monitor closely Spasticity: Related to spinal cord injury, present in the upper limbs but no spasticity appreciated in the lower limbs at this point. this discrepancy is likely because of his new acute injury. * Continue Baclofen 10 mg p.o. q.h.s for now. * Consider increasing dose of baclofen if upper limb spasticity is problematic and as long as it is not interfering with lower limb strength * Per his request, changing methocarbamol to p.r.n. during the day starting on as it makes him sleepy. Neuropathic pain: Premorbid * Continue Lyrica 100 mg p.o. t.i.d. * Monitor Back pain. Premorbid use of hydrocodone. * Will schedule acetaminophen 1000 mg p.o. three times daily starting 10/16/2017. * Discussed opiate use and that it would be in his best interest to reduce. Continue to monitor. Other medical issues: Gout: Flares resolved and continues scheduled colchicine. * Continue allopurinol 300 mg p.o. q.h.s. DVT prophylaxis. * Lovenox 40 mg subcutaneous daily, to continue while he is in inpatient regardless of mobility status; continue total of 12 weeks from date of surgery. * SCDs to be worn at night. Spine precautions. * The patient will wear [place] brace while out of bed, except when showering. * Spine precautions are no repetitive bending, stooping, pushing, pulling, twisting or lifting. A lifting limitation of 5 pounds. Left olecranon bursitis. * Apply ice 20 minutes several times per day. * Elbow pads to use except for when showering Left rotator cuff tendonitis/subacromial bursitis. Nonsteroidal anti- inflammatories are relatively contraindicated given his recent spine surgery. * Physical therapy to work on rotator cuff strengthening exercises and strengthening of secondary scapular stabilizers, along with pendulum exercises. Follow-up: Patient will need to follow up with physiatry for ongoing management of chronic spinal cord injury issues including neurogenic bowel, neurogenic bladder, renal ultrasound and renal function monitoring, this could be Dr. Ruelas or at [facility] per his preference. He was treated at [facility] 30 years ago for his spinal cord injury. He will also need follow up with a urologist and possibly need urodynamic studies. Goal of transfers to and from wheelchair and car transfers with level of assistance that can provide. He plans to return to work as well. Tentative discharge home with family 10/22/2017. Home OT and PT. 10/18/17 11:48 10/18/17 11:54 Subjective: No complaints. He reports his pain is improving. He continues to take 10 mg of oxycodone SR twice a day but yesterday evening took 5 rather than 10 mg of oxycodone IR. Bowels are moving every other day with suppository. Objective: Vital Signs Temp Pulse Resp BP Pulse Ox 36.4 C 54 L 15 110/66 94 10/18/17 07:29 10/18/17 07:29 10/18/17 07:29 10/18/17 07:29 10/18/17 07:29 Laboratory Results 10/15/17 06:00 10/15/17 06:00 10/17/17 10/18/17 10/19/17 05:59 05:59 05:59 Intake Total 1999 1200 594 Output Total 2049 350 Balance -50 850 594 Physical Exam - Physical Exam General Appearance: WD/WN, alert, no apparent distress Respiratory: normal breath sounds, No crackles, No rhonchi, No wheezing Cardiac/Chest: regular rate, rhythm, No edema, No diastolic murmur, No systolic murmur Neuro/Psych: alert, normal mood/affect, oriented x 3 ICD10 Worksheet Patient Problems: Problems Problem Status Onset Leg weakness, bilateral Acute Spinal cord compression Acute Spinal stenosis, thoracic Acute
[2017-10-18] MEDS: BACLOFEN 10 MG TAB PO SCH (21:22)
[2017-10-18] MEDS: ALLOPURINOL 300 MG TAB PO SCH (21:22)
[2017-10-18] MEDS: TERAZOSIN HCL 2 MG CAP PO SCH (21:22)
[2017-10-18] MEDS: PATCH REMOVAL 1 EA PATCH TD SCH (21:29)
[2017-10-19] MEDS: PREGABALIN 100 MG CAP PO SCH ×3 (06:16→21:20)
[2017-10-19] MEDS: ACETAMINOPHEN 500 MG TAB PO SCH ×3 (06:16→21:20)
[2017-10-19] MEDS: oxyCODONE IR 5 MG TAB PO PRN ×3 (06:19→21:22)
[2017-10-19] MEDS: SERTRALINE HCL 25 MG TAB PO SCH (07:44)
[2017-10-19] MEDS: ENOXAPARIN 40 MG/0.4 ML SYR SC SCH (07:44)
[2017-10-19] MEDS: LIDOCAINE 4%/MENTHOL 1% PATCH TD SCH (07:45)
--- NOTE | 2017-10-19 14:49 | SOAPPROG ---
SOAP Progress Note Assessment/Plan: Assessment: 62-year-old male with acute T9-T10 spinal cord injury due to spinal stenosis, status post T9-10 laminectomy and fusion on 09/12/2009, with chronic cervical level spinal cord injury with bilateral lower extremity weakness, more pronounced on the left. Longstanding neurogenic bowel and bladder, incompletely controlled. Notably, he did have more weakness on the left leg premorbidly. * Functional independence measure 85. He will be going home wheelchair dependent. He needs minimal assist to get out of bed he can perform lateral transfers standby assist with setup on level with slide board. He is stand pivot transfer with contact guard assist. He can ambulate 10-15 feet using AFOs with the FWW. He is independent with wheelchair mobility. 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 Independent with upper body dressing. Minimal assist to hike is pants while doing lower body dressing seated. Needs assistance for AFO and shoes. * Continue PT and OT to maximize mobility and gait. Spinal cord injury related issues: Neurogenic bowel: Reports a history of incontinence every 3 months or so, premorbid bowel movement once or twice a week. Goal will be to get on a regularly scheduled bowel program * Using bisacodyl suppository every other day after dinner with good result. * Has been unable to use suppository core inserter . assists. * Ongoing upper motor neuron neurogenic bowel education * Monitor closely Neurogenic bladder:? Reports a history of needing to urinate frequently, has bouts of incontinence. Has not had renal ultrasounds in the past. No knowledge of prior urodynamic studies. At high risk of high-pressure bladder. * Postvoid residuals 29 - 130 cc. No indication for catheterization. * Increased terazosin from 2 mg to 4 mg at starting 09/27/2017. Reports improvement. * Education regarding neurogenic bladder * Recommend outpatient evaluation with renal ultrasound * Follow-up with rehabilitation physician for long-term management * Follow-up with a urologist for possible urodynamic studies * Monitor closely Spasticity: Related to spinal cord injury, present in the upper limbs but no spasticity appreciated in the lower limbs at this point. this discrepancy is likely because of his new acute injury. * Continue Baclofen 10 mg p.o. q.h.s for now. * Consider increasing dose of baclofen if upper limb spasticity is problematic and as long as it is not interfering with lower limb strength * Per his request, changing methocarbamol to p.r.n. during the day starting on as it makes him sleepy. Neuropathic pain: Premorbid * Continue Lyrica 100 mg p.o. t.i.d. * Monitor Back pain. Premorbid use of hydrocodone. * Will schedule acetaminophen 1000 mg p.o. three times daily starting 10/16/2017. * Discussed opiate use and that it would be in his best interest to reduce. Continue to monitor. Other medical issues: Gout: Flares resolved and continues scheduled colchicine. * Continue allopurinol 300 mg p.o. q.h.s. DVT prophylaxis. * Lovenox 40 mg subcutaneous daily, to continue while he is in inpatient regardless of mobility status; continue total of 12 weeks from date of surgery. * SCDs to be worn at night. Spine precautions. * The patient will wear [place] brace while out of bed, except when showering. * Spine precautions are no repetitive bending, stooping, pushing, pulling, twisting or lifting. A lifting limitation of 5 pounds. Left olecranon bursitis. * Apply ice 20 minutes several times per day. * Elbow pads to use except for when showering Left rotator cuff tendonitis/subacromial bursitis. Nonsteroidal anti- inflammatories are relatively contraindicated given his recent spine surgery. * Physical therapy to work on rotator cuff strengthening exercises and strengthening of secondary scapular stabilizers, along with pendulum exercises. Follow-up: Patient will need to follow up with physiatry for ongoing management of chronic spinal cord injury issues including neurogenic bowel, neurogenic bladder, renal ultrasound and renal function monitoring, this could be Dr. Ruelas or at [facility] per his preference. He was treated at [facility] 30 years ago for his spinal cord injury. He will also need follow up with a urologist and possibly need urodynamic studies. Goal of transfers to and from wheelchair and car transfers with level of assistance that can provide. He plans to return to work as well. Tentative discharge home with family 10/22/2017. Home OT and PT. Plan: Cont Dr Wells rehab treatment plan 10/19/17 14:46 Subjective: No new problems or C/O's Still with L shoulder pain No F/C/CP/SOB/N/V/D/C Objective: Vital Signs Temp Pulse Resp BP Pulse Ox 36.4 C 64 16 105/68 97 10/19/17 08:00 10/19/17 08:00 10/19/17 08:00 10/19/17 08:00 10/19/17 08:00 Laboratory Results 10/15/17 06:00 10/15/17 06:00 10/18/17 10/19/17 10/20/17 05:59 05:59 05:59 Intake Total 1200 1580 598 Output Total 350 575 500 Balance 850 1005 98 Physical Exam - Physical Exam General Appearance: alert, no apparent distress Neck: supple Respiratory: lungs clear Cardiac/Chest: regular rate, rhythm Back: Normal inspection (Wearing [place] Brace) Skin: normal color, warm/dry Extremities: swelling (L olecranon bursa, non-inflammed), No pedal edema, No calf tenderness Neuro/Psych: alert, normal mood/affect, oriented x 3, motor weakness, sensory deficit, other (No acute changes) ICD10 Worksheet Patient Problems: Problems Problem Status Onset Leg weakness, bilateral Acute Spinal cord compression Acute Spinal stenosis, thoracic Acute
[2017-10-19] MEDS: BISACODYL 10 MG SUPP PR PRN (17:36)
[2017-10-19] MEDS: TERAZOSIN HCL 2 MG CAP PO SCH (21:19)
[2017-10-19] MEDS: BACLOFEN 10 MG TAB PO SCH (21:20)
[2017-10-19] MEDS: ALLOPURINOL 300 MG TAB PO SCH (21:20)
[2017-10-19] MEDS: PATCH REMOVAL 1 EA PATCH TD SCH (21:27)
[2017-10-20] MEDS: PREGABALIN 100 MG CAP PO SCH ×3 (06:18→21:17)
[2017-10-20] MEDS: ACETAMINOPHEN 500 MG TAB PO SCH ×3 (06:18→21:18)
[2017-10-20] MEDS: oxyCODONE IR 5 MG TAB PO PRN ×2 (06:21→12:02)
[2017-10-20] MEDS: SERTRALINE HCL 25 MG TAB PO SCH (08:35)
[2017-10-20] MEDS: ENOXAPARIN 40 MG/0.4 ML SYR SC SCH (08:36)
[2017-10-20] MEDS: LIDOCAINE 4%/MENTHOL 1% PATCH TD SCH (08:37)
--- NOTE | 2017-10-20 12:44 | SOAPPROG ---
SOAP Progress Note Assessment/Plan: Assessment: 62-year-old male with acute T9-T10 spinal cord injury due to spinal stenosis, status post T9-10 laminectomy and fusion on 09/12/2009, with chronic cervical level spinal cord injury with bilateral lower extremity weakness, more pronounced on the left. Longstanding neurogenic bowel and bladder, incompletely controlled. Notably, he did have more weakness on the left leg premorbidly. * Functional independence measure 85. He will be going home wheelchair dependent. He needs minimal assist to get out of bed he can perform lateral transfers standby assist with setup on level with slide board. He is stand pivot transfer with contact guard assist. He can ambulate 10-15 feet using AFOs with the FWW. He is independent with wheelchair mobility. 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 Independent with upper body dressing. Minimal assist to hike is pants while doing lower body dressing seated. Needs assistance for AFO and shoes. * Continue PT and OT to maximize mobility and gait. Spinal cord injury related issues: Neurogenic bowel: Reports a history of incontinence every 3 months or so, premorbid bowel movement once or twice a week. Goal will be to get on a regularly scheduled bowel program * Using bisacodyl suppository every other day after dinner with good result. * Has been unable to use suppository battery vent plug inserter . assists. * Ongoing upper motor neuron neurogenic bowel education * Monitor closely Neurogenic bladder:? Reports a history of needing to urinate frequently, has bouts of incontinence. Has not had renal ultrasounds in the past. No knowledge of prior urodynamic studies. At high risk of high-pressure bladder. * Postvoid residuals 29 - 130 cc. No indication for catheterization. * Increased terazosin from 2 mg to 4 mg at starting 09/27/2017. Reports improvement. * Education regarding neurogenic bladder * Recommend outpatient evaluation with renal ultrasound * Follow-up with rehabilitation physician for long-term management * Follow-up with a urologist for possible urodynamic studies * Monitor closely Spasticity: Related to spinal cord injury, present in the upper limbs but no spasticity appreciated in the lower limbs at this point. this discrepancy is likely because of his new acute injury. * Continue Baclofen 10 mg p.o. q.h.s for now. * Consider increasing dose of baclofen if upper limb spasticity is problematic and as long as it is not interfering with lower limb strength * Per his request, changing methocarbamol to p.r.n. during the day starting on as it makes him sleepy. Neuropathic pain: Premorbid * Continue Lyrica 100 mg p.o. t.i.d. * Monitor Back pain. Reports increased LBP last few days, query 2/2 increased activity and/or decreased meds. * Premorbid use of hydrocodone. * Cont acetaminophen 1000 mg p.o. three times daily * Continue to monitor. Other medical issues: Gout: Flares resolved and continues scheduled colchicine. * Continue allopurinol 300 mg p.o. q.h.s. DVT prophylaxis. * Lovenox 40 mg subcutaneous daily, to continue while he is in inpatient regardless of mobility status; continue total of 12 weeks from date of surgery. * SCDs to be worn at night. Spine precautions. * The patient will wear Una brace while out of bed, except when showering. * Spine precautions are no repetitive bending, stooping, pushing, pulling, twisting or lifting. A lifting limitation of 5 pounds. Left olecranon bursitis. * Apply ice 20 minutes several times per day. * Elbow pads to use except for when showering Left rotator cuff tendonitis/subacromial bursitis. Nonsteroidal anti- inflammatories are relatively contraindicated given his recent spine surgery. * Physical therapy to work on rotator cuff strengthening exercises and strengthening of secondary scapular stabilizers, along with pendulum exercises. Follow-up: Patient will need to follow up with physiatry for ongoing management of chronic spinal cord injury issues including neurogenic bowel, neurogenic bladder, renal ultrasound and renal function monitoring, this could be Dr. Ruelas or at [facility] per his preference. He was treated at [facility] 30 years ago for his spinal cord injury. He will also need follow up with a urologist and possibly need urodynamic studies. Goal of transfers to and from wheelchair and car transfers with level of assistance that can provide. He plans to return to work as well. Tentative discharge home with family 10/22/2017. Home OT and PT. Plan: Cont Dr Wells rehab treatment plan 10/20/17 12:41 Objective: Vital Signs Temp Pulse Resp BP Pulse Ox 36.8 C 56 L 16 114/71 94 10/20/17 07:17 10/20/17 07:17 10/20/17 07:17 10/20/17 07:17 10/20/17 07:17 Laboratory Results 10/15/17 06:00 10/15/17 06:00 10/19/17 10/20/17 10/21/17 05:59 05:59 05:59 Intake Total 1580 838 500 Output Total 575 1500 Balance 1005 -662 500 Physical Exam - Physical Exam General Appearance: alert, no apparent distress Neck: supple Respiratory: lungs clear Cardiac/Chest: regular rate, rhythm Skin: normal color, warm/dry Extremities: swelling Neuro/Psych: alert, normal mood/affect, oriented x 3, motor weakness, sensory deficit, other (No acute changes) ICD10 Worksheet Patient Problems: Problems Problem Status Onset Leg weakness, bilateral Acute Spinal cord compression Acute Spinal stenosis, thoracic Acute
[2017-10-20] MEDS ORDERED: METHOCARBAMOL 750 MG TAB PO PRN (18:54)
[2017-10-20] MEDS: METHOCARBAMOL 500 MG TAB PO PRN (19:18)
[2017-10-20] MEDS: TERAZOSIN HCL 2 MG CAP PO SCH (21:17)
[2017-10-20] MEDS: ALLOPURINOL 300 MG TAB PO SCH (21:18)
[2017-10-20] MEDS: PATCH REMOVAL 1 EA PATCH TD SCH (21:18)
[2017-10-20] MEDS: BACLOFEN 10 MG TAB PO SCH (21:18)
[2017-10-21] MEDS: ACETAMINOPHEN 500 MG TAB PO SCH ×3 (06:15→21:28)
[2017-10-21] MEDS: PREGABALIN 100 MG CAP PO SCH ×3 (06:15→21:28)
[2017-10-21] MEDS: oxyCODONE IR 5 MG TAB PO PRN ×2 (06:16→10:29)
[2017-10-21] MEDS: LIDOCAINE 4%/MENTHOL 1% PATCH TD SCH (08:27)
[2017-10-21] MEDS: ENOXAPARIN 40 MG/0.4 ML SYR SC SCH (08:30)
[2017-10-21] MEDS: SERTRALINE HCL 25 MG TAB PO SCH (08:32)
--- NOTE | 2017-10-21 12:38 | SOAPPROG ---
SOAP Progress Note Assessment/Plan: Assessment: 62-year-old male with acute T9-T10 spinal cord injury due to spinal stenosis, status post T9-10 laminectomy and fusion on 09/12/2009, with chronic cervical level spinal cord injury with bilateral lower extremity weakness, more pronounced on the left. Longstanding neurogenic bowel and bladder, incompletely controlled. Notably, he did have more weakness on the left leg premorbidly. * Initial functional independence measure 64 on 09/23/2017. Improved to 77 as of 09/30/2017; plateau at 85 subsequently; improved to 87 as of 10/21/2017. Independent with bed mobility though may need minimal assist if fatigued. Transfers require standby assist to minimal assist depending on fatigue. Independent with wheelchair mobility. Walked 50 ft using a front wheeled walker. Shower transfer is modified independence to get in the shower and supervision to get out and he was able to bathe with modified independence. Dress his upper body with moderate independence and lower body with supervision using a grab bar for balance. Mobility is primarily by wheelchair. * Continue PT and OT to maximize mobility and gait. Spinal cord injury related issues: Neurogenic bowel: Reports a history of incontinence every 3 months or so, premorbid bowel movement once or twice a week. Goal will be to get on a regularly scheduled bowel program * Using bisacodyl suppository every other day after dinner with good result. * Uses suppository regulatory technician. assists. * Ongoing upper motor neuron neurogenic bowel education * Monitor closely Neurogenic bladder:? Reports a history of needing to urinate frequently, has bouts of incontinence. Has not had renal ultrasounds in the past. No knowledge of prior urodynamic studies. At high risk of high-pressure bladder. * Postvoid residuals 29 - 130 cc. No indication for catheterization. * Increased terazosin from 2 mg to 4 mg at HS starting 09/27/2017. Reports improvement. * Nursing reports nocturia times 2-3; uses handheld urinal. * Education regarding neurogenic bladder * Recommend outpatient evaluation with renal ultrasound * Follow-up with rehabilitation physician for long-term management * Follow-up with a urologist for possible urodynamic studies * Monitor closely Spasticity: Related to spinal cord injury, present in the upper limbs but no spasticity appreciated in the lower limbs at this point. this discrepancy is likely because of his new acute injury. * Continue Baclofen 10 mg p.o. q.h.s for now. * Per his request, changed methocarbamol to p.r.n. during the day starting on as it makes him sleepy. Neuropathic pain: Premorbid * Continue Lyrica 100 mg p.o. t.i.d. * Monitor Back pain. Premorbid use of hydrocodone. * Will schedule acetaminophen 1000 mg p.o. three times daily starting 10/16/2017. * Discussed opiate use and that it would be in his best interest to reduce. Continue to monitor. Other medical issues: Gout: Flares resolved and continues scheduled colchicine. * Continue allopurinol 300 mg p.o. q.h.s. DVT prophylaxis. * Lovenox 40 mg subcutaneous daily, to continue while he is in inpatient regardless of mobility status; continue total of 12 weeks from date of surgery. * SCDs to be worn at night. Spine precautions. * The patient will wear [place] brace while out of bed, except when showering. * Spine precautions are no repetitive bending, stooping, pushing, pulling, twisting or lifting. A lifting limitation of 5 pounds. Left olecranon bursitis. * Apply ice 20 minutes several times per day. * Elbow pads to use except for when showering Left rotator cuff tendonitis/subacromial bursitis. Nonsteroidal anti- inflammatories are relatively contraindicated given his recent spine surgery. * Physical therapy to work on rotator cuff strengthening exercises and strengthening of secondary scapular stabilizers, along with pendulum exercises. Follow-up: Patient will need to follow up with physiatry for ongoing management of chronic spinal cord injury issues including neurogenic bowel, neurogenic bladder, renal ultrasound and renal function monitoring; will follow- up at [facility], where he was treated 30 years ago for his spinal cord injury. He will also need follow up with a urologist and possibly need urodynamic studies. Attendant staffing, 15 min. Discussed with case management, nursing, PT, OT, pharmacy. Goal of transfers to and from wheelchair and car transfers with level of assistance that can provide. He plans to return to work as well. Discharge home with family 10/22/2017. Home OT and PT. 10/21/17 12:29 Subjective: No complaints today. Looking for to going home tomorrow. Overall pain has been improving but he has been walking more the past couple days and has had some increase in pain and use of oxycodone. Bowels continue to move every other day with suppository in the evening. Objective: Vital Signs Temp Pulse Resp BP Pulse Ox 36.6 C 57 L 16 117/63 95 10/21/17 07:19 10/21/17 07:19 10/21/17 07:19 10/21/17 07:19 10/21/17 07:19 Laboratory Results 10/15/17 06:00 10/15/17 06:00 10/20/17 10/21/17 10/22/17 05:59 05:59 05:59 Intake Total 838 1000 430 Output Total 1500 1326 225 Balance -662 -299 205 - Time Spent With Patient Time Spent With Patient: Greater than 35 min floor time today, including more than 50% of time in coordination of care during staffing meeting, and counseling patient and . Physical Exam - Physical Exam General Appearance: WD/WN, alert, no apparent distress Respiratory: No respiratory distress, No accessory muscle use Skin: normal color, warm/dry Neuro/Psych: alert, normal mood/affect, oriented x 3 ICD10 Worksheet Patient Problems: Problems Problem Status Onset Leg weakness, bilateral Acute Spinal cord compression Acute Spinal stenosis, thoracic Acute
--- NOTE | 2017-10-21 12:51 | PDOREHIP ---
Admission [facility] - Admission - 3 Day Assessment Period Admission Date/Day 1: 09/20/17 Day 2: 09/21/17 Day 3: 09/22/17 Discharge [facility] - Discharge - 3 Day Assessment Period 2 Days Prior to Anticipated Discharge Date: 10/20/17 1 Day Prior to Anticipated Discharge Date: 10/21/17 Anticipated Discharge Date: 10/22/17 - Discharge Skin Conditions Unhealed Pressure Ulcer (1 or more/Stage 1 or >)-Discharge: 0. No
[2017-10-21] MEDS: METHOCARBAMOL 500 MG TAB PO PRN (17:32)
[2017-10-21] MEDS: BISACODYL 10 MG SUPP PR PRN (18:03)
[2017-10-21] MEDS: ALLOPURINOL 300 MG TAB PO SCH (21:28)
[2017-10-21] MEDS: TERAZOSIN HCL 2 MG CAP PO SCH (21:28)
[2017-10-21] MEDS: BACLOFEN 10 MG TAB PO SCH (21:29)
[2017-10-21] MEDS: PATCH REMOVAL 1 EA PATCH TD SCH (21:29)
[2017-10-22] MEDS: ACETAMINOPHEN 500 MG TAB PO SCH ×2 (06:16→12:52)
[2017-10-22] MEDS: PREGABALIN 100 MG CAP PO SCH ×2 (06:16→11:45)
[2017-10-22] MEDS: oxyCODONE IR 5 MG TAB PO PRN ×2 (06:17→12:53)
[2017-10-22] MEDS: LIDOCAINE 4%/MENTHOL 1% PATCH TD SCH (08:15)
[2017-10-22] MEDS: ENOXAPARIN 40 MG/0.4 ML SYR SC SCH (08:15)
[2017-10-22] MEDS: SERTRALINE HCL 25 MG TAB PO SCH (08:15)
[2017-10-22 08:33] VITALS: BP 93/62; PULSE 66; RESP 18; TEMP 97.5; O2SAT 93
--- NOTE | 2017-10-22 20:09 | GDS ---
[f rep st] DISCHARGE SUMMARY ADMISSION DIAGNOSIS: Debility, status post T9-T10 spinal fusion with history of incomplete quadriplegia. DISCHARGE DIAGNOSIS: Debility, status post T9-T10 spinal fusion with history of incomplete quadriplegia. CONSULTATIONS: None. PROCEDURES: None. COMPLICATIONS: None. HISTORY/HOSPITAL COURSE: This patient came for rehabilitation after undergoing emergent T9 and T10 spinal fusion for spinal stenosis. He was particularly in need of a rehabilitation stay as he had preexisting debility due to history of incomplete quadriplegia for 30 years. He initially had very significant weakness of the lower extremities compared to his premorbid strength and he had associated debility. He had gradual, but steady improvement. His initial functional independence measure was 64, which is consistent with long term level of care. By the day before discharge, his functional independence measure had improved to 87, which is consistent with assisted living level of care. He was independent with bed mobility, though he needed minimal assistance at times if he was fatigued. He was able to transfer with standby assist to minimal assist depending on fatigue level. He was independent with wheelchair mobility. He was able to walk 50 feet using a front-wheeled walker. He could do a shower transfer with modified independence to get in the shower and supervision to get out of the shower, and he could bathe with modified independence. Upper body dressing was done with moderate independence and lower body with supervision using a grab bar for balance to hike his pants. His mobility was primarily by wheelchair. He reported that his usual bowel habits were approximately every 5 days, and it was assessed that he had neurogenic bowel and that he could do better with a bowel regimen. After much discussion, he eventually agreed to use of a bisacodyl suppository on an every other day basis in the evening. 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 A modified device was obtained for him which he could not use completely independently, but with the assistance of his , he was able to accomplish this and he succeeded in having a bowel movement every other day. He was considered to be at risk for neurogenic bladder given his incomplete quadriplegia and at risk of a high-pressure bladder. Postvoid residuals were checked and were in the 129-130 cc, so there was no indication for catheterization, though there was frequent urination and bouts of incontinence. He was begun on terazosin at 2 mg which was later increased to 4 mg at bedtime. He had improvement in his urinary frequency and resolution of urinary incontinence. He had upper limb spasticity. He was previously taking baclofen 10 mg at h.s. and this was continued. He also used methocarbamol on a p.r.n. basis occasionally, and more often in the evenings. Regarding pain management for back pain and surgical pain: Prior to surgery he was using hydrocodone. He was admitted to Inpatient Rehabilitation with oxycodone continuous release 10 mg twice daily and oxycodone immediate release 5 -10 mg every 4 hours on a p.r.n. basis. Acetaminophen was scheduled in the hopes that he would use less oxycodone and his use decreased considerably. In the last 2 days of his stay, he used p.r.n. 10 mg oxycodone only twice each day. Regarding chronic neuropathic pain: He was continued on pregabalin. He had 2 episodes of gout while he was inpatient. These were treated with colchicine. He was continued on allopurinol. Regarding DVT prophylaxis: Per the Disabled [place]'s guidelines, regarding incomplete paraplegia and worsened lower extremity function: He will be continued on enoxaparin for a total of 12 weeks post surgery. He had left olecranon bursitis. This was treated with ice and p.r.n. elbow pads and did not remain persistently bothersome. LABORATORY AND RADIOLOGY STUDIES: Labs and studies during his stay: CBC was essentially within normal limits. He had very mild anemia on 10/15/2017, with a hemoglobin of 12.6, and hematocrit of 37.4. Serum chemistry revealed normal renal function and electrolytes as well as normal liver function tests. FAMILY CONFERENCE: A family conference was held on the day of discharge with detailed discussion of his functional status and care needs. Attending were Case Management, physician, Nursing, PT, and OT, as well as the patient and his . CONDITION UPON DISCHARGE: Good. ACTIVITY: Ad ольга, but no driving while he is on opiates and until he is cleared regarding spinal precautions. He should consider adding hand controls to his car once he is cleared to drive. DIET: Regular. FOLLOW-UP: Date of next appointment: He will see his primary care provider, Dr. Mauricio Xiao on 10/25/2017, NeurosurgeDr. Oj casas on 2017, Urologist, Joseluis Gutierrez D.O. on 10/31/2017, and he will follow up with [facility] regarding overall physiatry needs for chronic incomplete paraplegia. MEDICATIONS ON DISCHARGE: 1. Acetaminophen 1500 mg p.o. twice daily p.r.n. 2. Oxycodone continuous release 10 mg p.o. twice daily. 3. Oxycodone immediate release 5-10 mg p.o. q.4 hours p.r.n. 4. Terazosin 4 mg p.o. at bedtime. 5. Sertraline 25 mg p.o. daily. 6. Senna 1 tablet p.o. twice daily p.r.n. 7. Pregabalin 100 mg p.o. three times daily. 8. Polyethylene glycol 17 grams p.o. daily p.r.n. 9. Aquaphor ointment p.r.n. 10. Methocarbamol 500 mg p.o. three times daily p.r.n. 11. Lidocaine patch to back daily. 12. Enoxaparin 40 mg subcutaneous daily for a total of 12 weeks post surgery. 13. Bisacodyl 10 mg rectal suppository every other night. 14. Baclofen 10 mg p.o. at bedtime. 15. Allopurinol 300 mg p.o. at bedtime. ISSUES TO BE ADDRESSED AT FOLLOWUP: 1. Functional status: He will have home PT and OT to assess his ongoing rehabilitation and care needs in the context of being at home. He can follow up with his primary care provider regarding his progress. 2. Pain management: He has already begun to use fewer opiates. He was encouraged, once he was no longer using very much oxycodone immediate release, to discontinue the oxycodone continuous release and proceed with a taper of the oxycodone immediate release. He can follow up with these issues also with his primary care provider, Dr. Xiao. 3. Possible high-pressure bladder as a consequence of incomplete paraplegia. Continue trazodone and follow up with Urologist, Dr. Gutierrez. Greater than 30 min were spent on this discharge, including medication reconciliation, coordination of care, and counseling patient and during family meeting. /[id number]/MODL MTDD
== END 2017-10-22 14:14 | disposition home health service (06) | DRG 949 ==
LOC: BREH 09-20 14:00
PROVIDERS: ADMIT Physical Medicine & Rehabilitation; ATTEND Internal Medicine
PROC: F08Z7ZZ Vocational Activities and Functional Community or Work Reintegration Skills Treatment (ICD-10-PCS; principal; 2017-09-20)
PROC: F07M3ZZ Motor Function Treatment of Musculoskeletal System - Whole Body (ICD-10-PCS; principal; 2017-09-20)
DX: Z48.811 Encounter for surgical aftercare following surgery on the nervous system (principal); R53.81 Other malaise; Z98.1 Arthrodesis status; G82.52 Quadriplegia, C1-C4 incomplete; M70.22 Olecranon bursitis, left elbow; M10.9 Gout, unspecified; N40.0 Benign prostatic hyperplasia without lower urinary tract symptoms; M62.830 Muscle spasm of back; E66.3 Overweight; I95.9 Hypotension, unspecified; Z68.28 Body mass index [BMI] 28.0-28.9, adult
CPT/HCPCS: 97110-GO; 97110-GP; 97112-GO; 97112-GP; 97116-GP; 97140-GO; 97163-GP; 97166-GO; 97530-GO; 97530-GP; 97535-GO; 97542-GP; 99366-GO; J1650